=== PATIENT | male | born 1940 | race Caucasian/White ===

== ENCOUNTER 2018-02-20 07:35 | Emergency (ER) | payer MEDICARE, OTHER ==
[2018-02-20] MEDS: Albuterol/Ipratropium 3.0-0.5 MG/3 ML Neb Soln NEB ONE (08:36)
[2018-02-20] MEDS: methylPREDNISolone Sodium Succinate 125 MG/2 ML SDV IVPUSH ONE (08:36)
[2018-02-20] MEDS: Sodium Chloride 0.9% 10 ML Syringe FLUSH PRN (08:36)
--- NOTE | 2018-02-20 08:37 | EDM.PDOC ---
ED HPI GENERAL MEDICAL PROBLEM - General Chief Complaint: Respiratory Problem Stated Complaint: DIFFICULTY BREATHING Time Seen by Provider: 02/20/18 08:19 Source of Information: Reports: Patient, Old Records, RN Notes Reviewed History Limitations: Reports: No Limitations - History of Present Illness INITIAL COMMENTS - FREE TEXT/NARRATIVE: 78-year-old gentleman presents to the emergency department today with complaint of shortness of breath, he states is been short of breath for the last 3 or 4 days he has been actively wheezing he normally uses antibiotic and prednisone however he is out of those medications when he gets in this position. 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 - Related Data Allergies Allergy/AdvReac Type Severity Reaction Status Date / Time No Known Allergies Allergy Verified 02/20/18 07:47 Home Meds: Home Meds Albuterol [Ventolin HFA] 2 puff IN ASDIRECTED PRN 02/20/18 [History] Aspirin [Halfprin] 1 tab PO DAILY 02/20/18 [History] Fexofenadine [Manisha] 1 tab PO ASDIRECTED 02/20/18 [History] Fluticasone/Salmeterol [Advair 500-50] 1 puff IH BID 02/20/18 [History] Lisinopril 40 mg PO DAILY 02/20/18 [History] Metoprolol Succinate [Toprol XL] 1 tab PO DAILY 02/20/18 [History] Triamterene/Hydrochlorothiazid [Maxzide 75 mg-50 mg Tablet] 1 tab PO DAILY 02/20 [History] amLODIPine Besylate [Amlodipine Besylate] 10 mg PO DAILY 02/20/18 [History] atorvaSTATin Calcium [Lipitor] 20 mg PO BEDTIME 02/20/18 [History] metFORMIN [Glucophage] 1,000 mg PO BIDMEALS 02/20/18 [History] predniSONE 20 mg PO DAILY 02/20/18 [History] Past Medical History HEENT History: Reports: Hard of Hearing, Impaired Vision Cardiovascular History: Reports: Arrhythmia, Hypertension Respiratory History: Reports: COPD, SOB, Other (See Below) Other Respiratory History: Aspergillus Gastrointestinal History: Reports: Other (See Below) Other Gastrointestinal History: umbilical hernia Musculoskeletal History: Reports: Fracture Endocrine/Metabolic History: Reports: Diabetes, Type II, Other (See Below) Other Endocrine/Metabolic History: hyperlipidemia - Past Surgical History HEENT Surgical History: Reports: Adenoidectomy, Tonsillectomy Social & Family History - Tobacco Use Smoking Status *Q: Never Smoker - Caffeine Use Caffeine Use: Reports: None - Recreational Drug Use Recreational Drug Use: No ED ROS GENERAL - Review of Systems Review Of Systems: See Below Constitutional: Denies: Fever, Chills HEENT: Reports: No Symptoms Respiratory: Reports: Shortness of Breath, Wheezing, Cough, Sputum Cardiovascular: Reports: Dyspnea on Exertion GI/Abdominal: Reports: No Symptoms : Reports: No Symptoms Musculoskeletal: Reports: No Symptoms Skin: Reports: No Symptoms Neurological: Reports: No Symptoms ED EXAM, GENERAL - Physical Exam Exam: See Below Free Text/Narrative:: General: Male, visibly short of breath, tripoding but not in distress, alert and oriented x3 HEENT: head is atraumatic normocephalic, eyes pupils equal round reactive to light, sclera clear no conjunctivitis appreciated. Ears tympanic membranes clear and hallman landmarks and light reflex are present bilaterally canals are clear. Nose no septal deviation, nares are clear, no blood present. Mouth mucosa is moist and pink no erythema or exudate noted in soft palate, tongue is midline uvula is midline, dentition is intact. Neck: Supple no thyromegaly no tracheal deviation. Nodes: Cervical nodes subclavicular nodes nontender no palpable lymphadenopathy noted. Lungs: Inspiratory next story wheeze bilaterally throughout all lung rodriguez CV: Regular rate and rhythm S1 and S2 appreciated no murmurs rubs or gallops noted. Abdomen: Soft, nontender, no palpable masses or organomegaly appreciated, no distention no guarding bowel sounds are present, Course - Vital Signs Last Recorded V/S: Last Vital Signs Temp 95.5 F 02/20/18 07:50 Pulse 103 H 02/20/18 07:50 Resp 20 02/20/18 07:50 BP 188/90 H 02/20/18 07:50 Pulse Ox 93 L 02/20/18 07:50 - Orders/Labs/Meds Orders: Active Orders 24 hr Category Date Time Status Peripheral IV Care [RC] . DIRECTED Care 02/20/18 08:24 Active RT Aerosol Therapy [RC] ASDIRECTED Care 02/20/18 08:25 Active Chest 1V Frontal [CR] Urgent Exams 02/20/18 08:24 Taken CULTURE RESPIRATORY + SMEAR [RM] Urgent Lab 02/20/18 08:24 Ordered Sodium Chloride 0.9% [Saline Flush] Med 02/20/18 08:24 Active 10 ml FLUSH ASDIRECTED PRN Peripheral IV Insertion Adult [OM.PC] Urgent Oth 02/20/18 08:24 Ordered Medication Orders Sodium Chloride (Saline Flush) 10 ml FLUSH ASDIRECTED PRN PRN Reason: Keep Vein Open Last Admin: 02/20/18 08:36 Dose: 10 ml Labs: Laboratory Tests 02/20/18 02/20/18 02/20/18 Range/Units 08:24 08:24 09:03 WBC 10.7 (4.5-11.0) K/uL RBC 5.54 (4.30-5.90) M/uL Hgb 16.4 H (12.0-15.0) g/dL Hct 50.6 (40.0-54.0) % MCV 91 (80-98) fL MCH 30 (27-31) pg MCHC 32 (32-36) % Plt Count 284 (150-400) K/uL Neut % (Auto) 66 (36-66) % Lymph % (Auto) 11 L (24-44) % [place] % (Auto) 10 H (2-6) % Eos % (Auto) 12 H (2-4) % Baso % (Auto) 0 (0-1) % Puncture Site Lt radial ABG pH 7.320 L (7.350-7.450) ABG pCO2 52.3 H (35.0-42.0) mmHg ABG pO2 56.8 L (75.0-100.0) mmHg ABG HCO3 26.1 H (22.0-26.0) mmol/L ABG Total CO2 22.4 L (23.0-27.0) mmol/L ABG O2 Saturation 83.9 L (95.0-98.0) % ABG O2 Content 20.6 (15.0-23.0) %vol ABG Base Excess -0.7 mm/L ABG Hemoglobin 17.8 (13.5-18.0) g/dL ABG Oxyhemoglobin 82.6 % ABG Carboxyhemoglobin 0.8 (0.0-1.6) % ABG Methemoglobin 0.7 % Jelani Test Pass O2 Delivery Device Nasal cannula Oxygen Flow Rate L Sodium 133 L (140-148) mmol/L Potassium 4.6 (3.6-5.2) mmol/L Chloride 97 L (100-108) mmol/L Carbon Dioxide 29 (21-32) mmol/L Anion Gap 11.6 (5.0-14.0) mmol/L BUN 20 H (7-18) mg/dL Creatinine 1.1 (0.8-1.3) mg/dL Est Cr Clr Drug Dosing 55.27 mL/min Estimated GFR (MDRD) > 60 (>60) Glucose 171 H (74-106) mg/dL Calcium 8.7 (8.5-10.1) mg/dL Total Bilirubin 0.4 (0.2-1.0) mg/dL AST 19 (15-37) U/L ALT 19 (12-78) U/L Alkaline Phosphatase 82 (46-116) U/L Troponin I < 0.017 (0.000-0.056) ng/mL Total Protein 8.3 H (6.4-8.2) g/dL Albumin 3.2 L (3.4-5.0) g/dL Globulin 5.1 H (2.3-3.5) g/dL Albumin/Globulin Ratio 0.6 L (1.2-2.2) Meds: Medications Generic Name Dose Route Start Last Admin Trade Name Freq PRN Reason Stop Dose Admin Sodium Chloride 10 ml 02/20/18 08:24 02/20/18 08:36 Saline Flush FLUSH 10 ml ASDIRECTED PRN Administration Keep Vein Open Discontinued Medications Generic Name Dose Route Start Last Admin Trade Name Freq PRN Reason Stop Dose Admin Albuterol/Ipratropium 3 ml 02/20/18 08:24 02/20/18 08:36 Duoneb 3.0-0.5 Mg/3 Ml NEB 02/20/18 08:25 3 ml ONETIME ONE Administration Methylprednisolone Sodium Succinate 125 mg 02/20/18 08:24 02/20/18 08:36 Solu-Medrol IVPUSH 02/20/18 08:25 125 mg ONETIME ONE Administration - Re-Assessments/Exams Free Text/Narrative Re-Assessment/Exam: 02/20/18 09:55 Patient continues to be hypoxic did respond well to BiPAP but is refusing to stay for admission, feels he can try this as an outpatient treatment Departure - Departure Time of Disposition: 10:25 Disposition: Home, Self-Care 01 Condition: Fair Clinical Impression: COPD exacerbation - Discharge Information Referrals: Vincent Childress MD [Primary Care Provider] - Forms: ED Department Discharge Additional Instructions: Take full course of antibiotics, take full course of prednisone, please return to the emergency department worsening of symptoms, follow-up with your primary care on Wednesday if possible - My Orders Last 24 Hours: My Active Orders 02/20/18 08:24 Peripheral IV Care [RC] . DIRECTED Chest 1V Frontal [CR] Urgent CULTURE RESPIRATORY + SMEAR [RM] Urgent Sodium Chloride 0.9% [Saline Flush] 10 ml FLUSH ASDIRECTED PRN Peripheral IV Insertion Adult [OM.PC] Urgent 02/20/18 08:25 RT Aerosol Therapy [RC] ASDIRECTED - Assessment/Plan Last 24 Hours: My Active Orders 02/20/18 08:24 Peripheral IV Care [RC] . DIRECTED Chest 1V Frontal [CR] Urgent CULTURE RESPIRATORY + SMEAR [RM] Urgent Sodium Chloride 0.9% [Saline Flush] 10 ml FLUSH ASDIRECTED PRN Peripheral IV Insertion Adult [OM.PC] Urgent 02/20/18 08:25 RT Aerosol Therapy [RC] ASDIRECTED Plan: Assessment Acuity = acute Site and laterality = COPD exacerbation Etiology = uncertain etiology Manifestations = hypoxic Location of injury = Home Lab values = CBC unremarkable, pH low at 7.32 PCO2 elevated 52.3 bicarbonate 26.1 sodium low at 133 consistent hyponatremia chest x-ray I did review films myself I cannot appreciate any acute process, the official read from radiology is pending Plan I did recommend hospital admission this gentleman had [facility] try to commit system meant to stay the hospital he adamantly refused and therefore will treat with a short course of prednisone none 20 mg once a day 5 days doxycycline 100 mg by mouth twice a day 7 days follow-up with primary care as soon as possible or return to the emergency department This note was dictated using [employer] voice recognition software please call with any questions on syntax or grammar.
--- NOTE | 2018-02-21 14:32 | CR ---
Portable chest Comparison: 2013. The heart and vascular structures appear within normal limits. There are no infiltrates or effusions. Impression: 1. No acute findings.
== END 2018-02-20 10:57 | disposition home or self-care (01) ==
LOC: JP.ED 07:35
DX: J44.1 Chronic obstructive pulmonary disease with (acute) exacerbation (principal); I10 Essential (primary) hypertension; E11.9 Type 2 diabetes mellitus without complications; Z79.899 Other long term (current) drug therapy; Z79.84 Long term (current) use of oral hypoglycemic drugs; Z79.82 Long term (current) use of aspirin
CPT/HCPCS: 36415; 36600; 71045; 80053; 82803; 84484; 85025; 94640; 96374; 99285; J2930; J7050; J7620

== ENCOUNTER 2018-08-18 09:59 | Emergency (ER) | payer MEDICARE, OTHER ==
[2018-08-18] MEDS ORDERED: Albuterol/Ipratropium 3.0-0.5 MG/3 ML Neb Soln NEB ONE (10:20)
[2018-08-18] MEDS ORDERED: Sodium Chloride 0.9% 10 ML Syringe FLUSH PRN (10:20)
--- NOTE | 2018-08-18 10:26 | EDM.PDOC ---
ED HPI GENERAL MEDICAL PROBLEM - General Chief Complaint: Respiratory Problem Stated Complaint: SOB Time Seen by Provider: 08/18/18 10:15 Source of Information: Reports: Patient, Old Records History Limitations: Reports: No Limitations - History of Present Illness INITIAL COMMENTS - FREE TEXT/NARRATIVE: 78 yo male presents with SOB getting worse over the pasts few days. No fever or chest pain. Some orthopnea and VENTURA. No leg swelling. Has an inhaler that is not helping. Quit smoking about 20 yrs ago. Cough productive of white sputum. Here with his son. Onset: Gradual Onset Date: 08/15/18 Duration: Day(s):, Getting Worse Location: Reports: Chest Quality: Reports: Other (no pain) Severity: Moderate Improves with: Reports: Rest Worsens with: Reports: Movement Context: Reports: Other (See HPI) Associated Symptoms: Reports: Cough, Shortness of Breath. Denies: Chest Pain, Fever/Chills Treatments TRAFFIC ASSISTANT: Reports: Other (see below) (Home MDI inhaler) - Related Data Allergies Allergy/AdvReac Type Severity Reaction Status Date / Time No Known Allergies Allergy Verified 08/18/18 10:12 Home Meds: Home Meds Albuterol [Ventolin HFA] 2 puff IN ASDIRECTED PRN 02/20/18 [History] Aspirin [Halfprin] 1 tab PO DAILY 02/20/18 [History] Fexofenadine [Manisha] 1 tab PO ASDIRECTED 02/20/18 [History] Fluticasone/Salmeterol [Advair 500-50] 1 puff IH BID 02/20/18 [History] Lisinopril 40 mg PO DAILY 02/20/18 [History] Metoprolol Succinate [Toprol XL] 1 tab PO DAILY 02/20/18 [History] Triamterene/Hydrochlorothiazid [Maxzide 75 mg-50 mg Tablet] 1 tab PO DAILY 02/20 [History] amLODIPine Besylate [Amlodipine Besylate] 10 mg PO DAILY 02/20/18 [History] atorvaSTATin Calcium [Lipitor] 20 mg PO BEDTIME 02/20/18 [History] metFORMIN [Glucophage] 1,000 mg PO BIDMEALS 02/20/18 [History] predniSONE 20 mg PO DAILY 02/20/18 [History] Past Medical History HEENT History: Reports: Hard of Hearing, Impaired Vision Cardiovascular History: Reports: Arrhythmia, Hypertension Respiratory History: Reports: COPD, SOB, Other (See Below) Other Respiratory History: Aspergillus Gastrointestinal History: Reports: Other (See Below) Other Gastrointestinal History: umbilical hernia Musculoskeletal History: Reports: Fracture Endocrine/Metabolic History: Reports: Diabetes, Type II, Other (See Below) Other Endocrine/Metabolic History: hyperlipidemia - Past Surgical History HEENT Surgical History: Reports: Adenoidectomy, Tonsillectomy Social & Family History - Tobacco Use Smoking Status *Q: Former Smoker Used Tobacco, but Quit: Yes Month/Year Tobacco Last Used: 20 - Caffeine Use Caffeine Use: Reports: None - Recreational Drug Use Recreational Drug Use: No ED ROS GENERAL - Review of Systems Review Of Systems: See Below Constitutional: Denies: Fever, Chills HEENT: Reports: No Symptoms Respiratory: Reports: Shortness of Breath, Cough, Sputum (white). Denies: Wheezing, Pleuritic Chest Pain, Hemoptysis Cardiovascular: Reports: No Symptoms Endocrine: Reports: No Symptoms GI/Abdominal: Reports: No Symptoms : Reports: No Symptoms Musculoskeletal: Reports: No Symptoms Skin: Reports: No Symptoms Neurological: Reports: No Symptoms Psychiatric: Reports: No Symptoms ED EXAM, GENERAL - Physical Exam Exam: See Below Exam Limited By: No Limitations General Appearance: Alert, WD/WN, No Apparent Distress Eye Exam: Bilateral Eye: Normal Inspection Ears: Normal External Exam, Normal Canal, Hearing Grossly Normal Ear Exam: Bilateral Ear: Auricle Normal, Canal Normal Nose: Normal Inspection, Normal Mucosa, No Blood Throat/Mouth: Normal Inspection, Normal Lips, Normal Oropharynx, Normal Voice, No Airway Compromise Head: Atraumatic, Normocephalic Neck: Normal Inspection Respiratory/Chest: No Respiratory Distress, Lungs Clear, Decreased Breath Sounds , Other (mild tachypnea). No: Normal Breath Sounds Cardiovascular: Regular Rate, Rhythm, No Edema GI/Abdominal: Normal Bowel Sounds, Soft, Non-Tender, No Distention Back Exam: Normal Inspection. No: CVA Tenderness (R), CVA Tenderness (L) Extremities: Normal Inspection, Normal Range of Motion, Non-Tender, No Pedal Edema Neurological: Alert, Oriented, CN II-XII Intact, Normal Cognition, No Motor/ Sensory Deficits Psychiatric: Normal Affect, Normal Mood Skin Exam: Warm, Dry, Intact, Normal Color, No Rash EKG INTERPRETATION EKG Date: 08/18/18 Time: 11:20 Rhythm: NSR Rate (Beats/Min): 102 [place]: Normal P-Wave: Present QRS: Normal ST-T: Elevated (anterior leads) QT: Normal Comparison: NA - No Prior EKG EKG Interpretation Comments: subacute anterior ME Course - Vital Signs Last Recorded V/S: Last Vital Signs Temp 35.6 C 08/18/18 10:20 Pulse 109 H 08/18/18 10:20 Resp 19 08/18/18 10:20 BP 168/112 H 08/18/18 10:20 Pulse Ox 92 L 08/18/18 10:20 - Orders/Labs/Meds Orders: Active Orders 24 hr Category Date Time Status Cardiac Monitoring [RC] .As Directed Care 08/18/18 10:21 Active RT Aerosol Therapy [RC] ASDIRECTED Care 08/18/18 10:20 Active Furosemide [Lasix] Med 08/18/18 11:13 Once 40 mg IVPUSH ONETIME ONE Metoprolol Tartrate [Lopressor] Med 08/18/18 11:13 Once 25 mg PO ONETIME ONE Sodium Chloride 0.9% [Saline Flush] Med 08/18/18 10:20 Active 10 ml FLUSH ASDIRECTED PRN Saline Lock Insert [OM.PC] Routine Oth 08/18/18 10:20 Ordered Medication Orders Sodium Chloride (Saline Flush) 10 ml FLUSH ASDIRECTED PRN PRN Reason: Keep Vein Open Last Admin: 08/18/18 10:27 Dose: 10 ml Labs: Laboratory Tests 08/18/18 08/18/18 08/18/18 Range/Units 10:27 10:27 10:27 WBC 14.5 H (4.5-11.0) K/uL RBC 5.56 (4.30-5.90) M/uL Hgb 16.3 H (12.0-15.0) g/dL Hct 50.4 (40.0-54.0) % MCV 91 (80-98) fL MCH 29 (27-31) pg MCHC 32 (32-36) % Plt Count 291 (150-400) K/uL D-Dimer, Quantitative 132 (0.0-400.0) ng/mL Sodium 131 L (140-148) mmol/L Potassium 4.1 (3.6-5.2) mmol/L Chloride 94 L (100-108) mmol/L Carbon Dioxide 29 (21-32) mmol/L Anion Gap 12.1 (5.0-14.0) mmol/L BUN 19 H (7-18) mg/dL Creatinine 1.1 (0.8-1.3) mg/dL Est Cr Clr Drug Dosing 51.56 mL/min Estimated GFR (MDRD) > 60 (>60) Glucose 391 H (74-106) mg/dL Calcium 8.7 (8.5-10.1) mg/dL Troponin I 0.513 H* (0.000-0.056) ng/mL Meds: Medications Generic Name Dose Route Start Last Admin Trade Name Freq PRN Reason Stop Dose Admin Sodium Chloride 10 ml 08/18/18 10:20 08/18/18 10:27 Saline Flush FLUSH 10 ml ASDIRECTED PRN Administration Keep Vein Open Discontinued Medications Generic Name Dose Route Start Last Admin Trade Name Freq PRN Reason Stop Dose Admin Albuterol/Ipratropium 3 ml 08/18/18 10:20 08/18/18 10:50 Duoneb 3.0-0.5 Mg/3 Ml NEB 08/18/18 10:21 3 ml ONETIME ONE Administration Aspirin 324 mg 08/18/18 11:10 Aspirin PO 08/18/18 11:11 ONETIME ONE - Radiology Interpretation Free Text/Narrative:: CXR-mild CHF Departure - Departure Time of Disposition: 11:45 Disposition: DC/Tfer to Acute Hospital 02 Condition: Serious Clinical Impression: Acute anterior wall ME Hyperglycemia due to type 2 diabetes mellitus Qualifiers: Diabetes mellitus jail insulin use: without jail use Qualified Code(s ): E11.65 - Type 2 diabetes mellitus with hyperglycemia - Discharge Information *PRESCRIPTION DRUG MONITORING PROGRAM REVIEWED*: No *COPY OF PRESCRIPTION DRUG MONITORING REPORT IN PATIENT VINCE: No Referrals: PCP,None [Primary Care Provider] - Forms: ED Department Discharge - My Orders Last 24 Hours: My Active Orders 08/18/18 10:20 RT Aerosol Therapy [RC] ASDIRECTED Sodium Chloride 0.9% [Saline Flush] 10 ml FLUSH ASDIRECTED PRN Saline Lock Insert [OM.PC] Routine 08/18/18 10:21 Cardiac Monitoring [RC] .As Directed 08/18/18 11:13 Furosemide [Lasix] 40 mg IVPUSH ONETIME ONE Metoprolol Tartrate [Lopressor] 25 mg PO ONETIME ONE - Assessment/Plan Last 24 Hours: My Active Orders 08/18/18 10:20 RT Aerosol Therapy [RC] ASDIRECTED Sodium Chloride 0.9% [Saline Flush] 10 ml FLUSH ASDIRECTED PRN Saline Lock Insert [OM.PC] Routine 08/18/18 10:21 Cardiac Monitoring [RC] .As Directed 08/18/18 11:13 Furosemide [Lasix] 40 mg IVPUSH ONETIME ONE Metoprolol Tartrate [Lopressor] 25 mg PO ONETIME ONE
--- NOTE | 2018-08-18 11:07 | CRLCR ---
INDICATION: SOB. TECHNIQUE: PA and lateral. COMPARISON: 02/20/2018. FINDINGS: Pulmonary venous congestion, fissure all thickening and bronchial wall thickening, suggesting interstitial edema. No obvious airspace infiltrate. No obvious pleural effusion. The mild hyperinflation. Heart size normal. No significant bony abnormality. IMPRESSION: 1. Apparent mild CHF with interstitial edema. No obvious airspace infiltrate. 2. Mild hyperinflation. Dictated by Frank Morris MD @ Aug 18 2018 10:58AM Signed by Dr. Frank Morris @ Aug 18 2018 11:06AM
[2018-08-18] MEDS ORDERED: Aspirin 81 MG Tab.Chew PO ONE (11:10)
[2018-08-18] MEDS ORDERED: Furosemide 40 MG/4 ML VIAL IVPUSH ONE (11:13)
[2018-08-18] MEDS ORDERED: Metoprolol Tartrate 25 MG Tab PO ONE (11:13)
[2018-08-18] MEDS ORDERED: Clopidogrel 75 MG Tab PO ONE ×2 (11:23→11:26)
[2018-08-18] MEDS ORDERED: Heparin Sodium 5,000 Units/ML Vial IVPUSH ONE (11:23)
[2018-08-18] MEDS ORDERED: Heparin Sodium/D5W 25,000 UNITS/500 ML BAG IV SCH (11:30)
== END 2018-08-18 12:11 ==
LOC: JP.ED 09:59
DX: I21.09 ST elevation (STEMI) myocardial infarction involving other coronary artery of anterior wall (principal); E11.65 Type 2 diabetes mellitus with hyperglycemia; I10 Essential (primary) hypertension; Z87.891 Personal history of nicotine dependence; Z79.899 Other long term (current) drug therapy; Z79.82 Long term (current) use of aspirin; Z79.84 Long term (current) use of oral hypoglycemic drugs
CPT/HCPCS: 36415; 71046; 80048; 84484; 85027; 85379; 93005; 94640; 96374; 96375; 99285; A9270; J1644; J1940; J7620-GY

== ENCOUNTER 2020-02-29 10:51 | Inpatient (IN) | payer MEDICARE, OTHER ==
[2020-02-29] MEDS ORDERED: Sodium Chloride 0.9% 10 ML Syringe FLUSH PRN ×2 (11:17→15:03)
--- NOTE | 2020-02-29 11:51 | EDM.PDOC ---
ED HPI GENERAL MEDICAL PROBLEM - General Chief Complaint: General Stated Complaint: WEAK, LETHARGIC Time Seen by Provider: 02/29/20 11:35 Source of Information: Reports: Patient, Old Records, RN History Limitations: Reports: Other (poor historian) - History of Present Illness INITIAL COMMENTS - FREE TEXT/NARRATIVE: 80 yo male here with weakness/lethargy for about a week. Has not discussed with his doctor. No fever, increased SOB, CP, cough, or change in bowels. Appetite not good. Denies heavy alcohol use. Onset: Gradual Onset Date: 02/22/20 Duration: Week(s): (1), Getting Worse Location: Reports: Generalized Quality: Reports: Other (denies pain) Severity: Moderate Improves with: Reports: None Worsens with: Reports: Other (time) Context: Reports: Other (See HPI) Associated Symptoms: Reports: Loss of Appetite, Malaise, Weakness. Denies: Cough, Diaphoresis, Fever/Chills, Nausea/Vomiting, Shortness of Breath Treatments BUSINESS SOLUTIONS ANALYST: Reports: Other (see below) (none) - Related Data Allergies Allergy/AdvReac Type Severity Reaction Status Date / Time No Known Allergies Allergy Verified 02/29/20 11:37 Home Meds: Home Meds Albuterol [Ventolin HFA] 2 puff IN ASDIRECTED PRN 02/20/18 [History] Aspirin [Halfprin] 1 tab PO DAILY 02/20/18 [History] Fexofenadine [Manisha] 1 tab PO DAILY 02/20/18 [History] Fluticasone/Salmeterol [Advair 500-50] 1 puff IH BID 02/20/18 [History] Lisinopril 40 mg PO DAILY 02/20/18 [History] Metoprolol Succinate [Toprol XL] 1 tab PO DAILY 02/20/18 [History] Triamterene/Hydrochlorothiazid [Maxzide 75 mg-50 mg Tablet] 1 tab PO DAILY 02/20/18 [History] amLODIPine Besylate [Amlodipine Besylate] 10 mg PO DAILY 02/20/18 [History] atorvaSTATin Calcium [Lipitor] 20 mg PO BEDTIME 02/20/18 [History] metFORMIN [Glucophage] 1,000 mg PO BIDMEALS 02/20/18 [History] Past Medical History HEENT History: Reports: Hard of Hearing, Impaired Vision Cardiovascular History: Reports: Arrhythmia, Hypertension Respiratory History: Reports: COPD, SOB, Other (See Below) Other Respiratory History: Aspergillus Gastrointestinal History: Reports: Other (See Below) Other Gastrointestinal History: umbilical hernia Musculoskeletal History: Reports: Fracture Endocrine/Metabolic History: Reports: Diabetes, Type II, Other (See Below) Other Endocrine/Metabolic History: hyperlipidemia - Past Surgical History HEENT Surgical History: Reports: Adenoidectomy, Tonsillectomy Social & Family History - Caffeine Use Caffeine Use: Reports: None ED ROS GENERAL - Review of Systems Review Of Systems: See Below Constitutional: Reports: Malaise, Weakness, Fatigue, Decreased Appetite. Denies : Fever, Chills HEENT: Reports: No Symptoms Respiratory: Reports: No Symptoms Cardiovascular: Reports: No Symptoms Endocrine: Reports: No Symptoms GI/Abdominal: Reports: Anorexia : Reports: Dysuria (mild at times), Other (difficulty with initiating and maintaining stream. ) Musculoskeletal: Reports: No Symptoms Skin: Reports: No Symptoms Neurological: Reports: No Symptoms Psychiatric: Reports: No Symptoms ED EXAM, GENERAL - Physical Exam Exam: See Below Exam Limited By: No Limitations General Appearance: Alert, WD/WN, No Apparent Distress Eye Exam: Bilateral Eye: Normal Inspection Ears: Normal External Exam, Normal Canal, Hearing Grossly Normal, Normal TMs Ear Exam: Bilateral Ear: Auricle Normal, Canal Normal, TM normal Nose: Normal Inspection, No Blood Throat/Mouth: Normal Inspection, Normal Lips, Normal Oropharynx, Normal Voice, No Airway Compromise Head: Atraumatic, Normocephalic Neck: Normal Inspection Respiratory/Chest: No Respiratory Distress, No Accessory Muscle Use, Decreased Breath Sounds, Rhonchi (scattered) Cardiovascular: No Edema, Irregularly Irregular GI/Abdominal: Normal Bowel Sounds, Soft, Non-Tender, No Distention, Other (protuberant abdomen) Back Exam: Normal Inspection. No: CVA Tenderness (R), CVA Tenderness (L) Extremities: Normal Inspection, Normal Range of Motion, Non-Tender, No Pedal [place] Neurological: Alert, Oriented, CN II-XII Intact, Normal Cognition, No Motor/Sensory Deficits Psychiatric: Normal Affect, Normal Mood Skin Exam: Warm, Dry, Intact, Normal Color, No Rash Course - Vital Signs Text/Narrative:: Post-void bladder scan [address] Conti called @ 1332h Last Recorded V/S: Last Vital Signs Temp 37.9 C 02/29/20 11:35 Pulse 98 02/29/20 11:35 Resp 20 02/29/20 11:35 BP 131/56 L 02/29/20 11:35 Pulse Ox 96 02/29/20 11:35 - Orders/Labs/Meds Orders: Active Orders 24 hr Category Date Time Status Bladder Scan [RC] ASDIRECTED Care 02/29/20 12:18 Active Cardiac Monitoring [RC] .As Directed Care 02/29/20 11:42 Active CULTURE URINE [RM] Stat Lab 02/29/20 13:21 Received Sodium Chloride 0.9% [Normal Saline] 1,000 ml Med 02/29/20 13:30 Active IV ASDIRECTED Sodium Chloride 0.9% [Saline Flush] Med 02/29/20 11:17 Active 10 ml FLUSH ASDIRECTED PRN Saline Lock Insert [OM.PC] Routine Oth 02/29/20 11:17 Ordered Medication Orders Sodium Chloride (Normal Saline) 1,000 mls @ 150 mls/hr IV ASDIRECTED BRAIN Last Admin: 02/29/20 13:24 Dose: 150 mls/hr Documented by: [id number] Sodium Chloride (Saline Flush) 10 ml FLUSH ASDIRECTED PRN PRN Reason: Keep Vein Open Last Admin: 02/29/20 12:03 Dose: 10 ml Documented by: PREILOR Labs: Laboratory Tests 02/29/20 02/29/20 02/29/20 Range/Units 11:35 11:35 11:35 WBC Cancelled RBC Cancelled Hgb Cancelled Hct Cancelled MCV Cancelled MCH Cancelled MCHC Cancelled Plt Count Cancelled Neut % (Auto) (36-66) % Lymph % (Auto) (24-44) % [place] % (Auto) (2-6) % Eos % (Auto) (2-4) % Baso % (Auto) (0-1) % Sodium 123 L (140-148) mmol/L Potassium 5.4 H (3.6-5.2) mmol/L Chloride 90 L (100-108) mmol/L Carbon Dioxide 25 (21-32) mmol/L Anion Gap 13.4 (5.0-14.0) mmol/L BUN 31 H D (7-18) mg/dL Creatinine 1.3 (0.8-1.3) mg/dL Est Cr Clr Drug Dosing TNP Estimated GFR (MDRD) 53 L (>60) Glucose 225 H (74-106) mg/dL Calcium 8.6 (8.5-10.1) mg/dL Troponin I 0.025 (0.000-0.056) ng/mL TSH, Ultra Sensitive 1.147 (0.358-3.740) uIU/mL Urine Color (YELLOW) Urine Appearance (CLEAR) Urine pH (5.0-8.0) Ur Specific [place] (1.008-1.030) Urine Protein (NEGATIVE) mg/dL Urine Glucose (UA) (NEGATIVE) mg/dL Urine Ketones (NEGATIVE) mg/dL Urine Occult Blood (NEGATIVE) Urine Nitrite (NEGATIVE) Urine Bilirubin (NEGATIVE) Urine Urobilinogen (0.2-1.0) EU/dL Ur Leukocyte Esterase (NEGATIVE) Urine RBC (0-5) Urine WBC (0-5) Ur Epithelial Cells Amorphous Sediment Urine Bacteria Urine Mucus 02/29/20 02/29/20 Range/Units 12:04 13:30 WBC 39.6 H* RBC 3.61 L Hgb 9.4 L D Hct 29.4 L MCV 81 MCH 26 L MCHC 32 Plt Count 520 H Neut % (Auto) 91 H (36-66) % Lymph % (Auto) 2 L (24-44) % [place] % (Auto) 7 H (2-6) % Eos % (Auto) 0 L (2-4) % Baso % (Auto) 0 (0-1) % Sodium (140-148) mmol/L Potassium (3.6-5.2) mmol/L Chloride (100-108) mmol/L Carbon Dioxide (21-32) mmol/L Anion Gap (5.0-14.0) mmol/L BUN (7-18) mg/dL Creatinine (0.8-1.3) mg/dL Est Cr Clr Drug Dosing Estimated GFR (MDRD) (>60) Glucose (74-106) mg/dL Calcium (8.5-10.1) mg/dL Troponin I (0.000-0.056) ng/mL TSH, Ultra Sensitive (0.358-3.740) uIU/mL Urine Color Brown A (YELLOW) Urine Appearance Turbid A (CLEAR) Urine pH 6.0 (5.0-8.0) Ur Specific [place] 1.020 (1.008-1.030) Urine Protein 100 H (NEGATIVE) mg/dL Urine Glucose (UA) Negative (NEGATIVE) mg/dL Urine Ketones Trace H (NEGATIVE) mg/dL Urine Occult Blood Large H (NEGATIVE) Urine Nitrite Positive H (NEGATIVE) Urine Bilirubin Small H (NEGATIVE) Urine Urobilinogen 1.0 (0.2-1.0) EU/dL Ur Leukocyte Esterase Large H (NEGATIVE) Urine RBC 30-40 H (0-5) Urine WBC 50-75 H (0-5) Ur Epithelial Cells Not seen Amorphous Sediment Not seen Urine Bacteria Many Urine Mucus Not seen Meds: Medications Generic Name Dose Route Start Last Admin Trade Name Freq PRN Reason Stop Dose Admin Sodium Chloride 1,000 mls @ 150 mls/hr 02/29/20 13:30 02/29/20 13:24 Normal Saline IV 150 mls/hr ASDIRECTED BRAIN Administration Sodium Chloride 10 ml 02/29/20 11:17 02/29/20 12:03 Saline Flush FLUSH 10 ml ASDIRECTED PRN Administration Keep Vein Open Discontinued Medications Generic Name Dose Route Start Last Admin Trade Name Freq PRN Reason Stop Dose Admin Sodium Chloride 1,000 mls @ 1,000 mls/hr 02/29/20 12:03 02/29/20 12:17 Normal Saline IV 02/29/20 13:02 1,000 mls/hr .BOLUS ONE Administration Departure - Departure Time of Disposition: 13:50 Disposition: Admitted As Inpatient 68 Condition: Fair Clinical Impression: Hyponatremia, Weakness, Mild dehydration, Elevated blood sugar UTI (urinary tract infection) Qualifiers: Urinary tract infection type: site unspecified Hematuria presence: with hematuria Qualified Code(s): N39.0 - Urinary tract infection, site not specified; R31.9 - Hematuria, unspecified - Discharge Information *PRESCRIPTION DRUG MONITORING PROGRAM REVIEWED*: Not Applicable *COPY OF PRESCRIPTION DRUG MONITORING REPORT IN PATIENT VINCE: Not Applicable Referrals: Vincent Childress MD [Primary Care Provider] - Forms: ED Department Discharge Sepsis Event Note (ED) - Evaluation Sepsis Screening Result: No Definite Risk - Focused Exam Vital Signs: Vital Signs Temp Pulse Resp BP Pulse Ox 02/29/20 11:35 37.9 C 98 20 131/56 L 96 - My Orders Last 24 Hours: My Active Orders 02/29/20 11:17 Sodium Chloride 0.9% [Saline Flush] 10 ml FLUSH ASDIRECTED PRN Saline Lock Insert [OM.PC] Routine 02/29/20 11:42 Cardiac Monitoring [RC] .As Directed 02/29/20 12:18 Bladder Scan [RC] ASDIRECTED 02/29/20 13:21 CULTURE URINE [RM] Stat 02/29/20 13:30 Sodium Chloride 0.9% [Normal Saline] 1,000 ml IV ASDIRECTED - Assessment/Plan Last 24 Hours: My Active Orders 02/29/20 11:17 Sodium Chloride 0.9% [Saline Flush] 10 ml FLUSH ASDIRECTED PRN Saline Lock Insert [OM.PC] Routine 02/29/20 11:42 Cardiac Monitoring [RC] .As Directed 02/29/20 12:18 Bladder Scan [RC] ASDIRECTED 02/29/20 13:21 CULTURE URINE [RM] Stat 02/29/20 13:30 Sodium Chloride 0.9% [Normal Saline] 1,000 ml IV ASDIRECTED
[2020-02-29] MEDS ORDERED: Sodium Chloride 0.9% 1,000 ML IV ONE (12:03)
[2020-02-29] MEDS ORDERED: Sodium Chloride 0.9% 1,000 ML IV SCH (13:30)
[2020-02-29] MEDS ORDERED: cefTRIAXone 1 GM in Sodium Chloride 0.9% 50 ML IV ONE (13:35)
--- NOTE | 2020-02-29 13:56 | PCM.HP.2 ---
H&P History of Present Illness - General Date of Service: 02/29/20 Admit Problem/Dx: Admission Diagnosis/Problem Admission Diagnosis/Problem Sepsis Source of Information: Patient, Family, Provider, RN Notes Reviewed History Limitations: Reports: No Limitations - History of Present Illness Initial Comments - Free Text/Narative: Mr. Phan is a 80-year-old gentleman who was admitted through the emergency department with weakness and malaise, secondary to underlying urinary tract infection and sepsis. He has not felt well over the past week with progressive increase in fatigue and weakness. Symptoms became more severe today with profound weakness and he presented to the emergency department for further evaluation. White blood cell count was noted to be markedly elevated at 39,000 and urinalysis is consistent with underlying infection. No other obvious source of infection identified by history, physical exam or laboratory studies. He has noted recent symptoms of dysuria and hesitancy. - Related Data Allergies/Adverse Reactions: Allergies Allergy/AdvReac Type Severity Reaction Status Date / Time No Known Allergies Allergy Verified 02/29/20 11:37 Home Medications: Home Meds Albuterol [Ventolin HFA] 2 puff IN ASDIRECTED PRN 02/20/18 [History] Aspirin [Halfprin] 81 mg PO DAILY 02/20/18 [History] Fexofenadine [Manisha] 1 tab PO DAILY 02/20/18 [History] Fluticasone/Salmeterol [Advair 500-50] 1 puff IH BID 02/20/18 [History] Metoprolol Succinate [Toprol XL] 25 mg PO DAILY 02/20/18 [History] Triamterene/Hydrochlorothiazid [Maxzide 75 mg-50 mg Tablet] 1 tab PO DAILY 02/20/18 [History] amLODIPine Besylate [Amlodipine Besylate] 10 mg PO DAILY 02/20/18 [History] atorvaSTATin Calcium [Lipitor] 20 mg PO BEDTIME 02/20/18 [History] metFORMIN [Glucophage] 1,000 mg PO BIDMEALS 02/20/18 [History] lisinopriL [Lisinopril] 2.5 mg PO DAILY 02/29/20 [History] Past Medical History HEENT History: Reports: Hard of Hearing, Impaired Vision Cardiovascular History: Reports: Arrhythmia, Hypertension Respiratory History: Reports: COPD, SOB, Other (See Below) Other Respiratory History: Aspergillus Gastrointestinal History: Reports: Other (See Below) Other Gastrointestinal History: umbilical hernia Genitourinary History: Reports: None Musculoskeletal History: Reports: Fracture Other Musculoskeletal History: TOE Neurological History: Reports: None Psychiatric History: Reports: None Endocrine/Metabolic History: Reports: Diabetes, Type II, Other (See Below) Other Endocrine/Metabolic History: hyperlipidemia Immunologic History: Reports: None Oncologic (Cancer) History: Reports: None Dermatologic History: Reports: None - Infectious Disease History Infectious Disease History: Reports: Other (See Below) Other Infectious Disease History: UNKNOWN - Past Surgical History HEENT Surgical History: Reports: Adenoidectomy, Tonsillectomy Social & Family History - Tobacco Use Smoking Status *Q: Former Smoker Used Tobacco, but Quit: Yes Month/Year Tobacco Last Used: 30 YEARS - Caffeine Use Caffeine Use: Reports: None - Recreational Drug Use Recreational Drug Use: No H&P Review of Systems - Review of Systems: Review Of Systems: See Below General: Reports: Malaise, Weakness, Decreased Appetite. Denies: Fever, Chills HEENT: Reports: No Symptoms Pulmonary: Reports: No Symptoms Cardiovascular: Reports: No Symptoms Gastrointestinal: Reports: No Symptoms Genitourinary: Reports: Dysuria, Urgency, Retention. Denies: Frequency, Incontinence, Flank Pain Musculoskeletal: Reports: No Symptoms Skin: Reports: No Symptoms Psychiatric: Reports: No Symptoms Neurological: Reports: No Symptoms Hematologic/Lymphatic: Reports: No Symptoms Immunologic: Reports: No Symptoms Exam - Exam Exam: See Below - Vital Signs Vital Signs: Last Vital Signs Temp 100.4 F 02/29/20 13:53 Pulse 110 H 02/29/20 13:53 Resp 20 02/29/20 13:53 BP 141/69 H 02/29/20 13:53 Pulse Ox 98 02/29/20 13:53 Weight: 161 lb 2.526 oz - Exam Quality Assessment: DVT Prophylaxis General: Alert, Oriented, Cooperative, Mild Distress HEENT: Conjunctiva Clear, Hearing Intact, Normal Nasal Septum, Posterior Pharynx Clear, Pupils Equal. No: Mucosa Moist & [place] Neck: Supple, Trachea Midline, +2 Carotid Pulse wo Bruit Lungs: Clear to Auscultation, Normal Respiratory Effort, Decreased Breath Sounds Cardiovascular: Regular Rate, Regular Rhythm, Normal S1, Normal S2. No: Systolic Murmur, Diastolic Murmur GI/Abdominal Exam: Soft, Non-Tender, No Organomegaly, No Distention Back Exam: Normal Inspection, Full Range of Motion. No: CVA Tenderness (R), CVA Tenderness (L) Extremities: Non-Tender, No Pedal Edema Skin: Warm, Dry, Intact Neurological: Cranial Nerves Intact, Strength Equal Bilateral, Normal Speech, Normal Tone, Sensation Intact. No: Focal Deficit Neuro Extensive - Mental Status: Alert, Oriented x3, Normal Mood/Affect, Normal Cognition, Memory Intact - Patient Data Lab Results Last 24 hrs: Laboratory Results - last 24 hr 02/29/20 02/29/20 02/29/20 Range/Units 11:35 11:35 11:35 WBC Cancelled RBC Cancelled Hgb Cancelled Hct Cancelled MCV Cancelled MCH Cancelled MCHC Cancelled Plt Count Cancelled Neut % (Auto) (36-66) % Lymph % (Auto) (24-44) % [place] % (Auto) (2-6) % Eos % (Auto) (2-4) % Baso % (Auto) (0-1) % Sodium 123 L (140-148) mmol/L Potassium 5.4 H (3.6-5.2) mmol/L Chloride 90 L (100-108) mmol/L Carbon Dioxide 25 (21-32) mmol/L Anion Gap 13.4 (5.0-14.0) mmol/L BUN 31 H D (7-18) mg/dL Creatinine 1.3 (0.8-1.3) mg/dL Est Cr Clr Drug Dosing TNP Estimated GFR (MDRD) 53 L (>60) Glucose 225 H (74-106) mg/dL Calcium 8.6 (8.5-10.1) mg/dL Troponin I 0.025 (0.000-0.056) ng/mL TSH, Ultra Sensitive 1.147 (0.358-3.740) uIU/mL Urine Color (YELLOW) Urine Appearance (CLEAR) Urine pH (5.0-8.0) Ur Specific [place] (1.008-1.030) Urine Protein (NEGATIVE) mg/dL Urine Glucose (UA) (NEGATIVE) mg/dL Urine Ketones (NEGATIVE) mg/dL Urine Occult Blood (NEGATIVE) Urine Nitrite (NEGATIVE) Urine Bilirubin (NEGATIVE) Urine Urobilinogen (0.2-1.0) EU/dL Ur Leukocyte Esterase (NEGATIVE) Urine RBC (0-5) Urine WBC (0-5) Ur Epithelial Cells Amorphous Sediment Urine Bacteria Urine Mucus 02/29/20 02/29/20 Range/Units 12:04 13:30 WBC 39.6 H* RBC 3.61 L Hgb 9.4 L D Hct 29.4 L MCV 81 MCH 26 L MCHC 32 Plt Count 520 H Neut % (Auto) 91 H (36-66) % Lymph % (Auto) 2 L (24-44) % [place] % (Auto) 7 H (2-6) % Eos % (Auto) 0 L (2-4) % Baso % (Auto) 0 (0-1) % Sodium (140-148) mmol/L Potassium (3.6-5.2) mmol/L Chloride (100-108) mmol/L Carbon Dioxide (21-32) mmol/L Anion Gap (5.0-14.0) mmol/L BUN (7-18) mg/dL Creatinine (0.8-1.3) mg/dL Est Cr Clr Drug Dosing Estimated GFR (MDRD) (>60) Glucose (74-106) mg/dL Calcium (8.5-10.1) mg/dL Troponin I (0.000-0.056) ng/mL TSH, Ultra Sensitive (0.358-3.740) uIU/mL Urine Color Brown A (YELLOW) Urine Appearance Turbid A (CLEAR) Urine pH 6.0 (5.0-8.0) Ur Specific [place] 1.020 (1.008-1.030) Urine Protein 100 H (NEGATIVE) mg/dL Urine Glucose (UA) Negative (NEGATIVE) mg/dL Urine Ketones Trace H (NEGATIVE) mg/dL Urine Occult Blood Large H (NEGATIVE) Urine Nitrite Positive H (NEGATIVE) Urine Bilirubin Small H (NEGATIVE) Urine Urobilinogen 1.0 (0.2-1.0) EU/dL Ur Leukocyte Esterase Large H (NEGATIVE) Urine RBC 30-40 H (0-5) Urine WBC 50-75 H (0-5) Ur Epithelial Cells Not seen Amorphous Sediment Not seen Urine Bacteria Many Urine Mucus Not seen Result Diagrams: 02/29/20 12:04 02/29/20 11:35 Sepsis Event Note - Evaluation Sepsis Screening Result: No Definite Risk - Focused Exam Vital Signs: Vital Signs Temp Pulse Resp BP Pulse Ox 02/29/20 13:53 100.4 F 110 H 20 141/69 H 98 02/29/20 11:35 100.3 F 98 20 131/56 L 96 *Q Meaningful Use (ADM) - VTE Risk Assess *Q Each Risk Factor Represents 1 Point: Abnormal Pulmonary Function (COPD) Total Score 1 Point Risk Factors: 1 Each Risk Factor Represents 2 Points: None Total Score 2 Point Risk Factors: 0 Each Risk Factor Represents 3 Points: Age 75 Years or Greater Total Score 3 Point Risk Factors: 3 Each Risk Factor Represents 5 Points: None Total Score 5 Point Risk Factors: 0 Venous Thromboembolism Risk Factor Score *Q: 4 Problem List Initiated/Reviewed/Updated: Yes Orders Last 24hrs: Active Orders 24 hr Category Date Time Status Patient Status Manage Transfer [TRANSFER] Routine ADT 02/29/20 13:46 Ordered Bladder Scan [RC] ASDIRECTED Care 02/29/20 12:18 Active Cardiac Monitoring [RC] .As Directed Care 02/29/20 11:42 Active CULTURE BLOOD [BC] Stat Lab 02/29/20 13:55 Ordered CULTURE BLOOD [BC] Stat Lab 02/29/20 13:55 Ordered CULTURE URINE [RM] Stat Lab 02/29/20 13:21 Received Sodium Chloride 0.9% [Normal Saline] 1,000 ml Med 02/29/20 13:30 Active IV ASDIRECTED Sodium Chloride 0.9% [Saline Flush] Med 02/29/20 11:17 Active 10 ml FLUSH ASDIRECTED PRN cefTRIAXone [Rocephin] 1 gm Med 02/29/20 13:35 Active Sodium Chloride 0.9% [Normal Saline] 50 ml IV ONETIME Saline Lock Insert [OM.PC] Routine Oth 02/29/20 11:17 Ordered Resuscitation Status Routine Resus Stat 02/29/20 13:50 Ordered Medication Orders Sodium Chloride (Normal Saline) 1,000 mls @ 150 mls/hr IV ASDIRECTED BRAIN Last Admin: 02/29/20 13:24 Dose: 150 mls/hr Documented by: [id number] Ceftriaxone Sodium 1 gm/ (Sodium Chloride) 50 mls @ 100 mls/hr IV ONETIME ONE Stop: 02/29/20 14:04 Last Admin: 02/29/20 13:52 Dose: 100 mls/hr Documented by: PREILOR Sodium Chloride (Saline Flush) 10 ml FLUSH ASDIRECTED PRN PRN Reason: Keep Vein Open Last Admin: 02/29/20 12:03 Dose: 10 ml Documented by: PREILOR Assessment/Plan Comment:: ASSESSMENT AND PLAN COMPLICATED URINARY TRACT INFECTION WITH SEPSIS-he is noted some symptoms over the past week with progressive fatigue and dysuria. Marked weakness and fatigue noted today so he presented to the emergency department. Marked leukocytosis with evidence of urinary tract infection noted on urinalysis. -Urine and blood cultures pending -Vigorous IV fluid replacement per sepsis protocol given in emergency department -IV ceftriaxone pending culture results COPD-no evidence of acute exacerbation -Supplemental oxygen and nebulizer therapy as needed -Outpatient medications TYPE 2 DIABETES MELLITUS -Hold metformin -4 times daily glucometers -Low-dose sliding scale Humalog MAINTENANCE ISSUES -DVT prophylaxis; Lovenox 40 mg subcu daily -GI prophylaxis; not indicated -[place] catheter; not indicated -Nutrition; consistent carb diet -Nicotine dependence; not required CODE STATUS-FULL CODE ADMISSION STATUS-patient will be admitted to inpatient status, expect at least a 2 night hospital stay for evaluation and management of problems as outlined above. At the time of this admission I do not reasonably expected evaluation and management of this problem will require more than a 96 hour hospital stay. DISPOSITION-anticipate discharge to home after the hospital stay. PRIMARY CARE PROVIDER-Dr. Childress - Mortality Measure Prognosis:: Good
[2020-02-29] MEDS ORDERED: FEXOFENADINE PO SCH (15:03)
[2020-02-29] MEDS ORDERED: Polyethylene Glycol 3350 Powder 17 GM Packet PO PRN (15:03)
[2020-02-29] MEDS ORDERED: 50% Dextrose in Water 50 ML Syringe IV PRN (15:03)
[2020-02-29] MEDS ORDERED: Albuterol/Ipratropium 3.0-0.5 MG/3 ML Neb Soln NEB PRN (15:03)
[2020-02-29] MEDS ORDERED: Glucose Gel 15 GM in 37.5 GM Tube PO PRN (15:03)
[2020-02-29] MEDS ORDERED: Ondansetron 4 MG/2 ML SDV IV PRN (15:03)
[2020-02-29] MEDS: Albuterol 8 GM Inhaler INH PRN (17:13)
[2020-02-29] MEDS: Enoxaparin 40 MG/0.4 ML Syringe SUBCUT SCH (17:14)
[2020-02-29] MEDS: Loratadine 10 MG Tab PO SCH ×2 (17:15→17:17)
[2020-02-29] MEDS: Insulin Lispro 100 Unit/ML 3 ML KwikPen SUBCUT SCH ×2 (17:21→21:00)
[2020-02-29] MEDS: Sodium Chloride 0.9% 1,000 ML IV SCH (18:35)
[2020-02-29] MEDS ORDERED: Non-Formulary Medication 1 Each (Fluticasone/Salmeterol [Advair 500-50] 1 PUFF) IH SCH (21:00)
[2020-02-29] MEDS: atorvaSTATin 20 MG Tab PO SCH (21:00)
[2020-03-01] MEDS: Sodium Chloride 0.9% 1,000 ML IV SCH (02:38)
[2020-03-01] MEDS: Albuterol 8 GM Inhaler INH PRN (02:40)
[2020-03-01] MEDS ORDERED: Mometasone Furoate HFA 100mcg/Puff 13 GM Inhaler INH SCH (07:15)
[2020-03-01] MEDS: Spironolactone 25 MG Tab PO SCH (08:26)
[2020-03-01] MEDS: Aspirin 81 MG Tab.EC PO SCH (08:26)
[2020-03-01] MEDS: Metoprolol Succinate 25 MG Tab.ER PO SCH (08:26)
[2020-03-01] MEDS: Lisinopril 2.5 MG Tab PO SCH (08:26)
[2020-03-01] MEDS: Clopidogrel 75 MG Tab PO SCH (08:27)
[2020-03-01] MEDS: Insulin Lispro 100 Unit/ML 3 ML KwikPen SUBCUT SCH ×4 (08:29→21:09)
[2020-03-01] MEDS ORDERED: [UNRECOGNIZED DRUG - OTHER] PO SCH (09:00)
[2020-03-01] MEDS ORDERED: Lisinopril 2.5 MG Tab PO SCH (09:00)
[2020-03-01] MEDS ORDERED: Non-Formulary Medication 1 Each (Lisinopril [Lisinopril] 40 MG) PO SCH (09:00)
[2020-03-01] MEDS ORDERED: Non-Formulary Medication 1 Each (Amlodipine Besylate [Amlodipine Besylate] 10 MG) PO SCH (09:00)
[2020-03-01] MEDS: Formoterol/Mometasone 100-5 MCG 8.8 GM Inhaler IH SCH ×2 (09:32→21:07)
--- NOTE | 2020-03-01 10:05 | PCM.PN ---
- General Info Date of Service: 03/01/20 Subjective Update: Mr. Phan feels improved this morning, somewhat stronger with improvement in appetite. No significant temperature elevation over the past several hours. White blood cell count has improved but remains significantly elevated. Signs have been stable with no hemodynamic instability. Functional Status: Reports: Tolerating Diet, Ambulating, Urinating - Review of Systems General: Reports: Fever, Weakness, Fatigue, Chills Pulmonary: Reports: No Symptoms Cardiovascular: Reports: No Symptoms Gastrointestinal: Reports: No Symptoms Genitourinary: Reports: Frequency, Burning, Retention - Patient Data Vitals - Most Recent: Last Vital Signs Temp 97.9 F 03/01/20 07:46 Pulse 68 03/01/20 08:26 Resp 16 03/01/20 07:46 BP 136/106 H 03/01/20 08:26 Pulse Ox 90 L 03/01/20 07:46 Weight - Most Recent: 163 lb 3.2 oz I&O - Last 24 Hours: Intake & Output 02/29/20 03/01/20 03/01/20 22:59 06:59 14:59 Intake Total 100 1749 300 Output Total 600 225 Balance -500 1524 300 Lab Results Last 24 Hours: Laboratory Results - last 24 hr 02/29/20 02/29/20 02/29/20 Range/Units 11:35 11:35 11:35 WBC Cancelled RBC Cancelled Hgb Cancelled Hct Cancelled MCV Cancelled MCH Cancelled MCHC Cancelled Plt Count Cancelled Neut % (Auto) (36-66) % Lymph % (Auto) (24-44) % [place] % (Auto) (2-6) % Eos % (Auto) (2-4) % Baso % (Auto) (0-1) % Add Manual Diff Neutrophils % (Manual) (36-66) % Band Neutrophils % (5-11) % Lymphocytes % (Manual) (24-44) % Monocytes % (Manual) (2-6) % Sodium 123 L (140-148) mmol/L Potassium 5.4 H (3.6-5.2) mmol/L Chloride 90 L (100-108) mmol/L Carbon Dioxide 25 (21-32) mmol/L Anion Gap 13.4 (5.0-14.0) mmol/L BUN 31 H D (7-18) mg/dL Creatinine 1.3 (0.8-1.3) mg/dL Est Cr Clr Drug Dosing TNP Estimated GFR (MDRD) 53 L (>60) Glucose 225 H (74-106) mg/dL POC Glucose (74-106) MG/DL Calcium 8.6 (8.5-10.1) mg/dL Troponin I 0.025 (0.000-0.056) ng/mL TSH, Ultra Sensitive 1.147 (0.358-3.740) uIU/mL Urine Color (YELLOW) Urine Appearance (CLEAR) Urine pH (5.0-8.0) Ur Specific [place] (1.008-1.030) Urine Protein (NEGATIVE) mg/dL Urine Glucose (UA) (NEGATIVE) mg/dL Urine Ketones (NEGATIVE) mg/dL Urine Occult Blood (NEGATIVE) Urine Nitrite (NEGATIVE) Urine Bilirubin (NEGATIVE) Urine Urobilinogen (0.2-1.0) EU/dL Ur Leukocyte Esterase (NEGATIVE) Urine RBC (0-5) Urine WBC (0-5) Ur Epithelial Cells Amorphous Sediment Urine Bacteria Urine Mucus 02/29/20 02/29/20 02/29/20 Range/Units 12:04 13:30 16:24 WBC 39.6 H* RBC 3.61 L Hgb 9.4 L D Hct 29.4 L MCV 81 MCH 26 L MCHC 32 Plt Count 520 H Neut % (Auto) 91 H (36-66) % Lymph % (Auto) 2 L (24-44) % [place] % (Auto) 7 H (2-6) % Eos % (Auto) 0 L (2-4) % Baso % (Auto) 0 (0-1) % Add Manual Diff Neutrophils % (Manual) (36-66) % Band Neutrophils % (5-11) % Lymphocytes % (Manual) (24-44) % Monocytes % (Manual) (2-6) % Sodium (140-148) mmol/L Potassium (3.6-5.2) mmol/L Chloride (100-108) mmol/L Carbon Dioxide (21-32) mmol/L Anion Gap (5.0-14.0) mmol/L BUN (7-18) mg/dL Creatinine (0.8-1.3) mg/dL Est Cr Clr Drug Dosing Estimated GFR (MDRD) (>60) Glucose (74-106) mg/dL POC Glucose 183 H (74-106) MG/DL Calcium (8.5-10.1) mg/dL Troponin I (0.000-0.056) ng/mL TSH, Ultra Sensitive (0.358-3.740) uIU/mL Urine Color Brown A (YELLOW) Urine Appearance Turbid A (CLEAR) Urine pH 6.0 (5.0-8.0) Ur Specific [place] 1.020 (1.008-1.030) Urine Protein 100 H (NEGATIVE) mg/dL Urine Glucose (UA) Negative (NEGATIVE) mg/dL Urine Ketones Trace H (NEGATIVE) mg/dL Urine Occult Blood Large H (NEGATIVE) Urine Nitrite Positive H (NEGATIVE) Urine Bilirubin Small H (NEGATIVE) Urine Urobilinogen 1.0 (0.2-1.0) EU/dL Ur Leukocyte Esterase Large H (NEGATIVE) Urine RBC 30-40 H (0-5) Urine WBC 50-75 H (0-5) Ur Epithelial Cells Not seen Amorphous Sediment Not seen Urine Bacteria Many Urine Mucus Not seen 02/29/20 03/01/20 03/01/20 Range/Units 21:00 04:23 04:23 WBC 33.8 H* RBC 3.25 L Hgb 8.5 L Hct 26.4 L MCV 81 MCH 26 L MCHC 32 Plt Count 354 Neut % (Auto) [place] (36-66) % Lymph % (Auto) [place] (24-44) % [place] % (Auto) [place] (2-6) % Eos % (Auto) [place] (2-4) % Baso % (Auto) [place] (0-1) % Add Manual Diff Yes Neutrophils % (Manual) 85 H (36-66) % Band Neutrophils % 6 (5-11) % Lymphocytes % (Manual) 3 L (24-44) % Monocytes % (Manual) 6 (2-6) % Sodium 127 L (140-148) mmol/L Potassium 4.5 (3.6-5.2) mmol/L Chloride 97 L (100-108) mmol/L Carbon Dioxide 23 (21-32) mmol/L Anion Gap 11.5 (5.0-14.0) mmol/L BUN 19 H (7-18) mg/dL Creatinine 1.0 (0.8-1.3) mg/dL Est Cr Clr Drug Dosing 58.90 Estimated GFR (MDRD) > 60 (>60) Glucose 153 H (74-106) mg/dL POC Glucose 239 H (74-106) MG/DL Calcium 7.6 L (8.5-10.1) mg/dL Troponin I (0.000-0.056) ng/mL TSH, Ultra Sensitive (0.358-3.740) uIU/mL Urine Color (YELLOW) Urine Appearance (CLEAR) Urine pH (5.0-8.0) Ur Specific [place] (1.008-1.030) Urine Protein (NEGATIVE) mg/dL Urine Glucose (UA) (NEGATIVE) mg/dL Urine Ketones (NEGATIVE) mg/dL Urine Occult Blood (NEGATIVE) Urine Nitrite (NEGATIVE) Urine Bilirubin (NEGATIVE) Urine Urobilinogen (0.2-1.0) EU/dL Ur Leukocyte Esterase (NEGATIVE) Urine RBC (0-5) Urine WBC (0-5) Ur Epithelial Cells Amorphous Sediment Urine Bacteria Urine Mucus 03/01/20 Range/Units 07:30 WBC RBC Hgb Hct MCV MCH MCHC Plt Count Neut % (Auto) (36-66) % Lymph % (Auto) (24-44) % [place] % (Auto) (2-6) % Eos % (Auto) (2-4) % Baso % (Auto) (0-1) % Add Manual Diff Neutrophils % (Manual) (36-66) % Band Neutrophils % (5-11) % Lymphocytes % (Manual) (24-44) % Monocytes % (Manual) (2-6) % Sodium (140-148) mmol/L Potassium (3.6-5.2) mmol/L Chloride (100-108) mmol/L Carbon Dioxide (21-32) mmol/L Anion Gap (5.0-14.0) mmol/L BUN (7-18) mg/dL Creatinine (0.8-1.3) mg/dL Est Cr Clr Drug Dosing Estimated GFR (MDRD) (>60) Glucose (74-106) mg/dL POC Glucose 154 H (74-106) MG/DL Calcium (8.5-10.1) mg/dL Troponin I (0.000-0.056) ng/mL TSH, Ultra Sensitive (0.358-3.740) uIU/mL Urine Color (YELLOW) Urine Appearance (CLEAR) Urine pH (5.0-8.0) Ur Specific [place] (1.008-1.030) Urine Protein (NEGATIVE) mg/dL Urine Glucose (UA) (NEGATIVE) mg/dL Urine Ketones (NEGATIVE) mg/dL Urine Occult Blood (NEGATIVE) Urine Nitrite (NEGATIVE) Urine Bilirubin (NEGATIVE) Urine Urobilinogen (0.2-1.0) EU/dL Ur Leukocyte Esterase (NEGATIVE) Urine RBC (0-5) Urine WBC (0-5) Ur Epithelial Cells Amorphous Sediment Urine Bacteria Urine Mucus Kristopher Results Last 24 Hours: Microbiology 02/29/20 13:21 Urine Culture - Preliminary Urine, Clean Catch Med Orders - Current: Current Medications Acetaminophen (Tylenol) 650 mg PO Q4H PRN PRN Reason: Pain (Mild 1-3)/fever Albuterol (Ventolin Hfa) 0 gm INH Q4H PRN PRN Reason: Shortness of Breath Last Admin: 03/01/20 02:40 Dose: 2 puff Documented by: Albuterol/Ipratropium (Duoneb 3.0-0.5 Mg/3 Ml) 3 ml NEB QID PRN PRN Reason: Shortness Of Breath/wheezing Aspirin (Halfprin) 81 mg PO DAILY [facility] Last Admin: 03/01/20 08:26 Dose: 81 mg Documented by: Atorvastatin Calcium (Lipitor) 20 mg PO BEDTIME [facility] Last Admin: 02/29/20 21:00 Dose: 20 mg Documented by: Clopidogrel Bisulfate (Plavix) 75 mg PO DAILY [facility] Last Admin: 03/01/20 08:27 Dose: 75 mg Documented by: Dextrose (Glutose 15) 15 gm PO ASDIRECTED PRN PRN Reason: Hypoglycemia Dextrose/Water (Dextrose 50% In Water) 50 ml IV ASDIRECTED PRN PRN Reason: Hypoglycemia Enoxaparin Sodium (Lovenox) 40 mg SUBCUT Q24H [facility] Last Admin: 02/29/20 17:14 Dose: 40 mg Documented by: Sodium Chloride (Normal Saline) 1,000 mls @ 125 mls/hr IV ASDIRECTED [facility] Last Admin: 03/01/20 02:38 Dose: 125 mls/hr Documented by: Ceftriaxone Sodium 1 gm/ (Sodium Chloride) 50 mls @ 100 mls/hr IV Q24H [facility] Insulin Human Lispro (Humalog) 0 unit SUBCUT QIDACANDBED [facility]; Protocol Last Admin: 03/01/20 08:29 Dose: 1 unit Documented by: Lisinopril (Prinivil) 2.5 mg PO DAILY [facility] Last Admin: 03/01/20 08:26 Dose: 2.5 mg Documented by: Loratadine (Claritin) 10 mg PO DAILY [facility] Last Admin: 02/29/20 17:17 Dose: Not Given Documented by: Metoprolol Succinate (Toprol Xl) 25 mg PO DAILY [facility] Last Admin: 03/01/20 08:26 Dose: 25 mg Documented by: Mometasone Furoate/Formoterol Fumar (Dulera 100-5 Mcg) [facility] Last Admin: 03/01/20 09:32 Dose: 2 puff Documented by: Ondansetron HCl (Zofran) 4 mg IV Q4H PRN PRN Reason: Nausea/Vomiting Polyethylene Glycol (Miralax) 17 gm PO DAILY PRN PRN Reason: Constipation Sodium Chloride (Saline Flush) 10 ml FLUSH ASDIRECTED PRN PRN Reason: Keep Vein Open Spironolactone (Aldactone) 25 mg PO DAILY [facility] Last Admin: 03/01/20 08:26 Dose: 25 mg Documented by: Tamsulosin HCl (Flomax) 0.4 mg PO DAILY [facility] Discontinued Medications Sodium Chloride (Normal Saline) 1,000 mls @ 1,000 mls/hr IV .BOLUS ONE Stop: 02/29/20 13:02 Last Admin: 02/29/20 12:17 Dose: 1,000 mls/hr Documented by: Sodium Chloride (Normal Saline) 1,000 mls @ 150 mls/hr IV ASDIRECTED [facility] Last Admin: 02/29/20 13:24 Dose: 150 mls/hr Documented by: Ceftriaxone Sodium 1 gm/ (Sodium Chloride) 50 mls @ 100 mls/hr IV ONETIME ONE Stop: 02/29/20 14:04 Last Admin: 02/29/20 13:52 Dose: 100 mls/hr Documented by: Lisinopril (Prinivil) 2.5 mg PO DAILY [facility] Non-Formulary Medication (Amlodipine Besylate [Amlodipine Besylate]) 10 mg PO DAILY [facility] Non-Formulary Medication (Fluticasone/Salmeterol [Advair 500-50]) 1 puff IH [facility] Non-Formulary Medication (Triamterene/Hydrochlorothiazid [Maxzide 75 Mg-50 Mg Tablet]) 1 tab PO DAILY [facility] Sodium Chloride (Saline Flush) 10 ml FLUSH ASDIRECTED PRN PRN Reason: Keep Vein Open Last Admin: 02/29/20 12:03 Dose: 10 ml Documented by: - Exam Quality Assessment: DVT Prophylaxis General: Alert, Oriented, Mild Distress Lungs: Normal Respiratory Effort, Decreased Breath Sounds, Wheezing Cardiovascular: Regular Rate, Regular Rhythm, No Murmurs GI/Abdominal Exam: Soft, Non-Tender, No Organomegaly, No Distention Extremities: Non-Tender, No Pedal Edema Sepsis Event Note - Evaluation Sepsis Screening Result: No Definite Risk - Focused Exam Vital Signs: Vital Signs Temp Pulse Pulse Resp BP BP Pulse Ox 03/01/20 08:26 68 136/106 H 03/01/20 07:46 97.9 F 66 16 136/106 H 90 L 03/01/20 02:00 98.9 F 92 18 144/42 H 91 L 02/29/20 22:13 100.3 F 114 H 18 104/83 95 - Problem List Review Problem List Initiated/Reviewed/Updated: Yes - My Orders Last 24 Hours: My Active Orders 02/29/20 Lunch Consistent Carbohydrate Diet [DIET] 02/29/20 13:50 Resuscitation Status Routine 02/29/20 15:03 Acetaminophen [TylenoL] 650 mg PO Q4H PRN Albuterol [Ventolin HFA] 0 gm INH Q4H PRN Albuterol/Ipratropium [DuoNeb 3.0-0.5 MG/3 ML] 3 ml NEB QID PRN Dextrose 50% in Water 50 ml IV ASDIRECTED PRN Dextrose [Glutose 15] 15 gm PO ASDIRECTED PRN Ondansetron [Zofran] 4 mg IV Q4H PRN Sodium Chloride 0.9% [Saline Flush] 10 ml FLUSH ASDIRECTED PRN polyethylene glycoL 3350 [MiraLAX] 17 gm PO DAILY PRN 02/29/20 15:03 Patient Status [ADT] Routine Ambulate [RC] QID Communication Order [RC] STAT Diabetes Education [RC] Click to Edit Height and Weight [RC] DAILY Intake and Output [RC] QSHIFT Notify Provider Vital Signs [RC] ASDIRECTED Notify Provider [RC] PRN Oxygen Therapy [RC] PRN Peripheral IV Care [RC] . DIRECTED RT Aerosol Therapy [RC] ASDIRECTED RT Post Treatment Assessment [RC] Click to Edit Up With Assistance [RC] ASDIRECTED Up to Chair [RC] QID VTE/DVT Education [RC] Per Unit Routine Vital Signs [RC] Q4H Peripheral IV Insertion Adult [OM.PC] Routine 02/29/20 17:00 Enoxaparin [Lovenox] 40 mg SUBCUT Q24H Insulin Lispro [HumaLOG] See Protocol SUBCUT QIDACANDBED Loratadine [Claritin] 10 mg PO DAILY 02/29/20 21:00 atorvaSTATin [Lipitor] 20 mg PO BEDTIME 03/01/20 07:15 Mometasone/Formoterol [Dulera 100-5 MCG] 2 puff IH BIDRT 03/01/20 08:47 PT Evaluation and Treatment [CONS] Routine 03/01/20 09:00 Aspirin [Halfprin] 81 mg PO DAILY Clopidogrel [Plavix] 75 mg PO DAILY Metoprolol Succinate [Toprol XL] 25 mg PO DAILY Spironolactone [Aldactone] 25 mg PO DAILY lisinopriL [Prinivil] 2.5 mg PO DAILY 03/01/20 09:45 Tamsulosin [Flomax] 0.4 mg PO DAILY 03/01/20 10:01 Convert IV to Saline Lock [OM.PC] Routine 03/01/20 11:30 GLUCOSE POC LAB TO COLLECT JPM [POC] QIDACANDBED 03/01/20 14:00 cefTRIAXone [Rocephin] 1 gm Sodium Chloride 0.9% [Normal Saline] 50 ml IV Q24H 03/01/20 16:30 GLUCOSE POC LAB TO COLLECT JPM [POC] QIDACANDBED 03/01/20 21:00 GLUCOSE POC LAB TO COLLECT JPM [POC] QIDACANDBED 03/02/20 05:00 BASIC METABOLIC PANEL,BMP [CHEM] Timed CBC WITH AUTO DIFF [HEME] Timed 03/02/20 07:30 GLUCOSE POC LAB TO COLLECT JPM [POC] QIDACANDBED 03/02/20 11:30 GLUCOSE POC LAB TO COLLECT JPM [POC] QIDACANDBED 03/02/20 16:30 GLUCOSE POC LAB TO COLLECT JPM [POC] QIDACANDBED 03/02/20 21:00 GLUCOSE POC LAB TO COLLECT JPM [POC] QIDACANDBED 03/03/20 07:30 GLUCOSE POC LAB TO COLLECT JPM [POC] QIDACANDBED 03/03/20 11:30 GLUCOSE POC LAB TO COLLECT JPM [POC] QIDACANDBED 03/03/20 16:30 GLUCOSE POC LAB TO COLLECT JPM [POC] QIDACANDBED 03/03/20 21:00 GLUCOSE POC LAB TO COLLECT JPM [POC] QIDACANDBED 03/04/20 07:30 GLUCOSE POC LAB TO COLLECT JPM [POC] QIDACANDBED 03/04/20 11:30 GLUCOSE POC LAB TO COLLECT JPM [POC] QIDACANDBED 03/04/20 16:30 GLUCOSE POC LAB TO COLLECT JPM [POC] QIDACANDBED 03/04/20 21:00 GLUCOSE POC LAB TO COLLECT JPM [POC] QIDACANDBED 03/05/20 07:30 GLUCOSE POC LAB TO COLLECT JPM [POC] QIDACANDBED 03/05/20 11:30 GLUCOSE POC LAB TO COLLECT JPM [POC] QIDACANDBED - Plan Plan:: ASSESSMENT AND PLAN COMPLICATED URINARY TRACT INFECTION WITH SEPSIS-energy level improved and appetite also improved -Urine and blood cultures pending -Saline lock IV -IV ceftriaxone pending culture results COPD-no evidence of acute exacerbation -Supplemental oxygen and nebulizer therapy as needed -Outpatient medications TYPE 2 DIABETES MELLITUS -Hold metformin -4 times daily glucometers -Low-dose sliding scale Humalog URINARY RETENTION-he reports increased frequency and hesitancy with symptom of incomplete emptying -Flomax 0.4 mg p.o. daily MAINTENANCE ISSUES -DVT prophylaxis; Lovenox 40 mg subcu daily -GI prophylaxis; not indicated -Campbell catheter; not indicated -Nutrition; consistent carb diet -Nicotine dependence; not required CODE STATUS-FULL CODE ADMISSION STATUS-patient will be admitted to inpatient status, expect at least a 2 night hospital stay for evaluation and management of problems as outlined above. At the time of this admission I do not reasonably expected evaluation and management of this problem will require more than a 96 hour hospital stay. DISPOSITION-anticipate discharge to home after the hospital stay. PRIMARY CARE PROVIDER-Dr. Childress
[2020-03-01] MEDS: Tamsulosin 0.4 MG Cap.ER PO SCH (10:37)
[2020-03-01] MEDS: Loratadine 10 MG Tab PO SCH (10:44)
[2020-03-01] MEDS ORDERED: cefTRIAXone 1 GM in Sodium Chloride 0.9% 50 ML IV SCH (14:00)
[2020-03-01] MEDS: Enoxaparin 40 MG/0.4 ML Syringe SUBCUT SCH (17:23)
[2020-03-01] MEDS: Acetaminophen 325 MG Tab PO PRN (19:36)
[2020-03-01] MEDS: atorvaSTATin 20 MG Tab PO SCH (21:08)
[2020-03-02] MEDS: Formoterol/Mometasone 100-5 MCG 8.8 GM Inhaler IH SCH ×2 (07:12→21:29)
[2020-03-02] MEDS: Insulin Lispro 100 Unit/ML 3 ML KwikPen SUBCUT SCH ×4 (08:24→21:29)
[2020-03-02] MEDS: Clopidogrel 75 MG Tab PO SCH (08:25)
[2020-03-02] MEDS: Aspirin 81 MG Tab.EC PO SCH (08:25)
[2020-03-02] MEDS: Tamsulosin 0.4 MG Cap.ER PO SCH (08:25)
[2020-03-02] MEDS: Lisinopril 2.5 MG Tab PO SCH (08:25)
[2020-03-02] MEDS: Loratadine 10 MG Tab PO SCH (08:25)
[2020-03-02] MEDS: Metoprolol Succinate 25 MG Tab.ER PO SCH (08:25)
[2020-03-02] MEDS: Spironolactone 25 MG Tab PO SCH (08:26)
[2020-03-02] MEDS ORDERED: Magnesium Citrate Solution 296 ML Bottle PO ONE (10:16)
[2020-03-02] MEDS ORDERED: Sodium Phosphate,Monobasic/Sodium Phosphate,Dibasic Enema 133 ML Bottle RECTAL PRN (10:16)
--- NOTE | 2020-03-02 10:25 | PCM.PN ---
- General Info Date of Service: 03/02/20 Subjective Update: Mr. Phan has been stable over the last 24 hours. There is been further improvement in white blood cell count and he is remained afebrile. Continues to experience some symptoms of dysuria and has been having difficulty with constipation. Functional Status: Reports: Ambulating, Urinating - Review of Systems General: Reports: Weakness. Denies: Fever, Chills Pulmonary: Reports: No Symptoms Cardiovascular: Reports: No Symptoms Gastrointestinal: Reports: Abdominal Pain, Constipation, Decreased Appetite. Denies: Difficulty Swallowing, Nausea, Vomiting Genitourinary: Reports: Dysuria, Frequency. Denies: Pain, Incontinence, Hematuria - Patient Data Vitals - Most Recent: Last Vital Signs Temp 100.0 F 03/02/20 07:00 Pulse 78 03/02/20 08:25 Resp 15 03/02/20 07:00 BP 120/60 03/02/20 08:25 Pulse Ox 95 03/02/20 07:00 Weight - Most Recent: 164 lb I&O - Last 24 Hours: Intake & Output 03/01/20 03/02/20 03/02/20 22:59 06:59 14:59 Intake Total 540 300 Balance 540 300 Lab Results Last 24 Hours: Laboratory Results - last 24 hr 03/01/20 03/01/20 03/01/20 Range/Units 11:30 16:30 20:59 WBC (4.5-11.0) K/uL RBC (4.30-5.90) M/uL Hgb (12.0-15.0) g/dL Hct (40.0-54.0) % MCV (80-98) fL MCH (27-31) pg MCHC (32-36) % Plt Count (150-400) K/uL Neut % (Auto) (36-66) % Lymph % (Auto) (24-44) % [place] % (Auto) (2-6) % Eos % (Auto) (2-4) % Baso % (Auto) (0-1) % Sodium (140-148) mmol/L Potassium (3.6-5.2) mmol/L Chloride (100-108) mmol/L Carbon Dioxide (21-32) mmol/L Anion Gap (5.0-14.0) mmol/L BUN (7-18) mg/dL Creatinine (0.8-1.3) mg/dL Est Cr Clr Drug Dosing mL/min Estimated GFR (MDRD) (>60) Glucose (74-106) mg/dL POC Glucose 211 H 170 H 162 H (74-106) MG/DL Calcium (8.5-10.1) mg/dL 03/02/20 03/02/20 03/02/20 Range/Units 05:55 05:55 07:30 WBC 22.2 H (4.5-11.0) K/uL RBC 3.18 L (4.30-5.90) M/uL Hgb 8.0 L (12.0-15.0) g/dL Hct 26.2 L (40.0-54.0) % MCV 82 (80-98) fL MCH 25 L (27-31) pg MCHC 31 L (32-36) % Plt Count 364 (150-400) K/uL Neut % (Auto) 89 H (36-66) % Lymph % (Auto) 3 L (24-44) % [place] % (Auto) 8 H (2-6) % Eos % (Auto) 1 L (2-4) % Baso % (Auto) 0 (0-1) % Sodium 125 L (140-148) mmol/L Potassium 4.2 (3.6-5.2) mmol/L Chloride 95 L (100-108) mmol/L Carbon Dioxide 22 (21-32) mmol/L Anion Gap 12.2 (5.0-14.0) mmol/L BUN 13 (7-18) mg/dL Creatinine 0.9 (0.8-1.3) mg/dL Est Cr Clr Drug Dosing 65.44 mL/min Estimated GFR (MDRD) > 60 (>60) Glucose 163 H (74-106) mg/dL POC Glucose 160 H (74-106) MG/DL Calcium 8.0 L (8.5-10.1) mg/dL Kristopher Results Last 24 Hours: Microbiology 02/29/20 13:21 Urine Culture - Final Urine, Clean Catch Escherichia Coli 02/29/20 13:45 Aerobic Blood Culture - Preliminary Blood - Arm, Left NO GROWTH AFTER 1 DAY Anaerobic Blood Culture - Preliminary NO GROWTH AFTER 1 DAY 02/29/20 13:55 Aerobic Blood Culture - Preliminary Blood - Arm, Left NO GROWTH AFTER 1 DAY Anaerobic Blood Culture - Preliminary NO GROWTH AFTER 1 DAY Med Orders - Current: Current Medications Acetaminophen (Tylenol) 650 mg PO Q4H PRN PRN Reason: Pain (Mild 1-3)/fever Last Admin: 03/01/20 19:36 Dose: 650 mg Documented by: Albuterol (Ventolin Hfa) 0 gm INH Q4H PRN PRN Reason: Shortness of Breath Last Admin: 03/01/20 02:40 Dose: 2 puff Documented by: Albuterol/Ipratropium (Duoneb 3.0-0.5 Mg/3 Ml) 3 ml NEB QID PRN PRN Reason: Shortness Of Breath/wheezing Aspirin (Halfprin) 81 mg PO DAILY [facility] Last Admin: 03/02/20 08:25 Dose: 81 mg Documented by: Atorvastatin Calcium (Lipitor) 20 mg PO BEDTIME [facility] Last Admin: 03/01/20 21:08 Dose: 20 mg Documented by: Bisacodyl (Dulcolax) 10 mg RECTAL ONETIME ONE Stop: 03/02/20 10:31 Cephalexin (Keflex) 500 mg PO Q8H [facility] Clopidogrel Bisulfate (Plavix) 75 mg PO DAILY [facility] Last Admin: 03/02/20 08:25 Dose: 75 mg Documented by: Dextrose (Glutose 15) 15 gm PO ASDIRECTED PRN PRN Reason: Hypoglycemia Dextrose/Water (Dextrose 50% In Water) 50 ml IV ASDIRECTED PRN PRN Reason: Hypoglycemia Enoxaparin Sodium (Lovenox) 40 mg SUBCUT Q24H [facility] Last Admin: 03/01/20 17:23 Dose: 40 mg Documented by: Insulin Human Lispro (Humalog) 0 unit SUBCUT QIDACANDBED [facility]; Protocol Last Admin: 03/02/20 08:24 Dose: 1 unit Documented by: Lactobacillus Rhamnosus (Culturelle) 1 cap PO BID [facility] Lisinopril (Prinivil) 2.5 mg PO DAILY [facility] Last Admin: 03/02/20 08:25 Dose: 2.5 mg Documented by: Loratadine (Claritin) 10 mg PO DAILY [facility] Last Admin: 03/02/20 08:25 Dose: 10 mg Documented by: Metoprolol Succinate (Toprol Xl) 25 mg PO DAILY [facility] Last Admin: 03/02/20 08:25 Dose: 25 mg Documented by: Mometasone Furoate/Formoterol Fumar (Dulera 100-5 Mcg) 2 puff IH BIDRT [facility] Last Admin: 03/02/20 07:12 Dose: 2 puff Documented by: Ondansetron HCl (Zofran) 4 mg IV Q4H PRN PRN Reason: Nausea/Vomiting Polyethylene Glycol (Miralax) 17 gm PO DAILY PRN PRN Reason: Constipation Sodium Biphosphate/Sodium Phosphate (Fleet Enema) 133 ml RECTAL ONETIME PRN PRN Reason: Constipation Sodium Chloride (Saline Flush) 10 ml FLUSH ASDIRECTED PRN PRN Reason: Keep Vein Open Spironolactone (Aldactone) 25 mg PO DAILY [facility] Last Admin: 03/02/20 08:26 Dose: 25 mg Documented by: Tamsulosin HCl (Flomax) 0.4 mg PO DAILY [facility] Last Admin: 03/02/20 08:25 Dose: 0.4 mg Documented by: Discontinued Medications Sodium Chloride (Normal Saline) 1,000 mls @ 1,000 mls/hr IV .BOLUS ONE Stop: 02/29/20 13:02 Last Admin: 02/29/20 12:17 Dose: 1,000 mls/hr Documented by: Sodium Chloride (Normal Saline) 1,000 mls @ 150 mls/hr IV ASDIRECTED [facility] Last Admin: 02/29/20 13:24 Dose: 150 mls/hr Documented by: Ceftriaxone Sodium 1 gm/ (Sodium Chloride) 50 mls @ 100 mls/hr IV ONETIME ONE Stop: 02/29/20 14:04 Last Admin: 02/29/20 13:52 Dose: 100 mls/hr Documented by: Sodium Chloride (Normal Saline) 1,000 mls @ 125 mls/hr IV ASDIRECTED [facility] Last Admin: 03/01/20 02:38 Dose: 125 mls/hr Documented by: Ceftriaxone Sodium 1 gm/ (Sodium Chloride) 50 mls @ 100 mls/hr IV Q24H [facility] Last Admin: 03/01/20 13:08 Dose: 100 mls/hr Documented by: Lisinopril (Prinivil) 2.5 mg PO DAILY [facility] Magnesium Citrate (Citrate Of Magnesia) 150 ml PO ONETIME ONE Stop: 03/02/20 10:17 Non-Formulary Medication (Amlodipine Besylate [Amlodipine Besylate]) 10 mg PO DAILY [facility] Non-Formulary Medication (Fluticasone/Salmeterol [Advair 500-50]) 1 puff IH BID [facility] Non-Formulary Medication (Triamterene/Hydrochlorothiazid [Maxzide 75 Mg-50 Mg Tablet]) 1 tab PO DAILY [facility] Sodium Chloride (Saline Flush) 10 ml FLUSH ASDIRECTED PRN PRN Reason: Keep Vein Open Last Admin: 02/29/20 12:03 Dose: 10 ml Documented by: - Exam Quality Assessment: DVT Prophylaxis General: Alert, Oriented, Cooperative, Mild Distress Lungs: Normal Respiratory Effort, Decreased Breath Sounds, Wheezing. No: Rales, Rhonchi Cardiovascular: Regular Rate, Regular Rhythm, No Murmurs GI/Abdominal Exam: Soft, No Organomegaly, Distended, Tender. No: Guarding, Rigid, Rebound Back Exam: Normal Inspection, Full Range of Motion Sepsis Event Note - Evaluation Sepsis Screening Result: No Definite Risk - Focused Exam Vital Signs: Vital Signs Temp Pulse Pulse Resp BP BP Pulse Ox 03/02/20 08:25 78 120/60 03/02/20 07:00 100.0 F 65 15 136/60 95 03/02/20 03:00 99.8 F 66 16 120/86 97 03/01/20 22:51 98.4 F 83 16 105/48 L 97 - Problem List Review Problem List Initiated/Reviewed/Updated: Yes - My Orders Last 24 Hours: My Active Orders 03/01/20 09:45 Tamsulosin [Flomax] 0.4 mg PO DAILY 03/01/20 10:01 Convert IV to Saline Lock [OM.PC] Routine 03/01/20 14:00 cefTRIAXone [Rocephin] 1 gm Sodium Chloride 0.9% [Normal Saline] 50 ml IV Q24H 03/02/20 10:16 bisacodyL [Dulcolax] 10 mg RECTAL ONETIME ONE 03/02/20 10:16 Na Phos,M-B/Na Phos,DI-B [Fleet Enema] 133 ml RECTAL ONETIME PRN 03/02/20 10:30 Lactobacillus Rhamnosus GG [Culturelle] 1 cap PO BID cephALEXin [Keflex] 500 mg PO Q8H 03/02/20 11:30 GLUCOSE POC LAB TO COLLECT JPM [POC] QIDACANDBED 03/02/20 16:30 GLUCOSE POC LAB TO COLLECT JPM [POC] QIDACANDBED 03/02/20 21:00 GLUCOSE POC LAB TO COLLECT JPM [POC] QIDACANDBED 03/03/20 05:00 BASIC METABOLIC PANEL,BMP [CHEM] Timed CBC WITH AUTO DIFF [HEME] Timed 03/03/20 07:30 GLUCOSE POC LAB TO COLLECT JPM [POC] QIDACANDBED 03/03/20 11:30 GLUCOSE POC LAB TO COLLECT JPM [POC] QIDACANDBED 03/03/20 16:30 GLUCOSE POC LAB TO COLLECT JPM [POC] QIDACANDBED 03/03/20 21:00 GLUCOSE POC LAB TO COLLECT JPM [POC] QIDACANDBED 03/04/20 07:30 GLUCOSE POC LAB TO COLLECT JPM [POC] QIDACANDBED 03/04/20 11:30 GLUCOSE POC LAB TO COLLECT JPM [POC] QIDACANDBED 03/04/20 16:30 GLUCOSE POC LAB TO COLLECT JPM [POC] QIDACANDBED 03/04/20 21:00 GLUCOSE POC LAB TO COLLECT JPM [POC] QIDACANDBED 03/05/20 07:30 GLUCOSE POC LAB TO COLLECT JPM [POC] QIDACANDBED 03/05/20 11:30 GLUCOSE POC LAB TO COLLECT JPM [POC] QIDACANDBED - Plan Plan:: ASSESSMENT AND PLAN COMPLICATED URINARY TRACT INFECTION WITH SEPSIS-sepsis has resolved, continues to experience some symptoms of dysuria. Urine culture growing pansensitive E. coli, blood cultures negative -Saline lock IV -Discontinue ceftriaxone -Cephalexin 500 mg p.o. every 8 hours COPD-no evidence of acute exacerbation -Supplemental oxygen and nebulizer therapy as needed -Outpatient medications TYPE 2 DIABETES MELLITUS -Hold metformin -4 times daily glucometers -Low-dose sliding scale Humalog URINARY RETENTION-he reports increased frequency and hesitancy with symptom of incomplete emptying -Flomax 0.4 mg p.o. daily CONSTIPATION -Magnesium citrate 150 mL p.o. now -Dulcolax suppository now -Fleet enema if no result from suppository MAINTENANCE ISSUES -DVT prophylaxis; Lovenox 40 mg subcu daily -GI prophylaxis; not indicated -Campbell catheter; not indicated -Nutrition; consistent carb diet -Nicotine dependence; not required CODE STATUS-FULL CODE ADMISSION STATUS-patient will be admitted to inpatient status, expect at least a 2 night hospital stay for evaluation and management of problems as outlined above. At the time of this admission I do not reasonably expected evaluation and management of this problem will require more than a 96 hour hospital stay. DISPOSITION-anticipate discharge to home after the hospital stay. PRIMARY CARE PROVIDER-Dr. Childress
[2020-03-02] MEDS ORDERED: Bisacodyl 10 MG Supp RECTAL ONE (10:30)
[2020-03-02] MEDS: Lactobacillus Rhamnosus GG (Probiotic) Cap PO SCH ×2 (11:41→21:29)
[2020-03-02] MEDS: Cephalexin 250 MG Cap PO SCH ×2 (13:07→21:29)
[2020-03-02] MEDS: Acetaminophen 325 MG Tab PO PRN (15:20)
[2020-03-02] MEDS: Enoxaparin 40 MG/0.4 ML Syringe SUBCUT SCH (17:01)
[2020-03-02] MEDS: atorvaSTATin 20 MG Tab PO SCH (21:29)
[2020-03-03] MEDS: Cephalexin 250 MG Cap PO SCH ×3 (05:56→21:13)
[2020-03-03] MEDS: Formoterol/Mometasone 100-5 MCG 8.8 GM Inhaler IH SCH ×2 (07:09→21:14)
[2020-03-03] MEDS: Insulin Lispro 100 Unit/ML 3 ML KwikPen SUBCUT SCH ×4 (07:48→21:12)
[2020-03-03] MEDS: Lactobacillus Rhamnosus GG (Probiotic) Cap PO SCH ×2 (08:22→21:13)
[2020-03-03] MEDS: Loratadine 10 MG Tab PO SCH (08:23)
[2020-03-03] MEDS: Clopidogrel 75 MG Tab PO SCH (08:23)
[2020-03-03] MEDS: Lisinopril 2.5 MG Tab PO SCH (08:23)
[2020-03-03] MEDS: Aspirin 81 MG Tab.EC PO SCH (08:23)
[2020-03-03] MEDS: Tamsulosin 0.4 MG Cap.ER PO SCH (08:23)
[2020-03-03] MEDS: Spironolactone 25 MG Tab PO SCH (08:23)
[2020-03-03] MEDS: Metoprolol Succinate 25 MG Tab.ER PO SCH (08:25)
[2020-03-03] MEDS ORDERED: Magnesium Citrate Solution 296 ML Bottle PO ONE (09:31)
--- NOTE | 2020-03-03 09:45 | PCM.PN ---
- General Info Date of Service: 03/03/20 Subjective Update: Mr. Phan continues to experience weakness and fatigue. Appetite seems to be somewhat better and he was able to have a bowel movement this morning. Vital signs have been good and he has remained afebrile. White blood cell count improving but not yet within normal range. Functional Status: Reports: Tolerating Diet, Ambulating, Urinating - Review of Systems General: Reports: Weakness, Fatigue. Denies: Fever, Chills Pulmonary: Reports: No Symptoms Cardiovascular: Reports: No Symptoms Gastrointestinal: Reports: Constipation. Denies: Abdominal Pain, Nausea, Vomiting Genitourinary: Reports: No Symptoms - Patient Data Vitals - Most Recent: Last Vital Signs Temp 95.2 F L 03/03/20 08:19 Pulse 76 03/03/20 08:25 Resp 16 03/03/20 08:19 BP 111/52 L 03/03/20 08:25 Pulse Ox 93 L 03/03/20 08:19 Weight - Most Recent: 165 lb 12.8 oz I&O - Last 24 Hours: Intake & Output 03/02/20 03/03/20 03/03/20 22:59 06:59 14:59 Intake Total 940 1155 300 Output Total 375 Balance 940 780 300 Lab Results Last 24 Hours: Laboratory Results - last 24 hr 03/02/20 03/02/20 03/02/20 Range/Units 11:26 16:30 20:57 WBC (4.5-11.0) K/uL RBC (4.30-5.90) M/uL Hgb (12.0-15.0) g/dL Hct (40.0-54.0) % MCV (80-98) fL MCH (27-31) pg MCHC (32-36) % Plt Count (150-400) K/uL Neut % (Auto) (36-66) % Lymph % (Auto) (24-44) % [place] % (Auto) (2-6) % Eos % (Auto) (2-4) % Baso % (Auto) (0-1) % Sodium (140-148) mmol/L Potassium (3.6-5.2) mmol/L Chloride (100-108) mmol/L Carbon Dioxide (21-32) mmol/L Anion Gap (5.0-14.0) mmol/L BUN (7-18) mg/dL Creatinine (0.8-1.3) mg/dL Est Cr Clr Drug Dosing mL/min Estimated GFR (MDRD) (>60) Glucose (74-106) mg/dL POC Glucose 183 H 147 H 157 H (74-106) MG/DL Calcium (8.5-10.1) mg/dL 03/03/20 03/03/20 03/03/20 Range/Units 06:01 06:01 07:30 WBC 16.0 H (4.5-11.0) K/uL RBC 3.48 L (4.30-5.90) M/uL Hgb 9.0 L (12.0-15.0) g/dL Hct 28.2 L (40.0-54.0) % MCV 81 (80-98) fL MCH 26 L (27-31) pg MCHC 32 (32-36) % Plt Count 394 (150-400) K/uL Neut % (Auto) 85 H (36-66) % Lymph % (Auto) 4 L (24-44) % [place] % (Auto) 9 H (2-6) % Eos % (Auto) 1 L (2-4) % Baso % (Auto) 0 (0-1) % Sodium 122 L (140-148) mmol/L Potassium 5.0 (3.6-5.2) mmol/L Chloride 91 L (100-108) mmol/L Carbon Dioxide 25 (21-32) mmol/L Anion Gap 11.0 (5.0-14.0) mmol/L BUN 12 (7-18) mg/dL Creatinine 0.8 (0.8-1.3) mg/dL Est Cr Clr Drug Dosing 73.63 mL/min Estimated GFR (MDRD) > 60 (>60) Glucose 177 H (74-106) mg/dL POC Glucose 174 H (74-106) MG/DL Calcium 8.1 L (8.5-10.1) mg/dL Kristopher Results Last 24 Hours: Microbiology 02/29/20 13:55 Aerobic Blood Culture - Preliminary Blood - Arm, Left NO GROWTH AFTER 2 DAYS Anaerobic Blood Culture - Preliminary NO GROWTH AFTER 2 DAYS 02/29/20 13:45 Aerobic Blood Culture - Preliminary Blood - Arm, Left NO GROWTH AFTER 2 DAYS Anaerobic Blood Culture - Preliminary NO GROWTH AFTER 2 DAYS 02/29/20 13:21 Urine Culture - Final Urine, Clean Catch Escherichia Coli Med Orders - Current: Current Medications Acetaminophen (Tylenol) 650 mg PO Q4H PRN PRN Reason: Pain (Mild 1-3)/fever Last Admin: 03/02/20 15:20 Dose: 650 mg Documented by: Albuterol (Ventolin Hfa) 0 gm INH Q4H PRN PRN Reason: Shortness of Breath Last Admin: 03/01/20 02:40 Dose: 2 puff Documented by: Albuterol/Ipratropium (Duoneb 3.0-0.5 Mg/3 Ml) 3 ml NEB QID PRN PRN Reason: Shortness Of Breath/wheezing Aspirin (Halfprin) 81 mg PO DAILY [facility] Last Admin: 03/03/20 08:23 Dose: 81 mg Documented by: Atorvastatin Calcium (Lipitor) 20 mg PO BEDTIME [facility] Last Admin: 03/02/20 21:29 Dose: 20 mg Documented by: Cephalexin (Keflex) 500 mg PO Q8H [facility] Last Admin: 03/03/20 05:56 Dose: 500 mg Documented by: Clopidogrel Bisulfate (Plavix) 75 mg PO DAILY [facility] Last Admin: 03/03/20 08:23 Dose: 75 mg Documented by: Dextrose (Glutose 15) 15 gm PO ASDIRECTED PRN PRN Reason: Hypoglycemia Dextrose/Water (Dextrose 50% In Water) 50 ml IV ASDIRECTED PRN PRN Reason: Hypoglycemia Enoxaparin Sodium (Lovenox) 40 mg SUBCUT Q24H [facility] Last Admin: 03/02/20 17:01 Dose: 40 mg Documented by: Insulin Human Lispro (Humalog) 0 unit SUBCUT QIDACANDBED [facility]; Protocol Last Admin: 03/03/20 07:48 Dose: 1 unit Documented by: Lactobacillus Rhamnosus (Culturelle) 1 cap PO BID [facility] Last Admin: 03/03/20 08:22 Dose: 1 cap Documented by: Lisinopril (Prinivil) 2.5 mg PO DAILY [facility] Last Admin: 03/03/20 08:23 Dose: 2.5 mg Documented by: Loratadine (Claritin) 10 mg PO DAILY [facility] Last Admin: 03/03/20 08:23 Dose: 10 mg Documented by: Metoprolol Succinate (Toprol Xl) 25 mg PO DAILY [facility] Last Admin: 03/03/20 08:25 Dose: 25 mg Documented by: Mometasone Furoate/Formoterol Fumar (Dulera 100-5 Mcg) 2 puff IH BIDRT [facility] Last Admin: 03/03/20 07:09 Dose: 2 puff Documented by: Ondansetron HCl (Zofran) 4 mg IV Q4H PRN PRN Reason: Nausea/Vomiting Polyethylene Glycol (Miralax) 17 gm PO DAILY PRN PRN Reason: Constipation Sodium Biphosphate/Sodium Phosphate (Fleet Enema) 133 ml RECTAL ONETIME PRN PRN Reason: Constipation Sodium Chloride (Saline Flush) 10 ml FLUSH ASDIRECTED PRN PRN Reason: Keep Vein Open Spironolactone (Aldactone) 25 mg PO DAILY [facility] Last Admin: 03/03/20 08:23 Dose: 25 mg Documented by: Tamsulosin HCl (Flomax) 0.4 mg PO DAILY [facility] Last Admin: 03/03/20 08:23 Dose: 0.4 mg Documented by: Discontinued Medications Bisacodyl (Dulcolax) 10 mg RECTAL ONETIME ONE Stop: 03/02/20 10:31 Last Admin: 03/02/20 10:36 Dose: 10 mg Documented by: Sodium Chloride (Normal Saline) 1,000 mls @ 1,000 mls/hr IV .BOLUS ONE Stop: 02/29/20 13:02 Last Admin: 02/29/20 12:17 Dose: 1,000 mls/hr Documented by: Sodium Chloride (Normal Saline) 1,000 mls @ 150 mls/hr IV ASDIRECTED [facility] Last Admin: 02/29/20 13:24 Dose: 150 mls/hr Documented by: Ceftriaxone Sodium 1 gm/ (Sodium Chloride) 50 mls @ 100 mls/hr IV ONETIME ONE Stop: 02/29/20 14:04 Last Admin: 02/29/20 13:52 Dose: 100 mls/hr Documented by: Sodium Chloride (Normal Saline) 1,000 mls @ 125 mls/hr IV ASDIRECTED [facility] Last Admin: 03/01/20 02:38 Dose: 125 mls/hr Documented by: Ceftriaxone Sodium 1 gm/ (Sodium Chloride) 50 mls @ 100 mls/hr IV Q24H [facility] Last Admin: 03/01/20 13:08 Dose: 100 mls/hr Documented by: Lisinopril (Prinivil) 2.5 mg PO DAILY [facility] Magnesium Citrate (Citrate Of Magnesia) 150 ml PO ONETIME ONE Stop: 03/02/20 10:17 Last Admin: 03/02/20 10:36 Dose: 150 ml Documented by: Magnesium Citrate (Citrate Of Magnesia) 150 ml PO ONETIME ONE Stop: 03/03/20 09:32 Non-Formulary Medication (Amlodipine Besylate [Amlodipine Besylate]) 10 mg PO DAILY [facility] Non-Formulary Medication (Fluticasone/Salmeterol [Advair 500-50]) 1 puff IH BID [facility] Non-Formulary Medication (Triamterene/Hydrochlorothiazid [Maxzide 75 Mg-50 Mg Tablet]) 1 tab PO DAILY [facility] Sodium Chloride (Saline Flush) 10 ml FLUSH ASDIRECTED PRN PRN Reason: Keep Vein Open Last Admin: 02/29/20 12:03 Dose: 10 ml Documented by: - Exam Quality Assessment: DVT Prophylaxis General: Alert, Oriented, Cooperative, Mild Distress Lungs: Normal Respiratory Effort, Wheezing. No: Rales, Rhonchi Cardiovascular: Regular Rate, Regular Rhythm, No Murmurs GI/Abdominal Exam: Soft, Non-Tender, No Organomegaly, No Distention Extremities: Non-Tender, No Pedal Edema Sepsis Event Note - Evaluation Sepsis Screening Result: No Definite Risk - Focused Exam Vital Signs: Vital Signs Temp Pulse Pulse Resp BP BP Pulse Ox 03/03/20 08:25 76 111/52 L 03/03/20 08:23 111/52 L 03/03/20 08:19 95.2 F L 76 16 111/52 L 93 L 03/03/20 03:00 99.3 F 88 18 152/57 H 94 L 03/02/20 22:55 99.0 F 81 16 113/53 L 93 L - Problem List Review Problem List Initiated/Reviewed/Updated: Yes - My Orders Last 24 Hours: My Active Orders 03/02/20 10:16 Na Phos,M-B/Na Phos,DI-B [Fleet Enema] 133 ml RECTAL ONETIME PRN 03/02/20 10:30 Lactobacillus Rhamnosus GG [Culturelle] 1 cap PO BID 03/02/20 14:00 cephALEXin [Keflex] 500 mg PO Q8H 03/03/20 11:30 GLUCOSE POC LAB TO COLLECT JPM [POC] QIDACANDBED 03/03/20 16:30 GLUCOSE POC LAB TO COLLECT JPM [POC] QIDACANDBED 03/03/20 21:00 GLUCOSE POC LAB TO COLLECT JPM [POC] QIDACANDBED 03/04/20 05:00 BASIC METABOLIC PANEL,BMP [CHEM] Timed CBC WITH AUTO DIFF [HEME] Timed 03/04/20 07:30 GLUCOSE POC LAB TO COLLECT JPM [POC] QIDACANDBED 03/04/20 11:30 GLUCOSE POC LAB TO COLLECT JPM [POC] QIDACANDBED 03/04/20 16:30 GLUCOSE POC LAB TO COLLECT JPM [POC] QIDACANDBED 03/04/20 21:00 GLUCOSE POC LAB TO COLLECT JPM [POC] QIDACANDBED 03/05/20 07:30 GLUCOSE POC LAB TO COLLECT JPM [POC] QIDACANDBED 03/05/20 11:30 GLUCOSE POC LAB TO COLLECT JPM [POC] QIDACANDBED - Plan Plan:: ASSESSMENT AND PLAN COMPLICATED URINARY TRACT INFECTION WITH SEPSIS-sepsis and dysuria have resolved -Saline lock IV -Cephalexin 500 mg p.o. every 8 hours COPD-no evidence of acute exacerbation -Supplemental oxygen and nebulizer therapy as needed -Outpatient medications TYPE 2 DIABETES MELLITUS -Hold metformin -4 times daily glucometers -Low-dose sliding scale Humalog URINARY RETENTION-he reports increased frequency and hesitancy with symptom of incomplete emptying -Flomax 0.4 mg p.o. daily CONSTIPATION-he did have a bowel movement this morning but continues to feel like he has more stool to pass -Magnesium citrate 150 mL p.o. now HYPONATREMIA-present on admission, improved with hydration. Now sodium level is back down to 122. 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 At the time of this admission I do not reasonably expected evaluation and management of this problem will require more than a 96 hour hospital stay. DISPOSITION-anticipate discharge to home after the hospital stay. PRIMARY CARE PROVIDER-Dr. Childress
[2020-03-03] MEDS: Albuterol 8 GM Inhaler INH PRN ×2 (11:53→19:16)
[2020-03-03] MEDS: Enoxaparin 40 MG/0.4 ML Syringe SUBCUT SCH (17:43)
[2020-03-03] MEDS: atorvaSTATin 20 MG Tab PO SCH (21:14)
[2020-03-04] MEDS: Cephalexin 250 MG Cap PO SCH ×3 (06:00→21:33)
[2020-03-04] MEDS: Formoterol/Mometasone 100-5 MCG 8.8 GM Inhaler IH SCH ×2 (07:16→21:34)
[2020-03-04] MEDS: Lisinopril 2.5 MG Tab PO SCH (08:34)
[2020-03-04] MEDS: Tamsulosin 0.4 MG Cap.ER PO SCH (08:38)
[2020-03-04] MEDS: Aspirin 81 MG Tab.EC PO SCH (08:38)
[2020-03-04] MEDS: Clopidogrel 75 MG Tab PO SCH (08:39)
[2020-03-04] MEDS: Lactobacillus Rhamnosus GG (Probiotic) Cap PO SCH ×2 (08:39→21:34)
[2020-03-04] MEDS: Metoprolol Succinate 25 MG Tab.ER PO SCH (08:40)
[2020-03-04] MEDS: Spironolactone 25 MG Tab PO SCH (08:41)
[2020-03-04] MEDS: Loratadine 10 MG Tab PO SCH (08:42)
[2020-03-04] MEDS: Insulin Lispro 100 Unit/ML 3 ML KwikPen SUBCUT SCH ×4 (08:43→21:30)
--- NOTE | 2020-03-04 10:54 | PCM.PN ---
- General Info Date of Service: 03/04/20 Subjective Update: No acute events overnight. He remains weak but is slowly improving. Sodium is still quite low with only minimal improvement since yesterday. No fevers. No difficulty with urinary retention following treatment for the infection and the initiation of tamsulosin. He still feels off and not back to his usual self but thinks he is getting close. White blood cell count still improving but not quite back to normal. Functional Status: Reports: Pain Controlled - Review of Systems General: Reports: Weakness. Denies: Fever Pulmonary: Denies: Shortness of Breath - Patient Data Vitals - Most Recent: Last Vital Signs Temp 36.9 C 03/04/20 08:36 Pulse 80 03/04/20 08:40 Resp 18 03/04/20 08:36 BP 122/57 L 03/04/20 08:40 Pulse Ox 94 L 03/04/20 08:36 Weight - Most Recent: 75.115 kg I&O - Last 24 Hours: Intake & Output 03/03/20 03/04/20 03/04/20 22:59 06:59 14:59 Intake Total 955 750 120 Balance 955 750 120 Lab Results Last 24 Hours: Laboratory Results - last 24 hr 03/03/20 03/03/20 03/03/20 Range/Units 11:35 16:15 21:00 WBC (4.5-11.0) K/uL RBC (4.30-5.90) M/uL Hgb (12.0-15.0) g/dL Hct (40.0-54.0) % MCV (80-98) fL MCH (27-31) pg MCHC (32-36) % Plt Count (150-400) K/uL Neut % (Auto) (36-66) % Lymph % (Auto) (24-44) % Twiggs % (Auto) (2-6) % Eos % (Auto) (2-4) % Baso % (Auto) (0-1) % Sodium (140-148) mmol/L Potassium (3.6-5.2) mmol/L Chloride (100-108) mmol/L Carbon Dioxide (21-32) mmol/L Anion Gap (5.0-14.0) mmol/L BUN (7-18) mg/dL Creatinine (0.8-1.3) mg/dL Est Cr Clr Drug Dosing mL/min Estimated GFR (MDRD) (>60) Glucose (74-106) mg/dL POC Glucose 235 H 152 H 214 H (74-106) MG/DL Calcium (8.5-10.1) mg/dL 03/04/20 03/04/20 03/04/20 Range/Units 04:00 04:00 07:20 WBC 14.2 H (4.5-11.0) K/uL RBC 3.33 L (4.30-5.90) M/uL Hgb 8.5 L (12.0-15.0) g/dL Hct 27.3 L (40.0-54.0) % MCV 82 (80-98) fL MCH 26 L (27-31) pg MCHC 31 L (32-36) % Plt Count 415 H (150-400) K/uL Neut % (Auto) 80 H (36-66) % Lymph % (Auto) 7 L (24-44) % Twiggs % (Auto) 12 H (2-6) % Eos % (Auto) 2 (2-4) % Baso % (Auto) 0 (0-1) % Sodium 123 L (140-148) mmol/L Potassium 5.3 H (3.6-5.2) mmol/L Chloride 91 L (100-108) mmol/L Carbon Dioxide 30 (21-32) mmol/L Anion Gap 7.3 (5.0-14.0) mmol/L BUN 9 (7-18) mg/dL Creatinine 0.9 (0.8-1.3) mg/dL Est Cr Clr Drug Dosing 65.44 mL/min Estimated GFR (MDRD) > 60 (>60) Glucose 146 H (74-106) mg/dL POC Glucose 205 H (74-106) MG/DL Calcium 8.1 L (8.5-10.1) mg/dL Kristopher Results Last 24 Hours: Microbiology 02/29/20 13:45 Aerobic Blood Culture - Preliminary Blood - Arm, Left NO GROWTH AFTER 3 DAYS Anaerobic Blood Culture - Preliminary NO GROWTH AFTER 3 DAYS 02/29/20 13:55 Aerobic Blood Culture - Preliminary Blood - Arm, Left NO GROWTH AFTER 3 DAYS Anaerobic Blood Culture - Preliminary NO GROWTH AFTER 3 DAYS Med Orders - Current: Current Medications Acetaminophen (Tylenol) 650 mg PO Q4H PRN PRN Reason: Pain (Mild 1-3)/fever Last Admin: 03/02/20 15:20 Dose: 650 mg Documented by: Albuterol (Ventolin Hfa) 0 gm INH Q4H PRN PRN Reason: Shortness of Breath Last Admin: 03/03/20 19:16 Dose: 2 puff Documented by: Albuterol/Ipratropium (Duoneb 3.0-0.5 Mg/3 Ml) 3 ml NEB QID PRN PRN Reason: Shortness Of Breath/wheezing Aspirin (Halfprin) 81 mg PO DAILY [facility] Last Admin: 03/04/20 08:38 Dose: 81 mg Documented by: Atorvastatin Calcium (Lipitor) 20 mg PO BEDTIME [facility] Last Admin: 03/03/20 21:14 Dose: 20 mg Documented by: Cephalexin (Keflex) 500 mg PO Q8H [facility] Last Admin: 03/04/20 06:00 Dose: 500 mg Documented by: Clopidogrel Bisulfate (Plavix) 75 mg PO DAILY [facility] Last Admin: 03/04/20 08:39 Dose: 75 mg Documented by: Dextrose (Glutose 15) 15 gm PO ASDIRECTED PRN PRN Reason: Hypoglycemia Dextrose/Water (Dextrose 50% In Water) 50 ml IV ASDIRECTED PRN PRN Reason: Hypoglycemia Enoxaparin Sodium (Lovenox) 40 mg SUBCUT Q24H [facility] Last Admin: 03/03/20 17:43 Dose: 40 mg Documented by: Insulin Human Lispro (Humalog) 0 unit SUBCUT QIDACANDBED [facility]; Protocol Last Admin: 03/04/20 08:43 Dose: 2 unit Documented by: Lactobacillus Rhamnosus (Culturelle) 1 cap PO BID [facility] Last Admin: 03/04/20 08:39 Dose: 1 cap Documented by: Lisinopril (Prinivil) 2.5 mg PO DAILY [facility] Last Admin: 03/04/20 08:34 Dose: 2.5 mg Documented by: Loratadine (Claritin) 10 mg PO DAILY [facility] Last Admin: 03/04/20 08:42 Dose: 10 mg Documented by: Metoprolol Succinate (Toprol Xl) 25 mg PO DAILY [facility] Last Admin: 03/04/20 08:40 Dose: 25 mg Documented by: Mometasone Furoate/Formoterol Fumar (Dulera 100-5 Mcg) 2 puff IH BIDRT [facility] Last Admin: 03/04/20 07:16 Dose: 2 puff Documented by: Ondansetron HCl (Zofran) 4 mg IV Q4H PRN PRN Reason: Nausea/Vomiting Polyethylene Glycol (Miralax) 17 gm PO DAILY PRN PRN Reason: Constipation Sodium Biphosphate/Sodium Phosphate (Fleet Enema) 133 ml RECTAL ONETIME PRN PRN Reason: Constipation Sodium Chloride (Saline Flush) 10 ml FLUSH ASDIRECTED PRN PRN Reason: Keep Vein Open Spironolactone (Aldactone) 25 mg PO DAILY [facility] Last Admin: 03/04/20 08:41 Dose: 25 mg Documented by: Tamsulosin HCl (Flomax) 0.4 mg PO DAILY [facility] Last Admin: 03/04/20 08:38 Dose: 0.4 mg Documented by: Discontinued Medications Bisacodyl (Dulcolax) 10 mg RECTAL ONETIME ONE Stop: 03/02/20 10:31 Last Admin: 03/02/20 10:36 Dose: 10 mg Documented by: Sodium Chloride (Normal Saline) 1,000 mls @ 1,000 mls/hr IV .BOLUS ONE Stop: 02/29/20 13:02 Last Admin: 02/29/20 12:17 Dose: 1,000 mls/hr Documented by: Sodium Chloride (Normal Saline) 1,000 mls @ 150 mls/hr IV ASDIRECTED [facility] Last Admin: 02/29/20 13:24 Dose: 150 mls/hr Documented by: Ceftriaxone Sodium 1 gm/ (Sodium Chloride) 50 mls @ 100 mls/hr IV ONETIME ONE Stop: 02/29/20 14:04 Last Admin: 02/29/20 13:52 Dose: 100 mls/hr Documented by: Sodium Chloride (Normal Saline) 1,000 mls @ 125 mls/hr IV ASDIRECTED [facility] Last Admin: 03/01/20 02:38 Dose: 125 mls/hr Documented by: Ceftriaxone Sodium 1 gm/ (Sodium Chloride) 50 mls @ 100 mls/hr IV Q24H [facility] Last Admin: 03/01/20 13:08 Dose: 100 mls/hr Documented by: Lisinopril (Prinivil) 2.5 mg PO DAILY [facility] Magnesium Citrate (Citrate Of Magnesia) 150 ml PO ONETIME ONE Stop: 03/02/20 10:17 Last Admin: 03/02/20 10:36 Dose: 150 ml Documented by: Magnesium Citrate (Citrate Of Magnesia) 150 ml PO ONETIME ONE Stop: 03/03/20 09:32 Last Admin: 03/03/20 09:42 Dose: 150 ml Documented by: Non-Formulary Medication (Amlodipine Besylate [Amlodipine Besylate]) 10 mg PO DAILY [facility] Non-Formulary Medication (Fluticasone/Salmeterol [Advair 500-50]) 1 puff IH BID [facility] Non-Formulary Medication (Triamterene/Hydrochlorothiazid [Maxzide 75 Mg-50 Mg Tablet]) 1 tab PO DAILY [facility] Sodium Chloride (Saline Flush) 10 ml FLUSH ASDIRECTED PRN PRN Reason: Keep Vein Open Last Admin: 02/29/20 12:03 Dose: 10 ml Documented by: - Exam Quality Assessment: No: Supplemental Oxygen General: Alert, Oriented, Cooperative, No Acute Distress Lungs: Normal Respiratory Effort Cardiovascular: Regular Rate, Regular Rhythm GI/Abdominal Exam: Soft, No Distention Extremities: No Pedal Edema Skin: Warm, Dry Psy/Mental Status: Alert, Normal Affect Sepsis Event Note - Evaluation Sepsis Screening Result: No Definite Risk - Focused Exam Vital Signs: Vital Signs Temp Pulse Pulse Resp BP BP Pulse Ox 03/04/20 08:40 80 122/57 L 03/04/20 08:36 36.9 C 80 18 122/57 L 94 L 03/04/20 08:34 122/57 L 03/04/20 04:29 35.9 C L 90 16 153/86 H 96 - Problem List Review Problem List Initiated/Reviewed/Updated: Yes - My Orders Last 24 Hours: My Active Orders 03/04/20 10:50 CXR [Chest 2V] [CR] Routine 03/05/20 05:00 BASIC METABOLIC PANEL,BMP [CHEM] Timed CBC W/O DIFF,HEMOGRAM [HEME] Timed (1) - Plan Plan:: ASSESSMENT AND PLAN COMPLICATED URINARY TRACT INFECTION WITH SEPSIS-sepsis and dysuria have resolved. White blood cell count trending down but not quite normalized. -Saline lock IV -Cephalexin 500 mg p.o. every 8 hours HYPONATREMIA-Sodium level stable but not dramatically improved. 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 He does have a smoking history smoking to get a chest x-ray to rule out occult malignancy. Kidney function is normal. No concerning medications. -Chest x-ray -Repeat labs in the morning Anemia-present on admission but level has dropped slightly. No evidence for blood loss. I suspect this is more of a chronic issue but I am not quite sure what his chronic disease would be. There is some concern that it could be related to malignancy with SIADH present but no obvious malignancy apparent at this time. -Iron and ferritin levels -Chest x-ray as above -He may need outpatient imaging or colonoscopy COPD-no evidence of acute exacerbation -Supplemental oxygen and nebulizer therapy as needed -Outpatient medications TYPE 2 DIABETES MELLITUS-sugars have been acceptable. -Restart metformin tomorrow morning -4 times daily glucometers -Low-dose sliding scale Humalog ACUTE URINARY RETENTION-symptoms have improved with treatment for infection and initiation of the tamsulosin. -Tamsulosin CONSTIPATION-resolved with bowel stimulation. MAINTENANCE ISSUES -DVT prophylaxis; enoxaparin -GI prophylaxis; not indicated -Campbell catheter; not indicated -Nutrition; consistent carb diet DISPOSITION-anticipate discharge to home after the hospital stay. Bernard Malave MD
--- NOTE | 2020-03-04 11:35 | CR ---
CHEST: 2 view CLINICAL HISTORY:Fever COMPARISON:2018 FINDINGS: The heart size, pulmonary vascularity and hilar structures are normal. No infiltrate effusion or pneumothorax is seen. There is chronic minimal blunting of the right costophrenic angle. IMPRESSION: No acute cardiopulmonary process.
[2020-03-04] MEDS: metFORMIN 500 MG Tab PO SCH (17:19)
[2020-03-04] MEDS: Enoxaparin 40 MG/0.4 ML Syringe SUBCUT SCH (17:22)
[2020-03-04] MEDS: Albuterol 8 GM Inhaler INH PRN (21:33)
[2020-03-04] MEDS: atorvaSTATin 20 MG Tab PO SCH (21:34)
[2020-03-05] MEDS: Cephalexin 250 MG Cap PO SCH (06:07)
[2020-03-05] MEDS ORDERED: metFORMIN 500 MG Tab PO SCH (07:30)
[2020-03-05] MEDS: Formoterol/Mometasone 100-5 MCG 8.8 GM Inhaler IH SCH (07:32)
[2020-03-05] MEDS: Insulin Lispro 100 Unit/ML 3 ML KwikPen SUBCUT SCH ×3 (07:48→18:31)
[2020-03-05] MEDS: metFORMIN 500 MG Tab PO SCH (07:51)
[2020-03-05] MEDS: Metoprolol Succinate 25 MG Tab.ER PO SCH (08:00)
[2020-03-05] MEDS: Loratadine 10 MG Tab PO SCH (08:00)
[2020-03-05] MEDS: Tamsulosin 0.4 MG Cap.ER PO SCH (08:00)
[2020-03-05] MEDS: Spironolactone 25 MG Tab PO SCH (08:00)
[2020-03-05] MEDS: Aspirin 81 MG Tab.EC PO SCH (08:00)
[2020-03-05] MEDS: Lactobacillus Rhamnosus GG (Probiotic) Cap PO SCH (08:00)
[2020-03-05] MEDS: Clopidogrel 75 MG Tab PO SCH (08:00)
[2020-03-05] MEDS: Lisinopril 2.5 MG Tab PO SCH (08:00)
--- NOTE | 2020-03-05 10:17 | PCM.PN ---
- General Info Date of Service: 03/05/20 Functional Status: Reports: Pain Controlled, Tolerating Diet - Review of Systems General: Denies: Fever Gastrointestinal: Reports: Hematochezia - Patient Data Vitals - Most Recent: Last Vital Signs Temp 36.6 C 03/05/20 07:00 Pulse 95 03/05/20 08:00 Resp 16 03/05/20 07:00 BP 126/50 L 03/05/20 08:00 Pulse Ox 93 L 03/05/20 07:00 Weight - Most Recent: 75.115 kg I&O - Last 24 Hours: Intake & Output 03/04/20 03/05/20 03/05/20 22:59 06:59 14:59 Intake Total 1000 480 Output Total 0 Balance 1000 480 Lab Results Last 24 Hours: Laboratory Results - last 24 hr 03/04/20 03/04/20 03/04/20 Range/Units 11:20 16:45 21:00 WBC (4.5-11.0) K/uL RBC (4.30-5.90) M/uL Hgb (12.0-15.0) g/dL Hct (40.0-54.0) % MCV (80-98) fL MCH (27-31) pg MCHC (32-36) % Plt Count (150-400) K/uL Sodium (140-148) mmol/L Potassium (3.6-5.2) mmol/L Chloride (100-108) mmol/L Carbon Dioxide (21-32) mmol/L Anion Gap (5.0-14.0) mmol/L BUN (7-18) mg/dL Creatinine (0.8-1.3) mg/dL Est Cr Clr Drug Dosing mL/min Estimated GFR (MDRD) (>60) Glucose (74-106) mg/dL POC Glucose 217 H 153 H 146 H (74-106) MG/DL Calcium (8.5-10.1) mg/dL Iron (65-175) ug/dL TIBC (250-450) ug/dl % Saturation (20-55) % Ferritin (8-388) ng/ml 03/05/20 03/05/20 03/05/20 Range/Units 04:20 04:20 04:20 WBC 12.1 H (4.5-11.0) K/uL RBC 3.20 L (4.30-5.90) M/uL Hgb 8.1 L (12.0-15.0) g/dL Hct 26.1 L (40.0-54.0) % MCV 82 (80-98) fL MCH 25 L (27-31) pg MCHC 31 L (32-36) % Plt Count 375 (150-400) K/uL Sodium 123 L (140-148) mmol/L Potassium 5.2 (3.6-5.2) mmol/L Chloride 89 L (100-108) mmol/L Carbon Dioxide 28 (21-32) mmol/L Anion Gap 11.2 (5.0-14.0) mmol/L BUN 10 (7-18) mg/dL Creatinine 0.7 L (0.8-1.3) mg/dL Est Cr Clr Drug Dosing 84.14 mL/min Estimated GFR (MDRD) > 60 (>60) Glucose 144 H (74-106) mg/dL POC Glucose (74-106) MG/DL Calcium 8.1 L (8.5-10.1) mg/dL Iron 18 L (65-175) ug/dL TIBC 218 L (250-450) ug/dl % Saturation 8 L (20-55) % Ferritin 84 (8-388) ng/ml // Range/Units 07:30 WBC (4.5-11.0) K/uL RBC (4.30-5.90) M/uL Hgb (12.0-15.0) g/dL Hct (40.0-54.0) % MCV (80-98) fL MCH (27-31) pg MCHC (32-36) % Plt Count (150-400) K/uL Sodium (140-148) mmol/L Potassium (3.6-5.2) mmol/L Chloride (100-108) mmol/L Carbon Dioxide (21-32) mmol/L Anion Gap (5.0-14.0) mmol/L BUN (7-18) mg/dL Creatinine (0.8-1.3) mg/dL Est Cr Clr Drug Dosing mL/min Estimated GFR (MDRD) (>60) Glucose (74-106) mg/dL POC Glucose 194 H (74-106) MG/DL Calcium (8.5-10.1) mg/dL Iron (65-175) ug/dL TIBC (250-450) ug/dl % Saturation (20-55) % Ferritin (8-388) ng/ml Kristopher Results Last 24 Hours: Microbiology 02/29/20 13:55 Aerobic Blood Culture - Preliminary Blood - Arm, Left NO GROWTH AFTER 4 DAYS Anaerobic Blood Culture - Preliminary NO GROWTH AFTER 4 DAYS 02/29/20 13:45 Aerobic Blood Culture - Preliminary Blood - Arm, Left NO GROWTH AFTER 4 DAYS Anaerobic Blood Culture - Preliminary NO GROWTH AFTER 4 DAYS Med Orders - Current: Current Medications Acetaminophen (Tylenol) 650 mg PO Q4H PRN PRN Reason: Pain (Mild 1-3)/fever Last Admin: 03/02/20 15:20 Dose: 650 mg Documented by: Albuterol (Ventolin Hfa) 0 gm INH Q4H PRN PRN Reason: Shortness of Breath Last Admin: 03/04/20 21:33 Dose: 2 puff Documented by: Albuterol/Ipratropium (Duoneb 3.0-0.5 Mg/3 Ml) 3 ml NEB QID PRN PRN Reason: Shortness Of Breath/wheezing Last Admin: 03/05/20 06:11 Dose: 3 ml Documented by: Aspirin (Halfprin) 81 mg PO DAILY [facility] Last Admin: 03/05/20 08:00 Dose: 81 mg Documented by: Atorvastatin Calcium (Lipitor) 20 mg PO BEDTIME [facility] Last Admin: 03/04/20 21:34 Dose: 20 mg Documented by: Cephalexin (Keflex) 500 mg PO Q8H [facility] Last Admin: 03/05/20 06:07 Dose: 500 mg Documented by: Clopidogrel Bisulfate (Plavix) 75 mg PO DAILY [facility] Last Admin: 03/05/20 08:00 Dose: 75 mg Documented by: Dextrose (Glutose 15) 15 gm PO ASDIRECTED PRN PRN Reason: Hypoglycemia Dextrose/Water (Dextrose 50% In Water) 50 ml IV ASDIRECTED PRN PRN Reason: Hypoglycemia Insulin Human Lispro (Humalog) 0 unit SUBCUT QIDACANDBED [facility]; Protocol Last Admin: 03/05/20 07:48 Dose: 1 unit Documented by: Lactobacillus Rhamnosus (Culturelle) 1 cap PO BID [facility] Last Admin: 03/05/20 08:00 Dose: 1 cap Documented by: Lisinopril (Prinivil) 2.5 mg PO DAILY [facility] Last Admin: 03/05/20 08:00 Dose: 2.5 mg Documented by: Loratadine (Claritin) 10 mg PO DAILY [facility] Last Admin: 03/05/20 08:00 Dose: 10 mg Documented by: Metformin HCl (Glucophage) 500 mg PO BIDMEALS [facility] Last Admin: 03/05/20 07:51 Dose: 500 mg Documented by: Metoprolol Succinate (Toprol Xl) 25 mg PO DAILY [facility] Last Admin: 03/05/20 08:00 Dose: 25 mg Documented by: Mometasone Furoate/Formoterol Fumar (Dulera 100-5 Mcg) 2 puff IH BIDRT [facility] Last Admin: 03/05/20 07:32 Dose: 2 puff Documented by: Ondansetron HCl (Zofran) 4 mg IV Q4H PRN PRN Reason: Nausea/Vomiting Polyethylene Glycol (Miralax) 17 gm PO DAILY PRN PRN Reason: Constipation Sodium Biphosphate/Sodium Phosphate (Fleet Enema) 133 ml RECTAL ONETIME PRN PRN Reason: Constipation Sodium Chloride (Saline Flush) 10 ml FLUSH ASDIRECTED PRN PRN Reason: Keep Vein Open Spironolactone (Aldactone) 25 mg PO DAILY [facility] Last Admin: 03/05/20 08:00 Dose: 25 mg Documented by: Tamsulosin HCl (Flomax) 0.4 mg PO DAILY [facility] Last Admin: 03/05/20 08:00 Dose: 0.4 mg Documented by: Discontinued Medications Bisacodyl (Dulcolax) 10 mg RECTAL ONETIME ONE Stop: 03/02/20 10:31 Last Admin: 03/02/20 10:36 Dose: 10 mg Documented by: Enoxaparin Sodium (Lovenox) 40 mg SUBCUT Q24H [facility] Last Admin: 03/04/20 17:22 Dose: 40 mg Documented by: Sodium Chloride (Normal Saline) 1,000 mls @ 1,000 mls/hr IV .BOLUS ONE Stop: 02/29/20 13:02 Last Admin: 02/29/20 12:17 Dose: 1,000 mls/hr Documented by: Sodium Chloride (Normal Saline) 1,000 mls @ 150 mls/hr IV ASDIRECTED [facility] Last Admin: 02/29/20 13:24 Dose: 150 mls/hr Documented by: Ceftriaxone Sodium 1 gm/ (Sodium Chloride) 50 mls @ 100 mls/hr IV ONETIME ONE Stop: 02/29/20 14:04 Last Admin: 02/29/20 13:52 Dose: 100 mls/hr Documented by: Sodium Chloride (Normal Saline) 1,000 mls @ 125 mls/hr IV ASDIRECTED [facility] Last Admin: 03/01/20 02:38 Dose: 125 mls/hr Documented by: Ceftriaxone Sodium 1 gm/ (Sodium Chloride) 50 mls @ 100 mls/hr IV Q24H [facility] Last Admin: 03/01/20 13:08 Dose: 100 mls/hr Documented by: Lisinopril (Prinivil) 2.5 mg PO DAILY [facility] Magnesium Citrate (Citrate Of Magnesia) 150 ml PO ONETIME ONE Stop: 03/02/20 10:17 Last Admin: 03/02/20 10:36 Dose: 150 ml Documented by: Magnesium Citrate (Citrate Of Magnesia) 150 ml PO ONETIME ONE Stop: 03/03/20 09:32 Last Admin: 03/03/20 09:42 Dose: 150 ml Documented by: Non-Formulary Medication (Amlodipine Besylate [Amlodipine Besylate]) 10 mg PO DAILY [facility] Non-Formulary Medication (Fluticasone/Salmeterol [Advair 500-50]) 1 puff IH BID [facility] Non-Formulary Medication (Triamterene/Hydrochlorothiazid [Maxzide 75 Mg-50 Mg Tablet]) 1 tab PO DAILY [facility] Sodium Chloride (Saline Flush) 10 ml FLUSH ASDIRECTED PRN PRN Reason: Keep Vein Open Last Admin: 02/29/20 12:03 Dose: 10 ml Documented by: - Exam Quality Assessment: No: Supplemental Oxygen General: Alert, Oriented, Cooperative, No Acute Distress Lungs: Normal Respiratory Effort GI/Abdominal Exam: Soft, No Distention Extremities: No Pedal Edema Skin: Warm, Dry Psy/Mental Status: Alert, Normal Affect Sepsis Event Note - Evaluation Sepsis Screening Result: Sepsis Risk - Focused Exam Vital Signs: Vital Signs Temp Pulse Pulse Resp BP BP Pulse Ox 03/05/20 08:00 95 126/50 L 03/05/20 07:00 36.6 C 95 16 126/50 L 93 L 03/05/20 03:00 36.9 C 88 17 127/74 95 03/04/20 22:21 36.7 C 95 18 121/57 L 98 - My Orders Last 24 Hours: My Active Orders 03/04/20 17:00 metFORMIN [Glucophage] 500 mg PO BIDMEALS 03/05/20 10:14 Abdomen Pelvis w Cont [CT] Routine 03/05/20 Lunch NPO Now [Nothing per Oral Now Diet] [DIET] 03/06/20 05:00 CBC W/O DIFF,HEMOGRAM [HEME] Timed (1) COMPREHENSIVE METABOLIC PN,CMP [CHEM] Timed MAGNESIUM [CHEM] Timed - Plan Plan:: ASSESSMENT AND PLAN COMPLICATED URINARY TRACT INFECTION WITH SEPSIS-sepsis and dysuria have resolved. White blood cell count trending down but not quite normalized. -Saline lock IV -Cephalexin 500 mg p.o. every 8 hours HYPONATREMIA-Sodium level stable but not dramatically improved. 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 He does have a smoking history smoking to get a chest x-ray to rule out occult malignancy. Kidney function is normal. No concerning medications. -Chest x-ray -Repeat labs in the morning Anemia-present on admission but level has dropped slightly. No evidence for blood loss. I suspect this is more of a chronic issue but I am not quite sure what his chronic disease would be. There is some concern that it could be related to malignancy with SIADH present but no obvious malignancy apparent at this time. -Iron and ferritin levels -Chest x-ray as above -He may need outpatient imaging or colonoscopy COPD-no evidence of acute exacerbation -Supplemental oxygen and nebulizer therapy as needed -Outpatient medications TYPE 2 DIABETES MELLITUS-sugars have been acceptable. -Restart metformin tomorrow morning -4 times daily glucometers -Low-dose sliding scale Humalog ACUTE URINARY RETENTION-symptoms have improved with treatment for infection and initiation of the tamsulosin. -Tamsulosin CONSTIPATION-resolved with bowel stimulation. MAINTENANCE ISSUES -DVT prophylaxis; enoxaparin -GI prophylaxis; not indicated -Campbell catheter; not indicated -Nutrition; consistent carb diet DISPOSITION-anticipate discharge to home after the hospital stay. Bernard Malave MD
[2020-03-05] MEDS ORDERED: Sodium Chloride 0.9% 10 ML Syringe FLUSH ONE (10:49)
[2020-03-05] MEDS ORDERED: Iopamidol 612 MG/ML 150 ML Bottle IV SCH (11:00)
--- NOTE | 2020-03-05 12:29 | CT ---
Abdomen Pelvis w Cont CLINICAL HISTORY: Hematochezia, iron deficiency anemia COMPARISON: None. TECHNIQUE: Axial tomographic images are obtained from the dome of the diaphragm to the pubic symphysis without IV contrast enhancement. No oral contrast was used. Auto dosage reduction and iterative reconstruction techniques employed. FINDINGS: The lung bases show some minimal pleural parenchymal scarring. There is a minimal right effusion. The liver shows no mass or biliary dilatation. The gallbladder has a normal appearance. The spleen has a normal size and shape. The pancreas shows no mass or inflammatory change. The adrenal glands appear normal bilaterally. The kidneys are free of stones mass or hydronephrosis. Ureters have a normal course and caliber. The aorta shows moderate atheromatous change without aneurysm. There are stenotic plaques in both common and external iliac arteries. There is basilar artery calcific plaque. Some left renal artery origin stenosis is suspected there is some sigmoid diverticulosis. There is a dissection of proximal sigmoid which is thickened. There is some stranding in the pericolic fat. There is also a loculated air and fluid collection measuring 7.2 x 6.7 x 4.1 cm. This extends downward towards the left the inguinal canal. It is contiguous with the left superior lateral aspect of the bladder. There is a large air-fluid level within the bladder suggesting a pericolic abscess with fistulous connection to the bladder. No free air is identified. There is no suspicious retroperitoneal adenopathy. IMPRESSION: Segmental thickening of proximal sigmoid colon with some perinephric stranding in adjacent abscess formation. There is also fistulous connection to the bladder. This is all likely related to diverticulitis but considering the patient's history of underlying neoplasm is not excluded. Moderate atherosclerotic vascular disease of the aortoiliac and visceral vessels Dr. Malave was notified by phone at the time of this dictation at 12:25 PM
[2020-03-05] MEDS ORDERED: Piperacillin/Tazobactam/Dext 3.375 GM in Premix Bag 1 BAG IV SCH (14:00)
--- NOTE | 2020-03-05 14:55 | PCM.DCSUM1 ---
Discharge Summary - Hospital Course Brief History: 80-year-old male with history of well-controlled type 2 diabetes mellitus, coronary artery disease with remote history of stenting and stable COPD who presented with progressive weakness and urinary urgency as well as some retention. He was admitted for management of a complicated urinary tract infection with sepsis and urinary retention. Diagnosis: Stroke: No - Discharge Data Discharge Date: 03/05/20 Discharge Disposition: DC/Tfer to Acute Hospital 02 Condition: Stable - Referral to Home Health Primary Care Physician: Vincent Childress MD - Discharge Diagnosis/Problem(s) (1) Pericolonic abscess due to diverticulitis SNOMED Code(s): 263665176 ICD Code: K57.20 - DVTRCLI OF LG INT W PERFORATION AND ABSCESS W/O BLEEDING Status: Acute Current Visit: Yes (2) Vesical fistula SNOMED Code(s): 31403901 ICD Code: N32.2 - VESICAL FISTULA, NOT ELSEWHERE CLASSIFIED Status: Acute Current Visit: Yes (3) Acute cystitis with positive culture SNOMED Code(s): 177171642 ICD Code: N30.00 - ACUTE CYSTITIS WITHOUT HEMATURIA Status: Acute Current Visit: Yes (4) Sepsis due to Escherichia coli SNOMED Code(s): 945128662 ICD Code: A41.51 - SEPSIS DUE TO ESCHERICHIA COLI [E. COLI] Status: Acute Current Visit: Yes Qualifiers: Sepsis acute organ dysfunction status: without acute organ dysfunction Qualified Code(s): A41.51 - Sepsis due to Escherichia coli [E. coli] (5) Acute urinary retention SNOMED Code(s): 605559683 ICD Code: R33.8 - OTHER RETENTION OF URINE Status: Acute Current Visit: Yes (6) Hyponatremia SNOMED Code(s): 51850908 ICD Code: E87.1 - HYPO-OSMOLALITY AND HYPONATREMIA Status: Acute Current Visit: Yes (7) Type 2 diabetes mellitus SNOMED Code(s): 44683588 ICD Code: E11.9 - TYPE 2 DIABETES MELLITUS WITHOUT COMPLICATIONS Status: Chronic Current Visit: No Qualifiers: Diabetes mellitus intermediate insulin use: without intermediate use Diabetes mellitus complication status: without complication Qualified Code(s): E11.9 - Type 2 diabetes mellitus without complications (8) Coronary artery disease SNOMED Code(s): 27872282 ICD Code: I25.10 - ATHSCL HEART DISEASE OF [place] CORONARY ARTERY W/O ANG PCTRS Status: Chronic Current Visit: Yes Qualifiers: Coronary Disease-Associated Artery/Lesion type: [place] artery [place] vs. transplanted heart: [place] heart Associated angina: without angina Qualified Code(s): I25.10 - Atherosclerotic heart disease of [place] coronary artery without angina pectoris (9) COPD (chronic obstructive pulmonary disease) SNOMED Code(s): 54345129 ICD Code: J44.9 - CHRONIC OBSTRUCTIVE PULMONARY DISEASE, UNSPECIFIED Status: Chronic Current Visit: Yes Qualifiers: COPD type: unspecified COPD Qualified Code(s): J44.9 - Chronic obstructive pulmonary disease, unspecified - Patient Summary/Data Consults: Consultations 03/01/20 08:47 PT Evaluation and Treatment [CONS] Routine Please Evaluate and Treat. PT Reason for Consult: Strengthening Pending Discharge: Yes Discharge Disposition: Home This query below is only for informational purposes and is not editable. Admission Diagnosis/Problem: Sepsis Hospital Course: Emil presented to the emergency room with progressive weakness and urinary urgency as well as some difficulty emptying his bladder. Work-up in the emergency room revealed evidence for acute cystitis with sepsis. His white blood cell count was 39,000. Also noted was a sodium of 123 with only a slight decrease in his renal function with a creatinine of 1.3. Cultures were obtained and he was started on ceftriaxone for management of the presumed urinary tract infection. He received IV fluids. Also noted at the time of admission was a h emoglobin of 9.5. Over the next several days following admission the patient did progress well. His white blood cell count steadily improved. His urinary symptoms resolved though he did require starting tamsulosin to help with his urinary retention. He has not had any fevers. He has not had any abdominal pain. His strength is slowly but steadily improved throughout the course of the hospital stay. His appetite has improved. Overall he was doing quite well. His diabetes has been very well controlled. He had been transitioned from ceftriaxone to cephalexin based on urine culture which grew out a pansensitive E. coli. Even on the oral antibiotics his white count continued to improve and he was doing well. The one thing that we did not see improve throughout the hospital stay was a sodium level. This has remained low in the low to mid 120s. 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 A chest x-ray did not show any evidence for malignancy or abnormality. On the morning of discharge we noted some hematochezia and his hemoglobin had drifted down to 8.1. Iron studies were obtained and did show iron deficiency anemia. We did perform a CT scan of the abdomen and pelvis. This showed evidence for diverticulitis with presumed rupture and abscess formation in the pelvis. He had a fairly large 7 x 6 x 4 cm abscess that did have a fistulous connection with the bladder. I did talk with her surgeon and radiologist here but unfortunately we do not have the interventional radiology catheters available to drain this abscess. I contacted [facility] in [place] and spoke with their colorectal surgeon and hospitalist. The plan is for transfer to [facility] in [place]. He will likely have interventional radiology drain the abscess. He will need some definitive surgical intervention at some point. After the abscess was identified this morning we did expand antibiotic coverage to Pip/Tazo. White blood cell count at the time of discharge was 12,000 Sodium was 123 and this has been stable creatinine 0.7 with a GFR of greater than 60 Potassium was 5.2 Blood cultures have all been negative. Urine culture grew out a pansensitive E. coli - Patient Instructions Diet: NPO Activity: As Tolerated Other/Special Instructions: transfer to [facility] for consultation with interventional radiology and colorectal surgery - Discharge Plan *PRESCRIPTION DRUG MONITORING PROGRAM REVIEWED*: Not Applicable *COPY OF PRESCRIPTION DRUG MONITORING REPORT IN PATIENT VINCE: Not Applicable Home Medications: Home Meds Albuterol [Ventolin HFA] 2 puff IN ASDIRECTED PRN 02/20/18 [History] Aspirin [Halfprin] 81 mg PO DAILY 02/20/18 [History] Fexofenadine [Manisha] 1 tab PO DAILY 02/20/18 [History] Fluticasone/Salmeterol [Advair 500-50] 1 puff IH BID 02/20/18 [History] Metoprolol Succinate [Toprol XL] 25 mg PO DAILY 02/20/18 [History] atorvaSTATin Calcium [Lipitor] 40 mg PO BEDTIME 02/20/18 [History] metFORMIN [Glucophage] 500 mg PO BIDMEALS 02/20/18 [History] Budesonide/Formoterol [Symbicort 80-4.5 MCG] 2 puff INH BID 02/29/20 [History] Clopidogrel Bisulfate [Clopidogrel] 75 mg PO DAILY 02/29/20 [History] Spironolactone [Aldactone] 25 mg PO DAILY 02/29/20 [History] lisinopriL [Lisinopril] 2.5 mg PO DAILY 02/29/20 [History] Oxygen Therapy Mode: Room Air Forms: ED Department Discharge Referrals: Vincent Childress MD [Primary Care Provider] - 03/08/20 1:30 pm (Please arrive 15 minutes early to register for your appointment.) - Discharge Summary/Plan Comment DC Time >30 min.: Yes (60-transfer to acute hospital ) - Patient Data Vitals - Most Recent: Last Vital Signs Temp 36.5 C 03/05/20 12:02 Pulse 80 03/05/20 12:02 Resp 18 03/05/20 12:02 BP 128/65 03/05/20 12:02 Pulse Ox 91 L 03/05/20 12:02 Weight - Most Recent: 75.115 kg I&O - Last 24 hours: Intake & Output 03/04/20 03/05/20 03/05/20 22:59 06:59 14:59 Intake Total 1000 480 Output Total 0 Balance 1000 480 Lab Results - Last 24 hrs: Laboratory Results - last 24 hr 03/04/20 03/04/20 03/05/20 Range/Units 16:45 21:00 04:20 WBC 12.1 H (4.5-11.0) K/uL RBC 3.20 L (4.30-5.90) M/uL Hgb 8.1 L (12.0-15.0) g/dL Hct 26.1 L (40.0-54.0) % MCV 82 (80-98) fL MCH 25 L (27-31) pg MCHC 31 L (32-36) % Plt Count 375 (150-400) K/uL Sodium (140-148) mmol/L Potassium (3.6-5.2) mmol/L Chloride (100-108) mmol/L Carbon Dioxide (21-32) mmol/L Anion Gap (5.0-14.0) mmol/L BUN (7-18) mg/dL Creatinine (0.8-1.3) mg/dL Est Cr Clr Drug Dosing mL/min Estimated GFR (MDRD) (>60) Glucose (74-106) mg/dL POC Glucose 153 H 146 H (74-106) MG/DL Calcium (8.5-10.1) mg/dL Iron (65-175) ug/dL TIBC (250-450) ug/dl % Saturation (20-55) % Ferritin (8-388) ng/ml 03/05/20 03/05/20 03/05/20 Range/Units 04:20 04:20 07:30 WBC (4.5-11.0) K/uL RBC (4.30-5.90) M/uL Hgb (12.0-15.0) g/dL Hct (40.0-54.0) % MCV (80-98) fL MCH (27-31) pg MCHC (32-36) % Plt Count (150-400) K/uL Sodium 123 L (140-148) mmol/L Potassium 5.2 (3.6-5.2) mmol/L Chloride 89 L (100-108) mmol/L Carbon Dioxide 28 (21-32) mmol/L Anion Gap 11.2 (5.0-14.0) mmol/L BUN 10 (7-18) mg/dL Creatinine 0.7 L (0.8-1.3) mg/dL Est Cr Clr Drug Dosing 84.14 mL/min Estimated GFR (MDRD) > 60 (>60) Glucose 144 H (74-106) mg/dL POC Glucose 194 H (74-106) MG/DL Calcium 8.1 L (8.5-10.1) mg/dL Iron 18 L (65-175) ug/dL TIBC 218 L (250-450) ug/dl % Saturation 8 L (20-55) % Ferritin 84 (8-388) ng/ml 03/05/20 Range/Units 11:25 WBC (4.5-11.0) K/uL RBC (4.30-5.90) M/uL Hgb (12.0-15.0) g/dL Hct (40.0-54.0) % MCV (80-98) fL MCH (27-31) pg MCHC (32-36) % Plt Count (150-400) K/uL Sodium (140-148) mmol/L Potassium (3.6-5.2) mmol/L Chloride (100-108) mmol/L Carbon Dioxide (21-32) mmol/L Anion Gap (5.0-14.0) mmol/L BUN (7-18) mg/dL Creatinine (0.8-1.3) mg/dL Est Cr Clr Drug Dosing mL/min Estimated GFR (MDRD) (>60) Glucose (74-106) mg/dL POC Glucose 174 H (74-106) MG/DL Calcium (8.5-10.1) mg/dL Iron (65-175) ug/dL TIBC (250-450) ug/dl % Saturation (20-55) % Ferritin (8-388) ng/ml JEWELS Results - Last 24 hrs: Microbiology 02/29/20 13:55 Aerobic Blood Culture - Final Blood - Arm, Left NO GROWTH AFTER 5 DAYS Anaerobic Blood Culture - Final NO GROWTH AFTER 5 DAYS 02/29/20 13:45 Aerobic Blood Culture - Final Blood - Arm, Left NO GROWTH AFTER 5 DAYS Anaerobic Blood Culture - Final NO GROWTH AFTER 5 DAYS Med Orders - Current: Current Medications Acetaminophen (Tylenol) 650 mg PO Q4H PRN PRN Reason: Pain (Mild 1-3)/fever Last Admin: 03/02/20 15:20 Dose: 650 mg Documented by: Albuterol (Ventolin Hfa) 0 gm INH Q4H PRN PRN Reason: Shortness of Breath Last Admin: 03/04/20 21:33 Dose: 2 puff Documented by: Albuterol/Ipratropium (Duoneb 3.0-0.5 Mg/3 Ml) 3 ml NEB QID PRN PRN Reason: Shortness Of Breath/wheezing Last Admin: 03/05/20 06:11 Dose: 3 ml Documented by: Aspirin (Halfprin) 81 mg PO DAILY [facility] Last Admin: 03/05/20 08:00 Dose: 81 mg Documented by: Atorvastatin Calcium (Lipitor) 20 mg PO BEDTIME [facility] Last Admin: 03/04/20 21:34 Dose: 20 mg Documented by: Clopidogrel Bisulfate (Plavix) 75 mg PO DAILY [facility] Last Admin: 03/05/20 08:00 Dose: 75 mg Documented by: Dextrose (Glutose 15) 15 gm PO ASDIRECTED PRN PRN Reason: Hypoglycemia Dextrose/Water (Dextrose 50% In Water) 50 ml IV ASDIRECTED PRN PRN Reason: Hypoglycemia Piperacillin/Tazobactam/ (Dextrose 3.375 gm/ Premix) 50 mls @ 100 mls/hr IV Q6H [facility] Insulin Human Lispro (Humalog) 0 unit SUBCUT QIDACANDBED [facility]LY [facility], [facility]–1983; Protocol Last Admin: 03/05/20 13:14 Dose: 1 unit Documented by: Lactobacillus Rhamnosus (Culturelle) 1 cap PO BID [facility] Last Admin: 03/05/20 08:00 Dose: 1 cap Documented by: Lisinopril (Prinivil) 2.5 mg PO DAILY [facility] Last Admin: 03/05/20 08:00 Dose: 2.5 mg Documented by: Loratadine (Claritin) 10 mg PO DAILY [facility] Last Admin: 03/05/20 08:00 Dose: 10 mg Documented by: Metformin HCl (Glucophage) 500 mg PO BIDMEALS [facility] Last Admin: 03/05/20 07:51 Dose: 500 mg Documented by: Metoprolol Succinate (Toprol Xl) 25 mg PO DAILY [facility] Last Admin: 03/05/20 08:00 Dose: 25 mg Documented by: Mometasone Furoate/Formoterol Fumar (Dulera 100-5 Mcg) 2 puff IH BIDRT [facility] Last Admin: 03/05/20 07:32 Dose: 2 puff Documented by: Ondansetron HCl (Zofran) 4 mg IV Q4H PRN PRN Reason: Nausea/Vomiting Polyethylene Glycol (Miralax) 17 gm PO DAILY PRN PRN Reason: Constipation Sodium Biphosphate/Sodium Phosphate (Fleet Enema) 133 ml RECTAL ONETIME PRN PRN Reason: Constipation Sodium Chloride (Saline Flush) 10 ml FLUSH ASDIRECTED PRN PRN Reason: Keep Vein Open Spironolactone (Aldactone) 25 mg PO DAILY [facility] Last Admin: 03/05/20 08:00 Dose: 25 mg Documented by: Tamsulosin HCl (Flomax) 0.4 mg PO DAILY [facility] Last Admin: 03/05/20 08:00 Dose: 0.4 mg Documented by: Discontinued Medications Bisacodyl (Dulcolax) 10 mg RECTAL ONETIME ONE Stop: 03/02/20 10:31 Last Admin: 03/02/20 10:36 Dose: 10 mg Documented by: Cephalexin (Keflex) 500 mg PO Q8H [facility] Last Admin: 03/05/20 06:07 Dose: 500 mg Documented by: Enoxaparin Sodium (Lovenox) 40 mg SUBCUT Q24H [facility] Last Admin: 03/04/20 17:22 Dose: 40 mg Documented by: Sodium Chloride (Normal Saline) 1,000 mls @ 1,000 mls/hr IV .BOLUS ONE Stop: 02/29/20 13:02 Last Admin: 02/29/20 12:17 Dose: 1,000 mls/hr Documented by: Sodium Chloride (Normal Saline) 1,000 mls @ 150 mls/hr IV ASDIRECTED [facility] Last Admin: 02/29/20 13:24 Dose: 150 mls/hr Documented by: Ceftriaxone Sodium 1 gm/ (Sodium Chloride) 50 mls @ 100 mls/hr IV ONETIME ONE Stop: 02/29/20 14:04 Last Admin: 02/29/20 13:52 Dose: 100 mls/hr Documented by: Sodium Chloride (Normal Saline) 1,000 mls @ 125 mls/hr IV ASDIRECTED [facility] Last Admin: 03/01/20 02:38 Dose: 125 mls/hr Documented by: Ceftriaxone Sodium 1 gm/ (Sodium Chloride) 50 mls @ 100 mls/hr IV Q24H [facility] Last Admin: 03/01/20 13:08 Dose: 100 mls/hr Documented by: Sodium Chloride (Normal Saline) 74 mls @ 3 mls/sec IV ASDIRECTED [facility]1983 Stop: 03/05/20 11:01 Last Admin: 03/05/20 11:15 Dose: 3 mls/sec Documented by: Iopamidol (Isovue-300 (61%)) 112 ml IV . DIRECTED [facility], [facility] Stop: 03/05/20 11:01 Last Admin: 03/05/20 11:15 Dose: 150 ml Documented by: Lisinopril (Prinivil) 2.5 mg PO DAILY [facility] Magnesium Citrate (Citrate Of Magnesia) 150 ml PO ONETIME ONE Stop: 03/02/20 10:17 Last Admin: 03/02/20 10:36 Dose: 150 ml Documented by: Magnesium Citrate (Citrate Of Magnesia) 150 ml PO ONETIME ONE Stop: 03/03/20 09:32 Last Admin: 03/03/20 09:42 Dose: 150 ml Documented by: Non-Formulary Medication (Amlodipine Besylate [Amlodipine Besylate]) 10 mg PO DAILY [facility] Non-Formulary Medication (Fluticasone/Salmeterol [Advair 500-50]) 1 puff IH BID BRAIN Non-Formulary Medication (Triamterene/Hydrochlorothiazid [Maxzide 75 Mg-50 Mg Tablet]) 1 tab PO DAILY BRAIN Sodium Chloride (Saline Flush) 10 ml FLUSH ASDIRECTED PRN PRN Reason: Keep Vein Open Last Admin: 02/29/20 12:03 Dose: 10 ml Documented by: Sodium Chloride (Saline Flush) 10 ml FLUSH ONETIME ONE Stop: 03/05/20 10:50 Last Admin: 03/05/20 11:15 Dose: 10 ml Documented by:
[2020-03-05] MEDS: Albuterol 8 GM Inhaler INH PRN (16:00)
== END 2020-03-05 19:20 | DRG 872 ==
LOC: JP.ED 10:51 → JP.MS 13:46
PROVIDERS: ADMIT Hospitalist; ATTEND Internal Medicine
DX: E87.1 Hypo-osmolality and hyponatremia (principal); E86.0 Dehydration; E11.65 Type 2 diabetes mellitus with hyperglycemia; A41.51 Sepsis due to Escherichia coli [E. coli]; H91.90 Unspecified hearing loss, unspecified ear; N30.00 Acute cystitis without hematuria; K57.20 Diverticulitis of large intestine with perforation and abscess without bleeding; E22.2 Syndrome of inappropriate secretion of antidiuretic hormone; Z98.890 Other specified postprocedural states; R33.8 Other retention of urine; I25.10 Atherosclerotic heart disease of native coronary artery without angina pectoris; J44.9 Chronic obstructive pulmonary disease, unspecified; H54.7 Unspecified visual loss; E78.5 Hyperlipidemia, unspecified; E11.9 Type 2 diabetes mellitus without complications; K59.00 Constipation, unspecified; D50.9 Iron deficiency anemia, unspecified; I10 Essential (primary) hypertension; Z79.82 Long term (current) use of aspirin; Z79.84 Long term (current) use of oral hypoglycemic drugs; Z79.899 Other long term (current) drug therapy; Z87.891 Personal history of nicotine dependence
CPT/HCPCS: 36415; 80048; 81001; 84443; 84484; 85025; 87040; 87086; 87088; 87186; 96360; 99285; J7030 ×2; 71046; 71046-26; 74177; 74177-26; 82728; 82962; 83550; 85027; 94640; 97162-GP; 97530-GP; A9270-GY; J0696; J1650; J1815; J2543; J3490; J7050; J7620-GY; Q9967

== ENCOUNTER 2021-03-31 09:17 | Emergency (ER) | payer MEDICARE, OTHER ==
[2021-03-31] MEDS ORDERED: Albuterol/Ipratropium 3.0-0.5 MG/3 ML Neb Soln NEB ONE (09:48)
[2021-03-31] MEDS ORDERED: methylPREDNISolone Sodium Succinate 125 MG/2 ML SDV IM ONE (09:48)
--- NOTE | 2021-03-31 10:08 | EDM.PDOC ---
ED HPI GENERAL MEDICAL PROBLEM - General Chief Complaint: Respiratory Problem Stated Complaint: DIFFICULTY BREATHING Time Seen by Provider: 03/31/21 09:40 Source of Information: Reports: Patient History Limitations: Reports: No Limitations - History of Present Illness INITIAL COMMENTS - FREE TEXT/NARRATIVE: 81-year-old male with COPD, tends to get a flare once or twice a year that needs steroids. Over the past several days he has had increasing shortness of breath not responding to his inhaler as well as it usually does. No fevers or chills, no productive cough. The humidity and increased smoke in the air over the past several weeks he thinks is a contributing factor. It has also been very bubba at work. He did receive his first Covid vaccine 4 weeks ago. Onset: Gradual Duration: Day(s): (Several days of increasing shortness of breath and wheezing) Associated Symptoms: Reports: Shortness of Breath. Denies: Fever/Chills, Headaches, Weakness - Related Data Allergies Allergy/AdvReac Type Severity Reaction Status Date / Time No Known Allergies Allergy Verified 03/31/21 09:36 Home Meds: Home Meds Albuterol [Ventolin HFA] 2 puff IN ASDIRECTED PRN 02/20/18 [History] Aspirin [Halfprin] 81 mg PO DAILY 02/20/18 [History] Fexofenadine [Manisha] 1 tab PO DAILY 02/20/18 [History] Fluticasone/Salmeterol [Advair 500-50] 1 puff IH BID 02/20/18 [History] Metoprolol Succinate [Toprol XL] 25 mg PO DAILY 02/20/18 [History] atorvaSTATin Calcium [Lipitor] 40 mg PO BEDTIME 02/20/18 [History] metFORMIN [Glucophage] 500 mg PO BIDMEALS 02/20/18 [History] Budesonide/Formoterol [Symbicort 80-4.5 MCG] 2 puff INH BID 02/29/20 [History] Clopidogrel Bisulfate [Clopidogrel] 75 mg PO DAILY 02/29/20 [History] Spironolactone [Aldactone] 25 mg PO DAILY 02/29/20 [History] lisinopriL [Lisinopril] 2.5 mg PO DAILY 02/29/20 [History] Azithromycin [Zithromax] 250 mg PO DAILY 5 Days #6 tab 03/31/21 [Rx] predniSONE [Prednisone] 20 mg PO DAILY 5 Days #12 tablet 03/31/21 [Rx] Past Medical History HEENT History: Reports: Hard of Hearing, Impaired Vision Cardiovascular History: Reports: Arrhythmia, Hypertension Respiratory History: Reports: COPD, SOB, Other (See Below) Other Respiratory History: Aspergillus Gastrointestinal History: Reports: Other (See Below) Other Gastrointestinal History: umbilical hernia Genitourinary History: Reports: None Musculoskeletal History: Reports: Fracture Other Musculoskeletal History: TOE Neurological History: Reports: None Psychiatric History: Reports: None Endocrine/Metabolic History: Reports: Diabetes, Type II, Other (See Below) Other Endocrine/Metabolic History: hyperlipidemia Immunologic History: Reports: None Oncologic (Cancer) History: Reports: None Dermatologic History: Reports: None - Infectious Disease History Infectious Disease History: Reports: Other (See Below) Other Infectious Disease History: UNKNOWN - Past Surgical History HEENT Surgical History: Reports: Adenoidectomy, Tonsillectomy Cardiovascular Surgical History: Reports: Carotid Stents, Percutaneous Transluminal Angioplasty GI Surgical History: Reports: None Social & Family History - Family History Family Medical History: No Pertinent Family History - Tobacco Use Tobacco Use Status *Q: Never Tobacco User - Caffeine Use Caffeine Use: Reports: None ED ROS GENERAL - Review of Systems Review Of Systems: See Below Constitutional: Reports: Malaise. Denies: Fever, Chills HEENT: Denies: Throat Pain, Vision Change Respiratory: Reports: Shortness of Breath, Cough. Denies: Sputum Cardiovascular: Denies: Chest Pain GI/Abdominal: Denies: Nausea, Vomiting Skin: Denies: Bruising, Erythema Neurological: Denies: Headache Psychiatric: Reports: No Symptoms ED EXAM, GENERAL - Physical Exam Exam: See Below Exam Limited By: No Limitations General Appearance: Alert, No Apparent Distress, Other (Mild increased respiratory effort, O2 sats 96% but looks somewhat uncomfortable) Eye Exam: Bilateral Eye: EOMI Head: Atraumatic Neck: Supple, Non-Tender Respiratory/Chest: Wheezing (Diffuse inspiratory and expiratory wheezing, u nderlying air movement to the bases) Cardiovascular: Regular Rate, Rhythm. No: Tachycardia GI/Abdominal: Soft, Non-Tender Neurological: Alert, Oriented. No: Inattentive, Disoriented Psychiatric: Normal Affect, Normal Mood Skin Exam: Warm, Dry Course - Vital Signs Last Recorded V/S: Last Vital Signs Temp 96.9 F 03/31/21 09:35 Pulse 78 03/31/21 09:52 Resp 20 03/31/21 09:52 BP 156/77 H 03/31/21 09:52 Pulse Ox 95 03/31/21 09:52 - Orders/Labs/Meds Meds: Medications Discontinued Medications Generic Name Dose Route Start Last Admin Trade Name Judson PRN Reason Stop Dose Admin Albuterol/Ipratropium 3 ml 03/31/21 09:48 03/31/21 09:53 Albuterol/Ipratropium 3.0-0.5 Mg/3 Ml Neb Soln NEB 03/31/21 09:49 3 ml ONETIME ONE Administration Methylprednisolone Sodium Succinate 125 mg 03/31/21 09:48 03/31/21 09:54 Methylprednisolone Sodium Succinate 125 Mg/2 Ml Sdv IM 03/31/21 09:49 125 mg ONETIME ONE Administration - Re-Assessments/Exams Free Text/Narrative Re-Assessment/Exam: 03/31/21 10:17 A DuoNeb was given which gave him some mild subjective improvement in moderate objective improvement with less wheezing. He will be discharged on a course of Zithromax, and also prednisone 60 mg for 2 days followed by 40 mg for 3 additional days as well as 125 mg of IM Solu-Medrol. He will return at any time if worsening despite treatment, or consider rechecking in 2 to 3 days if not improving. Departure - Departure Time of Disposition: 10:24 Disposition: Home, Self-Care 01 Clinical Impression: COPD with exacerbation - Discharge Information Prescriptions: predniSONE [Prednisone] 20 mg PO DAILY 5 Days #12 tablet Azithromycin [Zithromax] 250 mg PO DAILY 5 Days #6 tab Instructions: Chronic Obstructive Pulmonary Disease Exacerbation, [id number] Referrals: Vincent Childress MD [Primary Care Provider] - Forms: ED Department Discharge Care Plan Goals: Start your antibiotic today, start prednisone tomorrow with your morning food daily for 5 days. Increase activity as tolerated and continue your inhaler and nebulizer as needed. Return anytime if worsening despite treatment, or consider rechecking in 2 to 3 days if not improving satisfactorily. Sepsis Event Note (ED) - Focused Exam Vital Signs: Vital Signs Temp Pulse Resp BP Pulse Ox 03/31/21 09:52 78 20 156/77 H 95 03/31/21 09:35 96.9 F 81 20 179/135 H 96
== END 2021-03-31 10:30 | disposition home or self-care (01) ==
LOC: JP.ED 09:17
DX: J44.1 Chronic obstructive pulmonary disease with (acute) exacerbation (principal); I10 Essential (primary) hypertension; E11.9 Type 2 diabetes mellitus without complications; Z79.82 Long term (current) use of aspirin; Z79.02 Long term (current) use of antithrombotics/antiplatelets; Z79.84 Long term (current) use of oral hypoglycemic drugs; Z79.899 Other long term (current) drug therapy
CPT/HCPCS: 94640; 96372; 99284; J2930; J7620-GY

== ENCOUNTER 2021-04-24 10:42 | Emergency (ER) | payer MEDICARE, OTHER ==
[2021-04-24] MEDS ORDERED: methylPREDNISolone Sodium Succinate 125 MG/2 ML SDV IVPUSH ONE (11:19)
[2021-04-24] MEDS ORDERED: Albuterol/Ipratropium 3.0-0.5 MG/3 ML Neb Soln NEB ONE (11:19)
--- NOTE | 2021-04-24 11:30 | EDM.PDOC ---
ED HPI GENERAL MEDICAL PROBLEM - General Chief Complaint: Respiratory Problem Stated Complaint: BREATHING ISSUES COPD PATIENT Time Seen by Provider: 04/24/21 11:10 Source of Information: Reports: Patient History Limitations: Reports: No Limitations - History of Present Illness INITIAL COMMENTS - FREE TEXT/NARRATIVE: 81-year-old male, chronic COPD who has an acute exacerbation of shortness of breath over the past 4 days. He has flareups with exposure to dust, humidity, and he has had both of those recently. No fevers or chills. He responds well to steroid bursts and Zithromax in the past. Cough is nonproductive, his albuterol inhaler usually helps but it has not done much for him the last 2 or 3 days. Onset: Gradual Duration: Day(s): (Worsening over the past 3 to 4 days) Associated Symptoms: Reports: Cough, Malaise, Shortness of Breath. Denies: Fever/Chills, Loss of Appetite, Nausea/Vomiting - Related Data Allergies Allergy/AdvReac Type Severity Reaction Status Date / Time No Known Allergies Allergy Verified 03/31/21 09:36 Home Meds: Home Meds Albuterol [Ventolin HFA] 2 puff IN ASDIRECTED PRN 02/20/18 [History] Aspirin [Halfprin] 81 mg PO DAILY 02/20/18 [History] Fexofenadine [Manisha] 1 tab PO DAILY 02/20/18 [History] Fluticasone/Salmeterol [Advair 500-50] 1 puff IH BID 02/20/18 [History] Metoprolol Succinate [Toprol XL] 25 mg PO DAILY 02/20/18 [History] atorvaSTATin Calcium [Lipitor] 40 mg PO BEDTIME 02/20/18 [History] metFORMIN [Glucophage] 500 mg PO BIDMEALS 02/20/18 [History] Budesonide/Formoterol [Symbicort 80-4.5 MCG] 2 puff INH BID 02/29/20 [History] Clopidogrel Bisulfate [Clopidogrel] 75 mg PO DAILY 02/29/20 [History] Spironolactone [Aldactone] 25 mg PO DAILY 02/29/20 [History] lisinopriL [Lisinopril] 2.5 mg PO DAILY 02/29/20 [History] Past Medical History HEENT History: Reports: Hard of Hearing, Impaired Vision Cardiovascular History: Reports: Arrhythmia, Hypertension Respiratory History: Reports: COPD, SOB, Other (See Below) Other Respiratory History: Aspergillus Gastrointestinal History: Reports: Other (See Below) Other Gastrointestinal History: umbilical hernia Genitourinary History: Reports: None Musculoskeletal History: Reports: Fracture Other Musculoskeletal History: TOE Neurological History: Reports: None Psychiatric History: Reports: None Endocrine/Metabolic History: Reports: Diabetes, Type II, Other (See Below) Other Endocrine/Metabolic History: hyperlipidemia Immunologic History: Reports: None Oncologic (Cancer) History: Reports: None Dermatologic History: Reports: None - Infectious Disease History Infectious Disease History: Reports: Other (See Below) Other Infectious Disease History: UNKNOWN - Past Surgical History HEENT Surgical History: Reports: Adenoidectomy, Tonsillectomy Cardiovascular Surgical History: Reports: Carotid Stents, Percutaneous Transluminal Angioplasty GI Surgical History: Reports: None Social & Family History - Family History Family Medical History: No Pertinent Family History - Tobacco Use Tobacco Use Status *Q: Never Tobacco User - Caffeine Use Caffeine Use: Reports: Coffee ED ROS GENERAL - Review of Systems Review Of Systems: See Below Constitutional: Reports: Malaise. Denies: Fever, Chills HEENT: Denies: Throat Pain Respiratory: Reports: Shortness of Breath, Wheezing, Cough. Denies: Sputum Cardiovascular: Denies: Chest Pain, Palpitations GI/Abdominal: Denies: Abdominal Pain, Nausea, Vomiting Musculoskeletal: Reports: No Symptoms Skin: Reports: Bruising (Bruises easily) Neurological: Denies: Dizziness, Headache ED EXAM, GENERAL - Physical Exam Exam: See Below Exam Limited By: No Limitations General Appearance: Alert, No Apparent Distress (Looks uncomfortable with moderate increased respiratory effort but not distressed) Eye Exam: Bilateral Eye: Normal Inspection Head: Atraumatic Respiratory/Chest: Respiratory Distress (Mild increased respiratory effort, diffuse decreased breath sounds and diffuse expiratory wheezes bilaterally) Cardiovascular: Regular Rate, Rhythm. No: Tachycardia GI/Abdominal: Soft, Non-Tender Extremities: Normal Inspection. No: Pedal Edema Neurological: Alert, Oriented Course - Vital Signs Last Recorded V/S: Last Vital Signs Temp 97.9 F 04/24/21 11:20 Pulse 89 04/24/21 11:20 Resp 20 04/24/21 10:59 BP 178/69 H 04/24/21 11:20 Pulse Ox 95 04/24/21 11:20 - Orders/Labs/Meds Meds: Medications Discontinued Medications Generic Name Dose Route Start Last Admin Trade Name Judson PRN Reason Stop Dose Admin Albuterol/Ipratropium 3 ml 04/24/21 11:19 04/24/21 11:24 Albuterol/Ipratropium 3.0-0.5 Mg/3 Ml Neb Soln NEB 04/24/21 11:20 3 ml ONETIME ONE Administration Methylprednisolone Sodium Succinate 125 mg 04/24/21 11:19 04/24/21 11:24 Methylprednisolone Sodium Succinate 125 Mg/2 Ml Sdv IVPUSH 04/24/21 11:20 125 mg ONETIME ONE Administration - Re-Assessments/Exams Free Text/Narrative Re-Assessment/Exam: 04/24/21 11:55 An IV was started, patient was given a DuoNeb which gave him subjective improvement. Objectively he still had significant wheezing, O2 saturations remained in the mid 90s. He was given 125 mg of IV Solu-Medrol, and was started on a 5-day course of Zithromax as well as a tapering steroid course with 40 mg tonight, 60 mg for 3 days, 40 for 3 days then 20 for 3 days over the next 10 days. Continue with as needed albuterol and continue his Symbicort inhaler twice daily. Return anytime if worsening despite treatment. Departure - Departure Time of Disposition: 12:05 Disposition: Home, Self-Care 01 Clinical Impression: COPD with exacerbation - Discharge Information Instructions: Chronic Obstructive Pulmonary Disease Exacerbation, [id number] Referrals: Vincent Childress MD [Primary Care Provider] - Forms: ED Department Discharge Care Plan Goals: Continue your current medications, take 2 pills of prednisone tonight then start 3 daily tomorrow morning as directed on the prescription. Start antibiotic as soon as you fill the prescription. Continue using your inhalers as needed and increase activity as tolerated. Return if worsening despite treatment. Also consider rechecking in 3 to 4 days if not improving satisfactorily. Sepsis Event Note (ED) - Focused Exam Vital Signs: Vital Signs Temp Pulse Resp BP Pulse Ox 04/24/21 11:20 97.9 F 89 178/69 H 95 04/24/21 10:59 97.9 F 89 20 178/69 H 95
== END 2021-04-24 12:05 | disposition home or self-care (01) ==
LOC: JP.ED 10:42
DX: J44.1 Chronic obstructive pulmonary disease with (acute) exacerbation (principal); E11.9 Type 2 diabetes mellitus without complications; Z79.82 Long term (current) use of aspirin; Z79.02 Long term (current) use of antithrombotics/antiplatelets; Z79.899 Other long term (current) drug therapy; Z79.84 Long term (current) use of oral hypoglycemic drugs
CPT/HCPCS: 96374; 99284; J2930; J7620-GY

== ENCOUNTER 2021-11-13 19:11 | Inpatient (IN) | payer MEDICARE, OTHER ==
[2021-11-13] MEDS ORDERED: Albuterol/Ipratropium 3.0-0.5 MG/3 ML Neb Soln NEB ONE (19:30)
[2021-11-13] MEDS ORDERED: methylPREDNISolone Sodium Succinate 125 MG/2 ML SDV IVPUSH ONE (19:31)
[2021-11-13] MEDS ORDERED: Albuterol/Ipratropium 3.0-0.5 MG/3 ML Neb Soln ONE (19:31)
[2021-11-13] MEDS: Sodium Chloride 0.9% 10 ML Syringe FLUSH PRN (19:45)
[2021-11-13 20:25] LABS: CORONAVIRUS COVID-19 NAA NEGATIVE (NEGATIVE)
[2021-11-13] MEDS ORDERED: Azithromycin 250 MG Tab PO STA (20:35)
[2021-11-13] MEDS ORDERED: Docusate Sodium 100 MG Cap PO PRN (22:09)
[2021-11-13] MEDS ORDERED: Enoxaparin 40 MG/0.4 ML Syringe SUBCUT SCH (22:09)
[2021-11-13] MEDS ORDERED: Morphine 2 MG/ML SYRINGE IVPUSH PRN (22:09)
[2021-11-13] MEDS ORDERED: Acetaminophen 325 MG Tab PO PRN (22:09)
[2021-11-13] MEDS ORDERED: Bisacodyl 5 MG Tab PO PRN (22:09)
[2021-11-13] MEDS ORDERED: oxyCODONE 5 MG Tab PO PRN (22:09)
[2021-11-13] MEDS ORDERED: Promethazine 25 MG Tab PO PRN (22:09)
[2021-11-13] MEDS ORDERED: LORazepam 2 MG/ML SDV IV PRN (22:09)
[2021-11-13] MEDS ORDERED: cefTRIAXone 1 GM in Sodium Chloride 0.9% 50 ML IV SCH (22:09)
[2021-11-13] MEDS: Sodium Chloride 0.9% 1,000 ML IV SCH (22:38)
[2021-11-14] MEDS: Albuterol/Ipratropium 3.0-0.5 MG/3 ML Neb Soln NEB SCH ×5 (00:21→20:46)
[2021-11-14] MEDS: methylPREDNISolone Sodium Succinate 125 MG/2 ML SDV IV SCH ×4 (00:22→21:52)
[2021-11-14] MEDS: Insulin Lispro 100 Unit/ML 3 ML KwikPen SUBCUT SCH ×4 (08:07→20:40)
[2021-11-14] MEDS: Sodium Chloride 0.9% 1,000 ML IV SCH (08:21)
[2021-11-14] MEDS: Lisinopril 2.5 MG Tab PO SCH (09:47)
[2021-11-14] MEDS: Metoprolol Succinate 25 MG Tab.ER PO SCH (09:47)
[2021-11-14] MEDS: Tamsulosin 0.4 MG Cap.ER PO SCH (09:47)
[2021-11-14] MEDS: Furosemide 40 MG Tab PO SCH (09:47)
[2021-11-14] MEDS: amLODIPine 5 MG Tab PO SCH (09:47)
[2021-11-14] MEDS ORDERED: methylPREDNISolone Sodium Succinate 125 MG/2 ML SDV IV SCH (12:00)
[2021-11-14] MEDS: Nystatin Crm 15 GM Tube TOP SCH ×2 (12:42→20:40)
[2021-11-14] MEDS ORDERED: Insulin Lispro 100 Unit/ML 3 ML KwikPen SUBCUT ONE (16:45)
[2021-11-14] MEDS: metFORMIN 500 MG Tab PO SCH (17:13)
[2021-11-14] MEDS: Enoxaparin 40 MG/0.4 ML Syringe SUBCUT SCH (20:38)
[2021-11-14] MEDS: Formoterol/Mometasone 100-5 MCG 8.8 GM Inhaler IH SCH (20:39)
[2021-11-14] MEDS: atorvaSTATin 20 MG Tab PO SCH (20:39)
[2021-11-14] MEDS: Azithromycin 250 MG Tab PO SCH (20:39)
[2021-11-14] MEDS: cefTRIAXone 1 GM in Sodium Chloride 0.9% 50 ML IV SCH (20:47)
[2021-11-15] MEDS: Albuterol/Ipratropium 3.0-0.5 MG/3 ML Neb Soln NEB SCH ×4 (07:16→20:41)
[2021-11-15] MEDS: Formoterol/Mometasone 100-5 MCG 8.8 GM Inhaler IH SCH ×2 (07:17→20:41)
[2021-11-15] MEDS: Insulin Lispro 100 Unit/ML 3 ML KwikPen SUBCUT SCH ×4 (08:05→21:51)
[2021-11-15] MEDS: predniSONE 20 MG Tab PO SCH (08:06)
[2021-11-15] MEDS: metFORMIN 500 MG Tab PO SCH ×2 (08:06→17:25)
[2021-11-15] MEDS: Metoprolol Succinate 25 MG Tab.ER PO SCH (08:07)
[2021-11-15] MEDS: Loratadine 10 MG Tab PO SCH (08:07)
[2021-11-15] MEDS: Furosemide 40 MG Tab PO SCH (08:07)
[2021-11-15] MEDS: amLODIPine 5 MG Tab PO SCH (08:07)
[2021-11-15] MEDS: Clopidogrel 75 MG Tab PO SCH (08:07)
[2021-11-15] MEDS: Tamsulosin 0.4 MG Cap.ER PO SCH (08:08)
[2021-11-15] MEDS: Nystatin Crm 15 GM Tube TOP SCH ×2 (08:08→20:40)
[2021-11-15] MEDS: Aspirin 81 MG Tab.EC PO SCH (08:08)
[2021-11-15] MEDS: Lisinopril 2.5 MG Tab PO SCH (08:08)
[2021-11-15] MEDS ORDERED: Non-Formulary Medication 1 Each (Fexofenadine [Allegra] 180 MG Tablet) PO SCH (09:00)
[2021-11-15] MEDS: atorvaSTATin 20 MG Tab PO SCH (20:41)
[2021-11-15] MEDS: Azithromycin 250 MG Tab PO SCH (20:41)
[2021-11-15] MEDS: Enoxaparin 40 MG/0.4 ML Syringe SUBCUT SCH (20:41)
[2021-11-15] MEDS: cefTRIAXone 1 GM in Sodium Chloride 0.9% 50 ML IV SCH (20:43)
[2021-11-16] MEDS: Formoterol/Mometasone 100-5 MCG 8.8 GM Inhaler IH SCH ×2 (07:20→20:46)
[2021-11-16] MEDS: Albuterol/Ipratropium 3.0-0.5 MG/3 ML Neb Soln NEB SCH ×4 (07:21→20:45)
[2021-11-16] MEDS: Insulin Lispro 100 Unit/ML 3 ML KwikPen SUBCUT SCH ×4 (07:59→22:36)
[2021-11-16] MEDS: metFORMIN 500 MG Tab PO SCH ×2 (08:02→17:09)
[2021-11-16] MEDS: predniSONE 20 MG Tab PO SCH (08:02)
[2021-11-16] MEDS: Tamsulosin 0.4 MG Cap.ER PO SCH (08:04)
[2021-11-16] MEDS: Aspirin 81 MG Tab.EC PO SCH (08:04)
[2021-11-16] MEDS: Furosemide 40 MG Tab PO SCH (08:05)
[2021-11-16] MEDS: amLODIPine 5 MG Tab PO SCH (08:08)
[2021-11-16] MEDS: Clopidogrel 75 MG Tab PO SCH (08:08)
[2021-11-16] MEDS: Nystatin Crm 15 GM Tube TOP SCH ×2 (08:08→20:47)
[2021-11-16] MEDS: Lisinopril 2.5 MG Tab PO SCH (08:09)
[2021-11-16] MEDS: Metoprolol Succinate 25 MG Tab.ER PO SCH (08:09)
[2021-11-16] MEDS: Loratadine 10 MG Tab PO SCH (08:11)
[2021-11-16] MEDS: Codeine/guaiFENesin 10-100 MG/5 ML Syrup 5 ML Cup PO PRN (19:42)
[2021-11-16] MEDS: Benzonatate 100 MG Cap PO PRN (19:42)
[2021-11-16] MEDS: cefTRIAXone 1 GM in Sodium Chloride 0.9% 50 ML IV SCH (20:45)
[2021-11-16] MEDS: Melatonin 3 MG Tab PO PRN (20:45)
[2021-11-16] MEDS: Enoxaparin 40 MG/0.4 ML Syringe SUBCUT SCH (20:47)
[2021-11-16] MEDS: atorvaSTATin 20 MG Tab PO SCH (20:47)
[2021-11-16] MEDS: Azithromycin 250 MG Tab PO SCH (20:47)
[2021-11-17] MEDS: Formoterol/Mometasone 100-5 MCG 8.8 GM Inhaler IH SCH ×2 (07:10→21:38)
[2021-11-17] MEDS: predniSONE 20 MG Tab PO SCH (07:59)
[2021-11-17] MEDS: Clopidogrel 75 MG Tab PO SCH (07:59)
[2021-11-17] MEDS: Tamsulosin 0.4 MG Cap.ER PO SCH (07:59)
[2021-11-17] MEDS: Furosemide 40 MG Tab PO SCH (08:00)
[2021-11-17] MEDS: metFORMIN 500 MG Tab PO SCH ×2 (08:00→17:26)
[2021-11-17] MEDS: amLODIPine 5 MG Tab PO SCH (08:00)
[2021-11-17] MEDS: Metoprolol Succinate 25 MG Tab.ER PO SCH (08:00)
[2021-11-17] MEDS: Loratadine 10 MG Tab PO SCH (08:00)
[2021-11-17] MEDS: Aspirin 81 MG Tab.EC PO SCH (08:00)
[2021-11-17] MEDS: Nystatin Crm 15 GM Tube TOP SCH ×2 (08:01→21:37)
[2021-11-17] MEDS: Lisinopril 2.5 MG Tab PO SCH (08:01)
[2021-11-17] MEDS: Insulin Lispro 100 Unit/ML 3 ML KwikPen SUBCUT SCH ×4 (08:06→21:33)
[2021-11-17] MEDS: Codeine/guaiFENesin 10-100 MG/5 ML Syrup 5 ML Cup PO PRN ×2 (12:01→21:37)
[2021-11-17] MEDS: Benzonatate 100 MG Cap PO PRN ×2 (13:40→21:37)
[2021-11-17] MEDS: methylPREDNISolone Sodium Succinate 40 MG/1 ML SDV IVPUSH SCH (15:28)
[2021-11-17] MEDS: Melatonin 3 MG Tab PO PRN (21:38)
[2021-11-17] MEDS: atorvaSTATin 20 MG Tab PO SCH (21:39)
[2021-11-17] MEDS: Enoxaparin 40 MG/0.4 ML Syringe SUBCUT SCH (21:40)
[2021-11-17] MEDS: Azithromycin 250 MG Tab PO SCH (21:40)
[2021-11-17] MEDS: cefTRIAXone 1 GM in Sodium Chloride 0.9% 50 ML IV SCH (21:42)
[2021-11-18] MEDS: methylPREDNISolone Sodium Succinate 40 MG/1 ML SDV IVPUSH SCH ×4 (00:23→23:02)
[2021-11-18] MEDS: Albuterol 0.083% 2.5 MG/3 ML Neb Soln NEB PRN (00:51)
[2021-11-18] MEDS: Formoterol/Mometasone 100-5 MCG 8.8 GM Inhaler IH SCH ×2 (07:44→20:56)
[2021-11-18] MEDS: amLODIPine 5 MG Tab PO SCH (08:07)
[2021-11-18] MEDS: Loratadine 10 MG Tab PO SCH (08:07)
[2021-11-18] MEDS: Tamsulosin 0.4 MG Cap.ER PO SCH (08:07)
[2021-11-18] MEDS: Aspirin 81 MG Tab.EC PO SCH (08:07)
[2021-11-18] MEDS: Metoprolol Succinate 25 MG Tab.ER PO SCH (08:07)
[2021-11-18] MEDS: Lisinopril 2.5 MG Tab PO SCH (08:07)
[2021-11-18] MEDS: Furosemide 40 MG Tab PO SCH (08:07)
[2021-11-18] MEDS: Insulin Lispro 100 Unit/ML 3 ML KwikPen SUBCUT SCH ×4 (08:08→21:52)
[2021-11-18] MEDS: Clopidogrel 75 MG Tab PO SCH (08:08)
[2021-11-18] MEDS: Nystatin Crm 15 GM Tube TOP SCH ×2 (08:08→20:57)
[2021-11-18] MEDS: metFORMIN 500 MG Tab PO SCH ×2 (08:08→16:51)
[2021-11-18] MEDS ORDERED: Insulin Lispro 100 Unit/ML 3 ML KwikPen SUBCUT ONE (16:29)
[2021-11-18] MEDS: cefTRIAXone 1 GM in Sodium Chloride 0.9% 50 ML IV SCH (20:57)
[2021-11-18] MEDS: Enoxaparin 40 MG/0.4 ML Syringe SUBCUT SCH (20:57)
[2021-11-18] MEDS: atorvaSTATin 20 MG Tab PO SCH (20:57)
[2021-11-18] MEDS: Benzonatate 100 MG Cap PO PRN (20:58)
[2021-11-18] MEDS: Melatonin 3 MG Tab PO PRN (20:58)
[2021-11-18] MEDS: Azithromycin 250 MG Tab PO SCH (20:58)
[2021-11-18] MEDS: Codeine/guaiFENesin 10-100 MG/5 ML Syrup 5 ML Cup PO PRN (20:58)
[2021-11-19] MEDS: Albuterol 0.083% 2.5 MG/3 ML Neb Soln NEB PRN ×3 (00:49→23:34)
[2021-11-19] MEDS: Formoterol/Mometasone 100-5 MCG 8.8 GM Inhaler IH SCH ×2 (07:01→20:32)
[2021-11-19] MEDS: methylPREDNISolone Sodium Succinate 40 MG/1 ML SDV IVPUSH SCH ×3 (07:35→23:26)
[2021-11-19] MEDS: metFORMIN 500 MG Tab PO SCH ×2 (07:35→17:57)
[2021-11-19] MEDS: Insulin Lispro 100 Unit/ML 3 ML KwikPen SUBCUT SCH ×4 (07:42→21:12)
[2021-11-19] MEDS: Aspirin 81 MG Tab.EC PO SCH (09:19)
[2021-11-19] MEDS: amLODIPine 5 MG Tab PO SCH (09:20)
[2021-11-19] MEDS: Loratadine 10 MG Tab PO SCH (09:20)
[2021-11-19] MEDS: Tamsulosin 0.4 MG Cap.ER PO SCH (09:20)
[2021-11-19] MEDS: Clopidogrel 75 MG Tab PO SCH (09:20)
[2021-11-19] MEDS: Metoprolol Succinate 25 MG Tab.ER PO SCH (09:20)
[2021-11-19] MEDS: Lisinopril 2.5 MG Tab PO SCH (09:20)
[2021-11-19] MEDS: Furosemide 40 MG Tab PO SCH (09:20)
[2021-11-19] MEDS: Nystatin Crm 15 GM Tube TOP SCH ×2 (09:22→20:33)
[2021-11-19] MEDS: Codeine/guaiFENesin 10-100 MG/5 ML Syrup 5 ML Cup PO PRN (19:16)
[2021-11-19] MEDS: Azithromycin 250 MG Tab PO SCH (20:32)
[2021-11-19] MEDS: atorvaSTATin 20 MG Tab PO SCH (20:32)
[2021-11-19] MEDS: Enoxaparin 40 MG/0.4 ML Syringe SUBCUT SCH (20:32)
[2021-11-19] MEDS: cefTRIAXone 1 GM in Sodium Chloride 0.9% 50 ML IV SCH (20:33)
[2021-11-19] MEDS: Melatonin 3 MG Tab PO PRN (20:33)
[2021-11-19] MEDS: Albuterol/Ipratropium 3.0-0.5 MG/3 ML Neb Soln NEB SCH (21:01)
[2021-11-20] MEDS: Formoterol/Mometasone 100-5 MCG 8.8 GM Inhaler IH SCH ×2 (07:00→21:18)
[2021-11-20] MEDS: Albuterol/Ipratropium 3.0-0.5 MG/3 ML Neb Soln NEB SCH ×4 (07:00→21:27)
[2021-11-20] MEDS: methylPREDNISolone Sodium Succinate 40 MG/1 ML SDV IVPUSH SCH (07:58)
[2021-11-20] MEDS: Insulin Lispro 100 Unit/ML 3 ML KwikPen SUBCUT SCH ×4 (08:47→21:16)
[2021-11-20] MEDS: Metoprolol Succinate 25 MG Tab.ER PO SCH (08:50)
[2021-11-20] MEDS: Clopidogrel 75 MG Tab PO SCH (08:50)
[2021-11-20] MEDS: Furosemide 40 MG Tab PO SCH (08:51)
[2021-11-20] MEDS: metFORMIN 500 MG Tab PO SCH ×2 (08:51→16:41)
[2021-11-20] MEDS: Loratadine 10 MG Tab PO SCH (08:51)
[2021-11-20] MEDS: Aspirin 81 MG Tab.EC PO SCH (08:51)
[2021-11-20] MEDS: Lisinopril 2.5 MG Tab PO SCH (08:51)
[2021-11-20] MEDS: Tamsulosin 0.4 MG Cap.ER PO SCH (08:51)
[2021-11-20] MEDS: Nystatin Crm 15 GM Tube TOP SCH ×2 (08:52→21:19)
[2021-11-20] MEDS: amLODIPine 5 MG Tab PO SCH (08:52)
[2021-11-20] MEDS ORDERED: predniSONE 20 MG Tab PO SCH (09:00)
[2021-11-20] MEDS: atorvaSTATin 20 MG Tab PO SCH (21:18)
[2021-11-20] MEDS: Enoxaparin 40 MG/0.4 ML Syringe SUBCUT SCH (21:19)
[2021-11-20] MEDS: Azithromycin 250 MG Tab PO SCH (21:20)
[2021-11-20] MEDS: Melatonin 3 MG Tab PO PRN (21:27)
[2021-11-20] MEDS: cefTRIAXone 1 GM in Sodium Chloride 0.9% 50 ML IV SCH (21:27)
[2021-11-21] MEDS: metFORMIN 500 MG Tab PO SCH ×2 (07:24→16:55)
[2021-11-21] MEDS: Albuterol/Ipratropium 3.0-0.5 MG/3 ML Neb Soln NEB SCH ×4 (07:33→21:24)
[2021-11-21] MEDS: Formoterol/Mometasone 100-5 MCG 8.8 GM Inhaler IH SCH ×2 (07:42→21:25)
[2021-11-21] MEDS: Insulin Lispro 100 Unit/ML 3 ML KwikPen SUBCUT SCH ×4 (08:32→21:25)
[2021-11-21] MEDS: Lisinopril 2.5 MG Tab PO SCH (08:39)
[2021-11-21] MEDS: Tamsulosin 0.4 MG Cap.ER PO SCH (08:40)
[2021-11-21] MEDS: amLODIPine 5 MG Tab PO SCH (08:40)
[2021-11-21] MEDS: Aspirin 81 MG Tab.EC PO SCH (08:40)
[2021-11-21] MEDS: Loratadine 10 MG Tab PO SCH (08:40)
[2021-11-21] MEDS: Clopidogrel 75 MG Tab PO SCH (08:40)
[2021-11-21] MEDS: Furosemide 40 MG Tab PO SCH (08:41)
[2021-11-21] MEDS: Metoprolol Succinate 25 MG Tab.ER PO SCH (08:41)
[2021-11-21] MEDS: Nystatin Crm 15 GM Tube TOP SCH ×2 (08:41→21:27)
[2021-11-21] MEDS ORDERED: predniSONE 20 MG Tab PO SCH (09:00)
[2021-11-21] MEDS: atorvaSTATin 20 MG Tab PO SCH (21:26)
[2021-11-21] MEDS: Enoxaparin 40 MG/0.4 ML Syringe SUBCUT SCH (21:27)
[2021-11-21] MEDS: Melatonin 3 MG Tab PO PRN (21:37)
[2021-11-22] MEDS: Albuterol/Ipratropium 3.0-0.5 MG/3 ML Neb Soln NEB SCH ×4 (07:29→21:26)
[2021-11-22] MEDS: Formoterol/Mometasone 100-5 MCG 8.8 GM Inhaler IH SCH ×2 (07:29→21:33)
[2021-11-22] MEDS: Insulin Lispro 100 Unit/ML 3 ML KwikPen SUBCUT SCH ×4 (08:01→21:25)
[2021-11-22] MEDS: metFORMIN 500 MG Tab PO SCH ×2 (08:01→17:40)
[2021-11-22] MEDS: Furosemide 40 MG Tab PO SCH (09:48)
[2021-11-22] MEDS: Tamsulosin 0.4 MG Cap.ER PO SCH (09:48)
[2021-11-22] MEDS: Aspirin 81 MG Tab.EC PO SCH (09:49)
[2021-11-22] MEDS: Loratadine 10 MG Tab PO SCH (09:49)
[2021-11-22] MEDS: Clopidogrel 75 MG Tab PO SCH (09:50)
[2021-11-22] MEDS: amLODIPine 5 MG Tab PO SCH (09:50)
[2021-11-22] MEDS: Metoprolol Succinate 25 MG Tab.ER PO SCH (09:50)
[2021-11-22] MEDS: Nystatin Crm 15 GM Tube TOP SCH ×2 (09:51→21:27)
[2021-11-22] MEDS: Lisinopril 2.5 MG Tab PO SCH (09:51)
[2021-11-22] MEDS ORDERED: Furosemide 40 MG Tab PO ONE (12:08)
[2021-11-22] MEDS ORDERED: Sodium Chloride 0.9% 10 ML Syringe FLUSH PRN (13:18)
[2021-11-22] MEDS: predniSONE 20 MG Tab PO SCH (13:27)
[2021-11-22] MEDS ORDERED: Sodium Chloride 0.9% 1,000 ML IV SCH (13:30)
[2021-11-22] MEDS ORDERED: Furosemide 40 MG/4 ML VIAL IVPUSH ONE ×2 (14:21→14:40)
[2021-11-22] MEDS: atorvaSTATin 20 MG Tab PO SCH (21:26)
[2021-11-22] MEDS: Enoxaparin 40 MG/0.4 ML Syringe SUBCUT SCH (21:27)
[2021-11-22] MEDS: Melatonin 3 MG Tab PO PRN (21:33)
[2021-11-23] MEDS: Formoterol/Mometasone 100-5 MCG 8.8 GM Inhaler IH SCH ×2 (07:38→21:31)
[2021-11-23] MEDS: Albuterol/Ipratropium 3.0-0.5 MG/3 ML Neb Soln NEB SCH ×4 (07:38→21:37)
[2021-11-23] MEDS: metFORMIN 500 MG Tab PO SCH ×2 (08:24→16:40)
[2021-11-23] MEDS: Metoprolol Succinate 25 MG Tab.ER PO SCH (08:25)
[2021-11-23] MEDS: Furosemide 40 MG Tab PO SCH (08:26)
[2021-11-23] MEDS: Lisinopril 2.5 MG Tab PO SCH (08:26)
[2021-11-23] MEDS: amLODIPine 5 MG Tab PO SCH (08:26)
[2021-11-23] MEDS: Aspirin 81 MG Tab.EC PO SCH (08:26)
[2021-11-23] MEDS: Tamsulosin 0.4 MG Cap.ER PO SCH (08:26)
[2021-11-23] MEDS: Loratadine 10 MG Tab PO SCH (08:26)
[2021-11-23] MEDS: Insulin Lispro 100 Unit/ML 3 ML KwikPen SUBCUT SCH ×4 (08:27→21:30)
[2021-11-23] MEDS ORDERED: Sodium Polystyrene Sulfonate 15 GM/60 ML Susp 60 ML Bot PO ONE (08:29)
[2021-11-23] MEDS: predniSONE 20 MG Tab PO SCH (08:31)
[2021-11-23] MEDS: Clopidogrel 75 MG Tab PO SCH (08:31)
[2021-11-23] MEDS: Nystatin Crm 15 GM Tube TOP SCH ×2 (08:31→21:32)
[2021-11-23] MEDS: atorvaSTATin 20 MG Tab PO SCH (21:31)
[2021-11-23] MEDS: Enoxaparin 40 MG/0.4 ML Syringe SUBCUT SCH (21:31)
[2021-11-23] MEDS: Melatonin 3 MG Tab PO PRN (21:37)
[2021-11-23] MEDS: Codeine/guaiFENesin 10-100 MG/5 ML Syrup 5 ML Cup PO PRN (21:37)
[2021-11-24] MEDS: Albuterol/Ipratropium 3.0-0.5 MG/3 ML Neb Soln NEB SCH ×5 (07:57→21:48)
[2021-11-24] MEDS: Formoterol/Mometasone 100-5 MCG 8.8 GM Inhaler IH SCH ×3 (07:57→21:44)
[2021-11-24] MEDS: Insulin Lispro 100 Unit/ML 3 ML KwikPen SUBCUT SCH ×4 (08:08→21:43)
[2021-11-24] MEDS: metFORMIN 500 MG Tab PO SCH ×2 (08:18→16:36)
[2021-11-24] MEDS: Aspirin 81 MG Tab.EC PO SCH (08:19)
[2021-11-24] MEDS: Tamsulosin 0.4 MG Cap.ER PO SCH (08:19)
[2021-11-24] MEDS: amLODIPine 5 MG Tab PO SCH (08:20)
[2021-11-24] MEDS: Lisinopril 2.5 MG Tab PO SCH (08:20)
[2021-11-24] MEDS: Metoprolol Succinate 25 MG Tab.ER PO SCH (08:20)
[2021-11-24] MEDS: Loratadine 10 MG Tab PO SCH (08:23)
[2021-11-24] MEDS: Nystatin Crm 15 GM Tube TOP SCH ×2 (08:23→21:46)
[2021-11-24] MEDS: Clopidogrel 75 MG Tab PO SCH (08:23)
[2021-11-24] MEDS: predniSONE 20 MG Tab PO SCH (08:25)
[2021-11-24] MEDS: Furosemide 40 MG Tab PO SCH (10:39)
[2021-11-24] MEDS: Sodium Chloride 0.9% 10 ML Syringe FLUSH PRN ×2 (11:29→16:38)
[2021-11-24] MEDS ORDERED: Sodium Chloride 0.9% 10 ML Syringe FLUSH PRN (12:10)
[2021-11-24] MEDS ORDERED: Iopamidol 755 Mg/ML 100 ML Bottle IV SCH (12:15)
[2021-11-24] MEDS ORDERED: Sodium Chloride 0.9% 75 ML IV SCH (12:15)
[2021-11-24] MEDS: Pantoprazole 40 MG Tab.CR PO SCH ×2 (12:40→16:35)
[2021-11-24] MEDS ORDERED: Furosemide 40 MG/4 ML VIAL IVPUSH ONE (16:00)
[2021-11-24] MEDS ORDERED: Glucagon,Human Recombinant 1 MG Vial IM PRN (16:40)
[2021-11-24] MEDS ORDERED: Insulin Lispro 100 Unit/ML 3 ML KwikPen SUBCUT ONE (16:40)
[2021-11-24] MEDS ORDERED: 50% Dextrose in Water 50 ML Syringe IVPUSH PRN (16:40)
[2021-11-24] MEDS: atorvaSTATin 20 MG Tab PO SCH (21:45)
[2021-11-24] MEDS: Melatonin 3 MG Tab PO PRN (21:54)
[2021-11-25] MEDS: Albuterol/Ipratropium 3.0-0.5 MG/3 ML Neb Soln NEB SCH ×4 (07:03→21:26)
[2021-11-25] MEDS: Formoterol/Mometasone 100-5 MCG 8.8 GM Inhaler IH SCH ×2 (07:03→21:29)
[2021-11-25] MEDS: Insulin Lispro 100 Unit/ML 3 ML KwikPen SUBCUT SCH ×4 (07:49→21:28)
[2021-11-25] MEDS: Pantoprazole 40 MG Tab.CR PO SCH ×2 (07:50→16:31)
[2021-11-25] MEDS: metFORMIN 500 MG Tab PO SCH ×2 (07:50→16:32)
[2021-11-25] MEDS: predniSONE 20 MG Tab PO SCH (07:52)
[2021-11-25] MEDS: Loratadine 10 MG Tab PO SCH (09:35)
[2021-11-25] MEDS: Aspirin 81 MG Tab.EC PO SCH (09:35)
[2021-11-25] MEDS: Tamsulosin 0.4 MG Cap.ER PO SCH (09:35)
[2021-11-25] MEDS: Furosemide 40 MG Tab PO SCH (09:35)
[2021-11-25] MEDS: Nystatin Crm 15 GM Tube TOP SCH (09:36)
[2021-11-25] MEDS: amLODIPine 5 MG Tab PO SCH (09:36)
[2021-11-25] MEDS: Lisinopril 2.5 MG Tab PO SCH (09:37)
[2021-11-25] MEDS: Metoprolol Succinate 25 MG Tab.ER PO SCH (09:37)
[2021-11-25] MEDS: Clopidogrel 75 MG Tab PO SCH (09:37)
[2021-11-25] MEDS: atorvaSTATin 20 MG Tab PO SCH (21:29)
[2021-11-25] MEDS: Melatonin 3 MG Tab PO PRN (21:30)
[2021-11-26] MEDS: Nystatin Crm 15 GM Tube TOP SCH ×3 (00:32→21:27)
[2021-11-26] MEDS: Albuterol/Ipratropium 3.0-0.5 MG/3 ML Neb Soln NEB SCH ×2 (07:18→10:45)
[2021-11-26] MEDS: Formoterol/Mometasone 100-5 MCG 8.8 GM Inhaler IH SCH ×2 (07:18→21:27)
[2021-11-26] MEDS: Insulin Lispro 100 Unit/ML 3 ML KwikPen SUBCUT SCH ×4 (08:22→21:20)
[2021-11-26] MEDS: metFORMIN 500 MG Tab PO SCH ×2 (08:27→16:42)
[2021-11-26] MEDS: Pantoprazole 40 MG Tab.CR PO SCH ×2 (08:27→16:42)
[2021-11-26] MEDS: predniSONE 20 MG Tab PO SCH (08:27)
[2021-11-26] MEDS: amLODIPine 5 MG Tab PO SCH (09:54)
[2021-11-26] MEDS: Clopidogrel 75 MG Tab PO SCH (09:54)
[2021-11-26] MEDS: Aspirin 81 MG Tab.EC PO SCH (09:54)
[2021-11-26] MEDS: Furosemide 40 MG Tab PO SCH (09:54)
[2021-11-26] MEDS: Tamsulosin 0.4 MG Cap.ER PO SCH (09:54)
[2021-11-26] MEDS: Loratadine 10 MG Tab PO SCH (09:54)
[2021-11-26] MEDS: Metoprolol Succinate 25 MG Tab.ER PO SCH (09:54)
[2021-11-26] MEDS: Lisinopril 2.5 MG Tab PO SCH (09:58)
[2021-11-26] MEDS ORDERED: Furosemide 40 MG Tab PO ONE (15:00)
[2021-11-26] MEDS: atorvaSTATin 20 MG Tab PO SCH (21:27)
[2021-11-26] MEDS ORDERED: Sodium Chloride 0.9% 500 ML IV ONE (23:08)
[2021-11-27] MEDS: Melatonin 3 MG Tab PO PRN (02:23)
[2021-11-27] MEDS: Albuterol 0.083% 2.5 MG/3 ML Neb Soln NEB PRN (05:32)
[2021-11-27] MEDS ORDERED: Sodium Chloride 0.9% 500 ML IV ONE ×3 (05:32→14:03)
[2021-11-27] MEDS ORDERED: Sodium Polystyrene Sulfonate 15 GM/60 ML Susp 60 ML Bot PO ONE ×3 (05:32→19:23)
[2021-11-27] MEDS: Formoterol/Mometasone 100-5 MCG 8.8 GM Inhaler IH SCH ×2 (07:06→20:00)
[2021-11-27] MEDS: Insulin Lispro 100 Unit/ML 3 ML KwikPen SUBCUT SCH ×4 (07:56→21:03)
[2021-11-27] MEDS ORDERED: Furosemide 40 MG Tab PO SCH (08:00)
[2021-11-27] MEDS: Pantoprazole 40 MG Tab.CR PO SCH ×2 (08:25→16:00)
[2021-11-27] MEDS ORDERED: cefTRIAXone 1 GM in Sodium Chloride 0.9% 50 ML IV ONE (09:00)
[2021-11-27] MEDS: metFORMIN 500 MG Tab PO SCH (09:44)
[2021-11-27] MEDS: Nystatin Crm 15 GM Tube TOP SCH ×2 (10:45→20:02)
[2021-11-27] MEDS: Tamsulosin 0.4 MG Cap.ER PO SCH (10:45)
[2021-11-27] MEDS: Aspirin 81 MG Tab.EC PO SCH (10:45)
[2021-11-27] MEDS ORDERED: Sodium Chloride 0.9% 1,000 ML IV SCH (10:45)
[2021-11-27] MEDS: predniSONE 20 MG Tab PO SCH (10:45)
[2021-11-27] MEDS: amLODIPine 5 MG Tab PO SCH (10:45)
[2021-11-27] MEDS: Loratadine 10 MG Tab PO SCH (10:45)
[2021-11-27] MEDS: Clopidogrel 75 MG Tab PO SCH (10:46)
[2021-11-27] MEDS: Metoprolol Succinate 25 MG Tab.ER PO SCH (10:46)
[2021-11-27] MEDS ORDERED: Vancomycin 1 GM SDV IV SCH (11:00)
[2021-11-27] MEDS ORDERED: Albumin Human 25 GM in Premix Bag 1 BAG IV ONE ×2 (11:00→12:00)
[2021-11-27] MEDS: Meropenem 500 MG in Sodium Chloride 0.9% 50 ML IV SCH ×2 (11:25→22:38)
[2021-11-27] MEDS: LORazepam 2 MG/ML SDV IV PRN (13:14)
[2021-11-27] MEDS: atorvaSTATin 20 MG Tab PO SCH (20:03)
[2021-11-28] MEDS ORDERED: Sodium Chloride 0.9% 250 ML IV ONE (03:06)
[2021-11-28] MEDS ORDERED: Calcium Gluconate 2 GM in Sodium Chloride 0.9% 100 ML IV ONE ×2 (06:32→08:00)
[2021-11-28] MEDS: Formoterol/Mometasone 100-5 MCG 8.8 GM Inhaler IH SCH ×2 (07:15→20:51)
[2021-11-28] MEDS: Insulin Lispro 100 Unit/ML 3 ML KwikPen SUBCUT SCH ×4 (07:43→22:17)
[2021-11-28] MEDS: Pantoprazole 40 MG Tab.CR PO SCH ×2 (08:49→16:06)
[2021-11-28] MEDS: Loratadine 10 MG Tab PO SCH (12:01)
[2021-11-28] MEDS: Tamsulosin 0.4 MG Cap.ER PO SCH (12:01)
[2021-11-28] MEDS: amLODIPine 5 MG Tab PO SCH (12:01)
[2021-11-28] MEDS: Aspirin 81 MG Tab.EC PO SCH (12:01)
[2021-11-28] MEDS: Nystatin Crm 15 GM Tube TOP SCH ×2 (12:01→20:52)
[2021-11-28] MEDS: predniSONE 20 MG Tab PO SCH (12:01)
[2021-11-28] MEDS: Clopidogrel 75 MG Tab PO SCH (12:02)
[2021-11-28] MEDS: Metoprolol Succinate 25 MG Tab.ER PO SCH (12:02)
[2021-11-28] MEDS: Meropenem 500 MG in Sodium Chloride 0.9% 50 ML IV SCH (12:21)
[2021-11-28] MEDS ORDERED: SODIUM CHLORIDE 0.9% IV ONE (18:13)
[2021-11-28] MEDS ORDERED: CALCIUM GLUCONATE IV ONE (18:13)
[2021-11-28] MEDS ORDERED: Calcium Gluconate 10% 1 GM/10 ML SDV ONE (18:22)
[2021-11-28] MEDS ORDERED: Sodium Chloride 0.9% 250 ML ONE (18:26)
[2021-11-28] MEDS: atorvaSTATin 20 MG Tab PO SCH (20:52)
[2021-11-29] MEDS: Albuterol/Ipratropium 3.0-0.5 MG/3 ML Neb Soln NEB SCH ×3 (00:18→10:55)
[2021-11-29] MEDS: Meropenem 500 MG in Sodium Chloride 0.9% 50 ML IV SCH ×2 (00:30→10:43)
[2021-11-29] MEDS: Formoterol/Mometasone 100-5 MCG 8.8 GM Inhaler IH SCH (07:30)
[2021-11-29] MEDS: Insulin Lispro 100 Unit/ML 3 ML KwikPen SUBCUT SCH ×2 (07:40→12:59)
[2021-11-29] MEDS: Loratadine 10 MG Tab PO SCH (08:27)
[2021-11-29] MEDS: predniSONE 20 MG Tab PO SCH (08:27)
[2021-11-29] MEDS: Pantoprazole 40 MG Tab.CR PO SCH (08:27)
[2021-11-29] MEDS: Tamsulosin 0.4 MG Cap.ER PO SCH (08:28)
[2021-11-29] MEDS: amLODIPine 5 MG Tab PO SCH (08:28)
[2021-11-29] MEDS: Aspirin 81 MG Tab.EC PO SCH (08:28)
[2021-11-29] MEDS: Nystatin Crm 15 GM Tube TOP SCH (08:29)
[2021-11-29] MEDS: Clopidogrel 75 MG Tab PO SCH (08:30)
[2021-11-29] MEDS ORDERED: Furosemide 20 MG/2 ML VIAL IVPUSH SCH (09:00)
[2021-11-29] MEDS: Norepinephrine Bit/D5W Premix 4 MG in Premix Bag 1 BAG IV SCH ×2 (10:33→13:34)
[2021-11-29] MEDS: LORazepam 2 MG/ML SDV IV PRN (13:25)
[2021-12-01] MEDS ORDERED: Loratadine 10 MG Tab PO SCH (09:00)
== END 2021-11-29 13:45 | DRG 189 ==
LOC: JP.ED 19:11 → JP.MS 20:59 → JP.ICU 11-29 10:13
PROVIDERS: ADMIT Internal Medicine; ATTEND Internal Medicine
PROC: 30233N1 Transfusion of Nonautologous Red Blood Cells into Peripheral Vein, Percutaneous Approach (ICD-10-PCS; principal; 2021-11-26)
PROC: 0W9B3ZZ Drainage of Left Pleural Cavity, Percutaneous Approach (ICD-10-PCS; 2021-11-26)
PROC: 0W993ZZ Drainage of Right Pleural Cavity, Percutaneous Approach (ICD-10-PCS; 2021-11-26)
PROC: 3E033XZ Introduction of Vasopressor into Peripheral Vein, Percutaneous Approach (ICD-10-PCS; 2021-11-29)
PROC: 5A09357 Assistance with Respiratory Ventilation, Less than 24 Consecutive Hours, Continuous Positive Airway Pressure (ICD-10-PCS; 2021-11-29)
DX: J96.01 Acute respiratory failure with hypoxia (principal); N17.0 Acute kidney failure with tubular necrosis; I50.21 Acute systolic (congestive) heart failure; J44.1 Chronic obstructive pulmonary disease with (acute) exacerbation; K92.2 Gastrointestinal hemorrhage, unspecified; I10 Essential (primary) hypertension; I49.9 Cardiac arrhythmia, unspecified; E11.9 Type 2 diabetes mellitus without complications; I13.0 Hypertensive heart and chronic kidney disease with heart failure and stage 1 through stage 4 chronic kidney disease, or unspecified chronic kidney disease; R18.8 Other ascites; E87.2 Acidosis; J91.8 Pleural effusion in other conditions classified elsewhere; J44.0 Chronic obstructive pulmonary disease with (acute) lower respiratory infection; Z66 Do not resuscitate; E78.5 Hyperlipidemia, unspecified; I25.10 Atherosclerotic heart disease of native coronary artery without angina pectoris; K21.9 Gastro-esophageal reflux disease without esophagitis; I95.9 Hypotension, unspecified; E11.22 Type 2 diabetes mellitus with diabetic chronic kidney disease; N18.30 Chronic kidney disease, stage 3 unspecified; H91.90 Unspecified hearing loss, unspecified ear; R91.1 Solitary pulmonary nodule; H54.7 Unspecified visual loss; K42.9 Umbilical hernia without obstruction or gangrene; Z20.822 Contact with and (suspected) exposure to COVID-19; J20.9 Acute bronchitis, unspecified; E87.5 Hyperkalemia; E83.51 Hypocalcemia; D50.9 Iron deficiency anemia, unspecified; E11.65 Type 2 diabetes mellitus with hyperglycemia; T38.0X5A Adverse effect of glucocorticoids and synthetic analogues, initial encounter; Z79.82 Long term (current) use of aspirin; Z79.02 Long term (current) use of antithrombotics/antiplatelets; Z79.52 Long term (current) use of systemic steroids; Z79.899 Other long term (current) drug therapy; Z79.84 Long term (current) use of oral hypoglycemic drugs; Z90.89 Acquired absence of other organs; Z87.891 Personal history of nicotine dependence
CPT/HCPCS: 0241U; 36415; 36430; 36600; 71045; 71046; 71250; 71275; 74018; 74176; 80048; 80053; 80202; 82040; 82150; 82330; 82803; 82945; 82947; 83605; 83615; 83880; 83986; 84132; 84145; 84157; 84484; 85018; 85025; 85027; 86140; 86850; 86900; 86901; 86920; 86922; 87015; 87040; 87070; 87102; 87116; 87205; 87206; 87220; 88112; 88305; 88341; 88342; 89050; 93005; 93306; 94640; 94660; 96374; 97162; 97535; 99285; A9270-GY; J0610; J0696; J1650; J1815; J1940; J2060; J2185; J2270; J2920; J2930; J3370; J3490; J7030; J7040; J7050; J7512; J7620; P9016; Q9967